=== PATIENT | male | born 1955 | race Caucasian/White ===

== ENCOUNTER → 2016-11-17 | Outpatient (CLI) | payer MEDICARE ==
[~2016-11-17] MED LIST: ASCO-262 PO; ASPI-999 PO; ATOR40TA70 PO; ATRV10T PO; B12/1TAB3 PO; BACL10TA PO; BACL20TA PO; CETI10TA23 PO; CYCL10TA9 PO; DIAZ10TA PO; FLUV50TA3 PO; GABA-486 PO; GARL1TAB PO; MECL-124 PO; MULT-974 PO; NAPR-1033 PO; NAPR-243 PO; NF-ESOM40C PO; POTA25TA7 PO; THIO5CAP2 PO; TIZA2TAB3 PO; TRAZ-144 PO; TRM50T PO; [UNRECOGNIZED DRUG - OTHER] PO
--- OUTSIDE RECORDS SUMMARY | 2016-11-17 09:48 | XMS REPORT | Continuity of Care Document ---
Author Author [facility] Organization [facility] Address Unknown Phone Unavailable Care Team Providers Care Advertising Director Name Role Phone JULIO JOHNSON MD PCP Insurance Providers Payer Name Policy Number Subscriber Name Relationship [employer]ps [employer] [id number] Kel Toth 18 Self / Same As Patient Advance Directives Directive Response Recorded Date/Time Advance Directives No 03/24/16 3:39pm Health Care Power of Fish Stringer Assembler No 03/24/16 3:39pm Organ Donor No 03/24/16 3:39pm Resuscitation Status Full Code 03/24/16 3:39pm Problems Active Problems Medical Problem Onset Date Status Dizziness Unknown Acute Dizziness Unknown Acute Fatigue Unknown Acute Fatigue Unknown Acute Heat exhaustion Unknown Acute Occasional tremors Unknown Acute Medications Current Home Medications Medication Dose Units Route Directions Days/Qty Instructions Start Date Diazepam 10 Mg 10 Mg Oral Twice A Day 10/30/11 Esomeprazole Magnesium 40 Mg 40 Mg Oral Daily 10/30/11 Gabapentin 100 Mg 100 Mg Oral Three Times A Day 04/13/15 Thiothixene 5 Mg 5 Mg Oral Daily 04/13/15 Baclofen 20 Mg 20 Mg Oral Twice A Day as needed for Muscle Spasms Fluvoxamine Maleate 50 Mg 50 Mg Oral Daily 03/25/16 Past Home Medications Medication Directions Ordered Status Atorvastatin Calcium 10 Mg Tablet, 40 Mg Oral Daily 10/30/11 Discontinued [Noven] , 1 Tab Oral Daily 10/30/11 Discontinued Cyclobenzaprine Hcl (Flexeril) 10 Mg Tablet, 1 Each Oral Q8hr Prn 10/30/11 Discontinued Naproxen 500 Mg Tablet, 1 Each Oral Three Times A Day And Prn 10/30/11 Discontinued Tramadol Hcl 50 Mg Tab, 50 Mg Oral Q4-6HOURS as needed 10/30/11 Discontinued Meclizine Hcl 25 Mg Tab, 1-2 Tab Oral Q 4-6 Hours as needed for Dizziness Discontinued Baclofen (Lioresal) 10 Mg Tablet, 10 Mg Oral Twice A Day as needed for Muscle Spasms 04/13/15 Discontinued Tizanidine Hcl 2 Mg Tablet, 1 Tab Oral Four Times Daily 04/13/15 Discontinued Trazodone Hcl 50 Mg Tablet, 1 Tab Oral Twice A Day 04/13/15 Discontinued Social History Social History Problem Response Recorded Date/Time Alcohol Use Rarely Uses 03/24/2016 3:39pm Recreational Drug Use N clean for 20 yrs 03/24/2016 3:39pm Recent Foreign Travel No 03/24/2016 3:39pm Recent Infectious Disease Exposure No 03/24/2016 3:39pm Hospitalization with Isolation Denies 03/24/2016 3:39pm Sexually Transmitted Disease No 03/24/2016 3:39pm Smoking Status Never a Smoker 03/24/2016 3:38pm Do you dip or chew tobacco? Yes 04/26/2015 4:05pm Query Response Start Date Stop Date Smoking Status Never a Smoker Hospital Discharge Instructions No hospital discharge instructions. Plan of Care Discharge Date 03/24/16 4:00pm Prescriptions See Medication Section Functional Status No functional status results. Allergies, Adverse Reactions, Alerts Allergen Type Severity Reaction Status Last Updated Codeine Allergy Mild NAUSEA Active 10/30/11 Immunizations Name Given Type Date of Influenza Vaccine 07/19/12 Historical Tetanus Booster (TDap) Less than 5yrs Historical Vital Signs Acute Vital Signs Vital Response Date/Time Pulse Rate (adult) 73 bpm (60 - 90) 03/24/2016 3:39pm O2 Sat by Pulse Oximetry 98 % (88 - 100) 03/24/2016 3:39pm Blood Pressure 131/92 mm Hg 03/24/2016 3:39pm Height (Feet) 5 feet 03/24/2016 3:39pm Height (Inches) 8.00 inches 03/24/2016 3:39pm Height (Calculated Centimeters) 172.317771 cm 03/24/2016 3:39pm Weight (Pounds) 163 pounds 03/24/2016 3:39pm Weight (Ounces) 4.0 oz 03/24/2016 3:39pm Weight (Calculated Grams) 58535.955 gm 03/24/2016 3:39pm Weight (Calculated Kilograms) 74.558958 kilograms 03/24/2016 3:39pm Calculated BMI 27.12 03/24/2016 3:39pm Results No known relevant diagnostic tests, laboratory data and/or discharge summary. Procedures No known history of procedures. Encounters Encounter Location Arrival/Admit Date Discharge/Depart Date Attending Provider Registered Clinic [facility] 03/24/16 3:23pm KEV KLINE DO
--- NOTE | 2016-11-17 10:27 | Diagnostic Imaging Report ---
INDICATION: Chronic back pain. Lumbar spine. FINDINGS: AP and lateral views of lumbar spine show mild degenerative disc changes at L1-L2 and L2-L3. There is a grade 1 spondylolisthesis at L5-S1. Alignment is otherwise normal. There are no compression fractures. IMPRESSION: 1. Grade 1 spondylolisthesis L5-S1. Early degenerative disc changes L1-L2 and L2-L3. There are no acute abnormalities. Dictated by: Dictated on workstation # [id number]
--- NOTE | 2016-11-17 10:40 | Diagnostic Imaging Report ---
INDICATION: Chronic back pain. Thoracic spine. AP and lateral views of the thoracic spine show normal vertebral body height and alignment. Disc spaces are well maintained. Pedicles are intact. IMPRESSION: Negative thoracic spine. Dictated by: Dictated on workstation # [id number]
== END ==
LOC: RAD 09:44
PROVIDERS: ATTEND Nurse Practitioner Family
DX: M54.5 Low back pain (principal); M54.6 Pain in thoracic spine
CPT/HCPCS: 72072; 72100

== ENCOUNTER 2018-02-24 05:37 | Outpatient (CLI) | payer MEDICARE ==
[~2018-02-24] VITALS: Ht 172.7 cm; Wt 77.2 kg
[~2018-02-24 05:37] MED LIST changes: -GARL1TAB PO; +GARL1TAB2 PO
[2018-02-24] MEDS ORDERED: ESOM20CA37 PO (10:17)
[2018-02-24] MEDS ORDERED: DIAZ10TA3 PO (10:17)
[2018-02-24] MEDS ORDERED: SIMV20TA3 PO (10:17)
[2018-02-24] MEDS ORDERED: THIO5CAP2 PO (10:17)
== END 2018-02-24 10:39 ==
LOC: PREOP 05:37
PROVIDERS: ATTEND Surgery
DX: Z01.818 Encounter for other preprocedural examination (principal); Z12.11 Encounter for screening for malignant neoplasm of colon; K21.9 Gastro-esophageal reflux disease without esophagitis

== ENCOUNTER 2018-03-01 09:13 | Day surgery (SDC) | payer MEDICARE ==
[~2018-03-01] VITALS: Ht 172.7 cm; Wt 77.2 kg
[~2018-03-01 09:13] MED LIST changes: +DIAZ10TA3 PO; +ESOM20CA37 PO; +SIMV20TA3 PO
--- OUTSIDE RECORDS SUMMARY | 2018-03-01 09:17 | XMS REPORT ---
Author Author DENISE FERNÁNDEZ Organization [facility] Address [address] [place] [address] Care Team Providers Care Customer Sales Service Manager Name Role Phone DENISE FERNÁNDEZ Unavailable PROBLEMS Type Condition ICD9-CM Code UAX71-MR Code Onset Dates Condition Status SNOMED Code Problem Anxiety state, unspecified F41.1 Active 027690697 Problem Dental examination Z01.20 Active 972900624 Problem Affective disorder 296.90 Active 19843538 ALLERGIES No Known Allergies SOCIAL HISTORY No smoking Hx information available PLAN OF CARE Activity Details Follow Up prn Reason: VITAL SIGNS MEDICATIONS No Known Medications RESULTS No Results PROCEDURES Procedure Date Ordered Related Diagnosis Body Site [facility] VISIT MENTAL HEALTH ESTAB PT Nov 20, 2016 Psychotherapy, patient &/family, 30 minutes, established patient Nov 20, 2016 IMMUNIZATIONS No Known Immunizations
--- OUTSIDE RECORDS SUMMARY | 2018-03-01 09:18 | XMS REPORT ---
Author Author DENISE FERNÁNDEZ Organization [facility] Address [address] [place] [address] Care Team Providers Care Cuff Setter Lockstitch Name Role Phone DENISE FERNÁNDEZ Unavailable PROBLEMS Type Condition ICD9-CM Code LTK46-PP Code Onset Dates Condition Status SNOMED Code Problem Anxiety state, unspecified F41.1 Active 902841549 Problem Dental examination Z01.20 Active 879395524 Problem Affective disorder 296.90 Active 22084376 ALLERGIES No Known Allergies SOCIAL HISTORY No smoking Hx information available PLAN OF CARE Activity Details Follow Up 2 Weeks Reason: VITAL SIGNS MEDICATIONS Medication Instructions Dosage Frequency Start Date End Date Duration Status Hydrocodone-Acetaminophen 10-325 MG Orally every 6 hrs 1 tablet as needed 6h Active Omeprazole 40 MG Orally Once a day 1 capsule 24h Active Thiothixene 5 MG Orally Twice a day 1 capsule 12h Active Valium 5 MG Active Fluvoxamine Maleate 25 MG Orally Once a day 1 tablet at bedtime 24h Active Diazepam 10 MG Orally Twice a day 1 tablet as needed 12h Active Proctozone-HC 2.5 % Rectal Twice a day 1 application to affected area 12h Active Quetiapine Fumarate 50 MG Orally Once a day 1 tablet at bedtime 24h Active RESULTS No Results PROCEDURES Procedure Date Ordered Related Diagnosis Body Site [facility] VISIT MENTAL HEALTH ESTAB PT Nov 10, 2016 Psychotherapy, patient &/family, 30 minutes, established patient Nov 10, 2016 IMMUNIZATIONS No Known Immunizations
--- OUTSIDE RECORDS SUMMARY | 2018-03-01 09:18 | XMS REPORT ---
Author Author RAVEN LANGE [facility] e[employer] Address Unknown Phone Unavailable Care Team Providers Care Oil Extractor Name Role Phone RAVEN LANGE CP Unavailable Allergies No Known Allergies Problems Problem Type Condition Code Onset Dates Condition Status Assessment Dental examination Z01.20 Active Problem Affective disorder 296.90 Active Medications No Known Medications Procedures Procedure Coding System Code Date Billing Notes on claim CPT-4 EC109 Aug 14, 2015 Results No Known Results Summary Purpose eClinicalWorks Submission
--- OUTSIDE RECORDS SUMMARY | 2018-03-01 09:18 | XMS REPORT ---
Author Author DENISE FERNÁNDEZ [facility] Address [address] [place] [address] Care Team Providers Care Line Erector Name Role Phone DENISE FERNÁNDEZ Unavailable PROBLEMS Type Condition ICD9-CM Code OYZ30-VE Code Onset Dates Condition Status SNOMED Code Problem Anxiety state, unspecified F41.1 Active 946372553 Problem Dental examination Z01.20 Active 442292961 Problem Affective disorder 296.90 Active 21049020 ALLERGIES No Known Allergies SOCIAL HISTORY No smoking Hx information available PLAN OF CARE VITAL SIGNS MEDICATIONS No Known Medications RESULTS No Results PROCEDURES No Known procedures IMMUNIZATIONS No Known Immunizations
--- OUTSIDE RECORDS SUMMARY | 2018-03-01 09:18 | XMS REPORT ---
Author Author CHEY GILBERTO Organization [facility] Address [address] [place] [address] Care Team Providers Care Fly Fishing Guide Name Role Phone GILBERTO GUERRIER Unavailable PROBLEMS Type Condition ICD9-CM Code FVH87-KZ Code Onset Dates Condition Status SNOMED Code Problem Anxiety state, unspecified F41.1 Active 584869730 Problem Affective disorder 296.90 Active 07664496 ALLERGIES No Known Allergies ENCOUNTERS Encounter Location Date Diagnosis [facility] [id number] [place] [address] [id number] Jun, Dental examination Z01.20 [facility] [id number] [place] [address] [id number] May, Dental examination Z01.20 and Periapical abscess K04.7 [facility] [id number] [place] [address] [id number] Dec, Dental examination Z01.20 [facility] [id number] [place] [address] [id number] Nov, Dental caries K02.9 [facility] [id number] [place] [address] [id number] Nov, Dental examination Z01.20 [facility] [id number] [place] [address] [phone] Nov, Anxiety state, unspecified F41.1 [facility] [address] [id number] [place] [address] Oct [facility] [id number] [place] [address] [phone] Oct, Anxiety state, unspecified F41.1 [facility] [id number] [place] [address] [id number] Sep, Dental examination Z01.20 [facility] [address] [facility] [id number] [phone] Mar, Dental examination Z01.20 [facility] [address] [facility] [id number] [phone] Oct, Encounter for dental examination Z01.20 [facility] [address] [facility] [id number] [phone] Sep, Encounter for dental examination Z01.20 [facility] [address] [phone] Aug, Encounter for dental examination Z01.20 [facility] [id number] [place] [address] [id number] Jul, Dental examination Z01.20 [facility] [address] [id number] [address] Jun, Affective disorder 296.90 and Roe II diagnosis deferred 799.9 IMMUNIZATIONS No Known Immunizations SOCIAL HISTORY Never Assessed REASON FOR VISIT GREGORY PLAN OF CARE Activity Details Follow Up prn Reason:Filling #4 VITAL SIGNS Blood pressure systolic 128 mmHg 2017-07-06 Blood pressure diastolic 92 mmHg 2017-07-06 MEDICATIONS Medication Instructions Dosage Frequency Start Date End Date Duration Status Pantoprazole Sodium Active Ciprofloxacin HCl Active Baclofen Active MethylPREDNISolone Active Omeprazole 40 MG Orally Once a day 1 capsule 24h Active Trazodone HCl Active Fluticasone Propionate (Inhal) Active Diazepam 10 MG Orally Twice a day 1 tablet as needed 12h Active Oxycodone-Acetaminophen Active Fluvoxamine Maleate 25 MG Orally Once a day 1 tablet at bedtime 24h Active Flucelvax Quadrivalent Active Thiothixene 5 MG Orally Twice a day 1 capsule 12h Active Permethrin Active RESULTS No Results PROCEDURES Procedure Date Ordered Result Body Site LTD ORAL EVALUATION - PROBLEM FOCUS Jul 06, 2017 INTRAORL-PERIAPICAL 1 FILM 04301 Jul 06, 2017 INSTRUCTIONS MEDICATIONS ADMINISTERED No Known Medications MEDICAL (GENERAL) HISTORY Type Description Date Medical History Prednisone Medical History Arthiritis Medical History Back Trouble Medical History Head/neck/jaw injury Medical History Surgery rods/pins/screw left knee Medical History acute bronchitis Medical History anxiety Medical History erectile dysfunction Medical History esophagitis/gerd Medical History hallucination Medical History hypercholesterolemia Medical History insomnia Medical History parasitic infection Surgical History Knee Surgery 2010 Surgical History Knee Surgery 2014 Surgical History Rt. shoulder surgery 2008 Surgical History Elbow repair 2017 Hospitalization History Hospitalization for surgery only Hospitalization History for chest pain 11/04
--- OUTSIDE RECORDS SUMMARY | 2018-03-01 09:18 | XMS REPORT ---
Author Author JOSE CAO Organization [facility] Address [address] [place] [address] Care Team Providers Care Pinmaker Name Role Phone CAOJOSE Unavailable PROBLEMS Type Condition ICD9-CM Code BRO29-NX Code Onset Dates Condition Status SNOMED Code Problem Anxiety state, unspecified F41.1 Active 233176403 Problem Affective disorder 296.90 Active 69547707 ALLERGIES No Known Allergies ENCOUNTERS Encounter Location Date Diagnosis [facility] [id number] [place] [address] [id number] Jun, Dental examination Z01.20 [facility] [id number] [place] [address] [id number] May, Dental examination Z01.20 and Periapical abscess K04.7 [facility] [id number] [place] [address] [phone] Dec, Dental examination Z01.20 [facility] [id number] [place] [address] [id number] Nov, Dental caries K02.9 [facility] [id number] [place] [address] [phone] Nov, Dental examination Z01.20 [facility] [place] [id number] [place] [address] [phone] Nov, Anxiety state, unspecified F41.1 [facility] [address] [id number] [place] [address] Oct [facility] [place] [address] [place] [address] [phone] Oct, Anxiety state, unspecified F41.1 [facility] [id number] [place] [address] [id number] Sep, Dental examination Z01.20 [facility] [address] [facility] [id number] [phone] Mar, Dental examination Z01.20 [facility] [address] [facility] [id number] [phone] Oct, Encounter for dental examination Z01.20 [facility] [address] [facility] [id number] [phone] Sep, Encounter for dental examination Z01.20 [facility] [address] [phone] Aug, Encounter for dental examination Z01.20 [facility] [address] [phone] Jul, Dental examination Z01.20 [facility] [place] [address] [facility] [id number], [place] [address] Jun, Affective disorder 296.90 and Perry II diagnosis deferred 799.9 IMMUNIZATIONS No Known Immunizations SOCIAL HISTORY Never Assessed REASON FOR VISIT GREGORY PLAN OF CARE VITAL SIGNS Blood pressure systolic 113 mmHg 2017-06-04 Blood pressure diastolic 80 mmHg 2017-06-04 MEDICATIONS Medication Instructions Dosage Frequency Start Date End Date Duration Status Omeprazole 40 MG Orally Once a day 1 capsule 24h Active Thiothixene 5 MG Orally Twice a day 1 capsule 12h Active Diazepam 10 MG Orally Twice a day 1 tablet as needed 12h Active Clindamycin HCl 150 MG Orally every 8 hrs 1 capsule 8h May,May 7 days Active Vitamin D Active Valium 5 MG Active Fluvoxamine Maleate 25 MG Orally Once a day 1 tablet at bedtime 24h Active Quetiapine Fumarate 50 MG Orally Once a day 1 tablet at bedtime 24h Active Hydrocodone-Acetaminophen 10-325 MG Orally every 6 hrs 1 tablet as needed 6h Active Proctozone-HC 2.5 % Rectal Twice a day 1 application to affected area 12h Active RESULTS No Results PROCEDURES Procedure Date Ordered Result Body Site LTD ORAL EVALUATION - PROBLEM FOCUS Jun 04, 2017 INTRAORL-PERIAPICAL 1 FILM 00168 Jun 04, 2017 SURG REMOVAL ERUPTED TOOTH Jun 04, 2017 INSTRUCTIONS MEDICATIONS ADMINISTERED No Known Medications [...]
--- OUTSIDE RECORDS SUMMARY | 2018-03-01 09:18 | XMS REPORT ---
Author Author KYLEE SEXTON [facility] Address Unknown Care Team Providers Care Blending Line Attendant Name Role Phone KYLEE SEXTON Unavailable PROBLEMS Type Condition ICD9-CM Code FLF63-FB Code Onset Dates Condition Status SNOMED Code Problem Anxiety state, unspecified F41.1 Active 188247327 Problem Dental examination Z01.20 Active 774483152 Problem Affective disorder 296.90 Active 47522939 ALLERGIES No Known Allergies SOCIAL HISTORY Never Assessed PLAN OF CARE Activity Details Follow Up 1 Week Reason:suture removal, possible flipper adjustment sjf VITAL SIGNS Blood pressure systolic 123 mmHg 2016-12-16 Blood pressure diastolic 68 mmHg 2016-12-16 MEDICATIONS Medication Instructions Dosage Frequency Start Date End Date Duration Status Quetiapine Fumarate 50 MG Orally Once a day 1 tablet at bedtime 24h Active Fluvoxamine Maleate 25 MG Orally Once a day 1 tablet at bedtime 24h Active Thiothixene 5 MG Orally Twice a day 1 capsule 12h Active Omeprazole 40 MG Orally Once a day 1 capsule 24h Active Diazepam 10 MG Orally Twice a day 1 tablet as needed 12h Active Vitamin D Active Hydrocodone-Acetaminophen 10-325 MG Orally every 6 hrs 1 tablet as needed 6h Active Valium 5 MG Active Proctozone-HC 2.5 % Rectal Twice a day 1 application to affected area 12h Active RESULTS No Results PROCEDURES Procedure Date Ordered Result Body Site EXTRAC ERUPTED TOOTH/EXPOSED ROOT Dec 16, 2016 SURG REMOVAL ERUPTED TOOTH Dec 16, 2016 IMMUNIZATIONS No Known Immunizations MEDICAL (GENERAL) HISTORY Type Description Date Medical [...]
--- OUTSIDE RECORDS SUMMARY | 2018-03-01 09:18 | XMS REPORT ---
Author Author KYLEE SEXTON [employer] Address Unknown Phone Unavailable Care Team Providers Care Curriculum Director Name Role Phone KYLEE SEXTON CP Unavailable Allergies, Adverse Reactions, Alerts Substance Reaction Event Type N.K.D.A. Info Not Available Non Drug Allergy Problems Problem Type Condition Code Onset Dates Condition Status Problem Affective disorder 296.90 Active Assessment Encounter for dental examination Z01.20 Active Problem Encounter for dental examination Z01.20 Active Medications Medication Code System Code Instructions Start Date End Date Status Dosage Thiothixene [facility] [address]-39 5 MG Orally Twice a day 1 capsule [place] [facility] [address]-14 10-325 MG Orally every 6 hrs 1 tablet as needed [place]ora [facility] [address]-69 Orally not defined Omeprazole [facility] [address]-50 40 MG Orally Once a day 1 capsule Cefadroxil [facility] [address]-68 500 MG/5ML Orally not defined Proctozone-HC [facility] [address]-55 2.5 % Rectal Twice a day 1 application to affected area Valium [facility] [address]-08 5 MG Orally not defined Quetiapine Fumarate [facility] [address]-91 50 MG Orally Once a day 1 tablet at bedtime Bactrim DS [facility] [address]-69 800-160 MG Orally Once a day 1 tablet Hydrocodone-Acetaminophen [facility] [address]-36 10-325 MG Orally every 6 hrs 1 tablet as needed Procedures Procedure Coding System Code Date INTRAORL-PERIAPICAL 1 FILM 93600 CPT-4 D0220 Oct 03, 2015 BITEWING - SINGLE FILM CPT-4 D0270 Oct 03, 2015 LTD ORAL EVALUATION - PROBLEM FOCUS CPT-4 D0140 Oct 03, 2015 Vital Signs Date/Time: Oct 03, 2015 Blood Pressure Diastolic 79 mmHg Blood Pressure Systolic 113 mmHg Results No Known Results Summary Purpose eClinicalWorks Submission
--- OUTSIDE RECORDS SUMMARY | 2018-03-01 09:18 | XMS REPORT ---
Author Author KYLEE SEXTON [facility] Address Unknown Care Team Providers Care Bench Lay Out Technician Name Role Phone DARSHAN KYLEE Unavailable PROBLEMS Type Condition ICD9-CM Code RAO46-YZ Code Onset Dates Condition Status SNOMED Code Problem Anxiety state, unspecified F41.1 Active 169018381 Problem Dental examination Z01.20 Active 197421473 Problem Affective disorder 296.90 Active 04806095 ALLERGIES Substance Reaction Event Type Date Status N.K.D.A. Unknown Non Drug Allergy Sep, Unknown SOCIAL HISTORY No smoking Hx information available PLAN OF CARE Activity Details Follow Up prn Reason:prophy VITAL SIGNS Blood pressure systolic 130 mmHg 2016-09-24 Blood pressure diastolic 99 mmHg 2016-09-24 MEDICATIONS Medication Instructions Dosage Frequency Start Date End Date Duration Status Omeprazole 40 MG Orally Once a day 1 capsule 24h Active Diazepam 10 MG Orally Twice a day 1 tablet as needed 12h Active Thiothixene 5 MG Orally Twice a day 1 capsule 12h Active Fluvoxamine Maleate 25 MG Orally Once a day 1 tablet at bedtime 24h Active RESULTS No Results PROCEDURES Procedure Date Ordered Related Diagnosis Body Site RESIN COMPOS - 3 SURFACES POSTERIOR Oct 28, 2016 IMMUNIZATIONS No Known Immunizations
--- OUTSIDE RECORDS SUMMARY | 2018-03-01 09:19 | XMS REPORT ---
Author Author RAVEN LANGE [employer] Address Unknown Phone Unavailable Care Team Providers Care Community Affairs Director Name Role Phone RAVEN LANGE CP Unavailable Allergies, Adverse Reactions, Alerts Substance Reaction Event Type N.K.D.A. Info Not Available Non Drug Allergy Problems Problem Type Condition Code Onset Dates Condition Status Problem Affective disorder 296.90 Active Assessment Encounter for dental examination Z01.20 Active Problem Encounter for dental examination Z01.20 Active Medications Medication Code System Code Instructions Start Date End Date Status Dosage Quetiapine Fumarate [facility] [address]-00 50 MG Orally Once a day 1 tablet at bedtime [place] [facility] [address]-95 10-325 MG Orally every 6 hrs 1 tablet as needed Restora [facility] [address]-63 Orally not defined Proctozone-HC [facility] [address]-30 2.5 % Rectal Twice a day 1 application to affected area Valium [facility] [address]-39 5 MG Orally not defined Hydrocodone-Acetaminophen [facility] [address]-63 10-325 MG Orally every 6 hrs 1 tablet as needed Cefadroxil [facility] [address]-86 500 MG/5ML Orally not defined Omeprazole [facility] [address]-06 40 MG Orally Once a day 1 capsule Thiothixene [facility] [address]-85 5 MG Orally Twice a day 1 capsule Procedures Procedure Coding System Code Date Periodontal scaling and root CPT-4 D4341 Sep 07, 2015 Periodontal scaling and root CPT-4 D4341 Sep 07, 2015 Vital Signs Date/Time: Nov 02, 2015 Blood Pressure Diastolic 59 mmHg Blood Pressure Systolic 125 mmHg Cardiac Monitoring Heart Rate 61 bpm Results No Known Results Summary Purpose eClinicalWorks Submission
--- OUTSIDE RECORDS SUMMARY | 2018-03-01 09:19 | XMS REPORT ---
Author Author RAVEN LANGE [employer] Address Unknown Phone Unavailable Care Team Providers Care Gut Sorter Name Role Phone RAVEN LANGE CP Unavailable Allergies, Adverse Reactions, Alerts Substance Reaction Event Type N.K.D.A. Info Not Available Non Drug Allergy Problems Problem Type Condition Code Onset Dates Condition Status Problem Affective disorder 296.90 Active Assessment Encounter for dental examination Z01.20 Active Problem Encounter for dental examination Z01.20 Active Medications Medication Code System Code Instructions Start Date End Date Status Dosage Restora [facility] [address]-22 Orally not defined Bactrim DS [facility] [address]-61 800-160 MG Orally Once a day 1 tablet Quetiapine Fumarate [facility] [address]-28 50 MG Orally Once a day 1 tablet at bedtime Thiothixene [facility] [address]-56 5 MG Orally Twice a day 1 capsule Cefadroxil [facility] [address]-56 500 MG/5ML Orally not defined Omeprazole [facility] [address]-02 40 MG Orally Once a day 1 capsule Aguirre [facility] [address]-46 10-325 MG Orally every 6 hrs 1 tablet as needed Proctozone-HC [facility] [address]-95 2.5 % Rectal Twice a day 1 application to affected area Valium [facility] [address]-33 5 MG Orally not defined Hydrocodone-Acetaminophen [facility] [address]-05 10-325 MG Orally every 6 hrs 1 tablet as needed Procedures Procedure Coding System Code Date INTRAORL-PERIAPICAL EA ADD FILM CPT-4 D0230 Sep 07, 2015 INTRAORL-PERIAPICAL EA ADD FILM CPT-4 D0230 Sep 07, 2015 INTRAORL-PERIAPICAL 1 FILM 06626 CPT-4 D0220 Sep 07, 2015 PANORAMIC FILM SEE ALSO CODE 98575 CPT-4 D0330 Sep 07, 2015 BITEWINGS - FOUR FILMS CPT-4 D0274 Sep 07, 2015 Vital Signs Date/Time: Sep 07, 2015 Blood Pressure Diastolic 76 mmHg Blood Pressure Systolic 123 mmHg Cardiac Monitoring Heart Rate 60 bpm Results No Known Results Summary Purpose [employer] Submission
--- OUTSIDE RECORDS SUMMARY | 2018-03-01 09:19 | XMS REPORT ---
Author Author DENISE FERNÁNDEZ Organization [employer] Address Unknown Phone Unavailable Care Team Providers Care Shop Firer/Fireman Name Role Phone DENISE FERNÁNDEZ CP Unavailable Allergies No Known Allergies Problems Problem Type Condition ICD-9 Code Onset Dates Condition Status Assessment Affective disorder 296.90 Active Assessment Port [place] II diagnosis deferred 799.9 Active Problem Affective disorder 296.90 Active Medications No Known Medications Procedures Procedure Coding System Code Date Psych diagnostic evaluation, new patient CPT-4 16839 Jun 29, 2015 [facility] VISIT MENTAL HEALTH NEW PT CPT-4 G0469 Jun 29, 2015 Results No Known Results Summary Purpose [employer] Submission
--- OUTSIDE RECORDS SUMMARY | 2018-03-01 09:19 | XMS REPORT ---
Author Author KYLEE SEXTON [facility] Address Unknown Care Team Providers Care Mud Grinder Name Role Phone KYLEE SEXTON Unavailable PROBLEMS Type Condition ICD9-CM Code FNN25-ZP Code Onset Dates Condition Status SNOMED Code Problem Anxiety state, unspecified F41.1 Active 329253264 Problem Dental examination Z01.20 Active 171514540 Problem Affective disorder 296.90 Active [id number] ALLERGIES No Known Allergies SOCIAL HISTORY Never Assessed PLAN OF CARE Activity Details Follow Up 1.5Week Reason:one hour. ext 8 and 10/seat flipper VITAL SIGNS MEDICATIONS Medication Instructions Dosage Frequency Start Date End Date Duration Status Thiothixene 5 MG Orally Twice a day 1 capsule 12h Active Omeprazole 40 MG Orally Once a day 1 capsule 24h Active Quetiapine Fumarate 50 MG Orally Once a day 1 tablet at bedtime 24h Active Fluvoxamine Maleate 25 MG Orally Once a day 1 tablet at bedtime 24h Active Diazepam 10 MG Orally Twice a day 1 tablet as needed 12h Active Valium 5 MG Active Proctozone-HC 2.5 % Rectal Twice a day 1 application to affected area 12h Active Hydrocodone-Acetaminophen 10-325 MG Orally every 6 hrs 1 tablet as needed 6h Active RESULTS No Results PROCEDURES Procedure Date Ordered Result Body Site INTERIM PARTIAL DENTURE Dec 02, 2016 Billing Notes on claim Dec 02, 2016 IMMUNIZATIONS No Known Immunizations MEDICAL (GENERAL) [...]
--- OUTSIDE RECORDS SUMMARY | 2018-03-01 09:20 | XMS REPORT | Continuity of Care Document ---
Author Author [facility] Organization [facility] Address Unknown Phone Unavailable Allergies Active Description Code Type Severity Reaction Onset Reported/Identified Relationship to Patient Clinical Status Yes NO KNOWN DRUG ALLERGIES NO KNOWN DRUG ALLERG UNKNOWN Yes codeine [id number] Drug Allergy Mild NAUSEA 02/24/2018 Medications Medication Packaging Start Date Stop Date Route Dosage Sig AMOX-CLAV 875/125 TAB 875 MG-125MG (AUGMENTIN) TAB 11/27/2016 11/27/2016 ONCE&0926 RabAvert (PF) (rabies vaccine, pcec (PF)) IM suspension for reconstitution ML 11/27/20162016 ONCE&1028 RabAvert (PF) (rabies vaccine, pcec (PF)) IM suspension for reconstitution ML 11/30/20162016 ONCE&0851 RabAvert (PF) (rabies vaccine, pcec (PF)) IM suspension for reconstitution ML 12/04/20162016 ONCE&0856 RabAvert (PF) (rabies vaccine, pcec (PF)) IM suspension for reconstitution ML 12/11/20162016 ONCE&0928 Problems Date Dx Coded Attending Type Code Diagnosis Diagnosed By 10/30/2011 Ot 272.4 HYPERLIPIDEMIA NEC/NOS 10/30/2011 Ot 305.1 TOBACCO USE DISORDER 10/30/2011 Ot 724.1 PAIN IN THORACIC SPINE 10/30/2011 Ot 729.1 MYALGIA AND MYOSITIS NOS 10/30/2011 Ot 786.05 SHORTNESS OF BREATH 10/30/2011 Ot V58.69 OTH MED,LT, CURRENT USE 11/06/2012 Ot 564.00 UNSPEC CONSTIPATION 11/06/2012 Ot 789.09 ABDOMINAL PAIN, OTHER SPECIFIED SITE 09/12/2014 Ot 717.0 09/12/2014 Ot 443.89 09/12/2014 Ot 756.3 09/12/2014 BONI PETTY APRN Ot 608.9 09/12/2014 CARLINE LEWIS DO Ot 719.40 JOINT PAIN-UNSPEC 09/12/2014 CARLINE LEWIS DO Chris Ot 729.1 MYALGIA AND MYOSITIS NOS 09/12/2014 CARLINE LEWIS DO Chris Ot 780.4 DIZZINESS AND GIDDINESS 09/12/2014 DEBBIE PHIPPS CARLINE Chris Ot 780.79 OTH MALAISE FATIGUE 09/13/2014 BONI PETTY Jose Ramon PRESSED OR BLOWN GLASS WORKER Ot 608.9 10/23/2014 BONI PETTY Jose Ramon INIGUEZ Ot 298.9 10/23/2014 BONI PETTY Jose Ramon PRESSED OR BLOWN GLASS WORKER Ot 789.00 12/11/2014 Ot 717.0 12/11/2014 Ot 443.89 12/11/2014 Ot 756.3 12/11/2014 BONI PETTY Jose Ramon PRESSED OR BLOWN GLASS WORKER Ot 608.9 12/11/2014 BONI PETTY Jose Ramon PRESSED OR BLOWN GLASS WORKER Ot 298.9 12/11/2014 BONI PETTY Jose Ramon PRESSED OR BLOWN GLASS WORKER Ot 789.00 01/15/2015 Ot 717.0 01/15/2015 Ot 443.89 01/15/2015 Ot 756.3 01/15/2015 BONI PETTY Jose Ramon PRESSED OR BLOWN GLASS WORKER Ot 608.9 01/15/2015 BONI PETTY Jose Ramon PRESSED OR BLOWN GLASS WORKER Ot 298.9 01/15/2015 BONI PETTY Jose Ramon PRESSED OR BLOWN GLASS WORKER Ot 789.00 01/15/2015 Ot 724.02 02/16/2015 ALEX GRANGER, JULIO Perez Ot 786.59 02/16/2015 Ot 717.0 02/16/2015 Ot 443.89 02/16/2015 Ot 756.3 02/16/2015 PETTY BONI Jose Ramon INIGUEZ Ot 608.9 02/16/2015 BONI PETTY Jose Ramon PRESSED OR BLOWN GLASS WORKER Ot 298.9 02/16/2015 BONI PETTY Jose aRmon PRESSED OR BLOWN GLASS WORKER Ot 789.00 02/16/2015 Ot 724.02 02/16/2015 LUDIN GRANGER, VIDHI Burdick Ot 721.3 02/16/2015 VIDHI NOLAND MD Ot 722.52 02/16/2015 VIDHI NOLAND MD Ot V58.69 02/16/2015 ALEX GRANGER, JULIO Perez Ot 733.42 02/16/2015 ALEX GRANGER, JULIO Perez Ot 789.00 02/16/2015 ALEX GRANGER, JULIO Perez Ot 786.59 02/16/2015 VIDHI NOLAND MD Ot 721.3 02/16/2015 VIDHI NOLAND MD Ot 722.52 02/16/2015 VIDHI NOLAND MD Ot V58.69 02/16/2015 JULIO JOHNSON MD Ot 733.42 02/16/2015 JULIO JOHNSON MD Ot 789.00 02/20/2015 VIDHI NOLAND MD Ot 721.3 02/20/2015 VIDHI NOLAND MD Ot 722.52 02/20/2015 VIDHI NOLAND MD Ot V58.69 02/20/2015 JULIO JOHNSON MD Ot 786.59 02/20/2015 JULIO JOHNSON MD Ot 733.42 02/20/2015 JULIO JOHNSON MD Ot 789.00 04/13/2015 JULI DAWN MD Ot 992.5 HEAT EXHAUSTION NOS 04/13/2015 JULI DAWN MD Ot E000.8 OTHER EXTERNAL CAUSE STATUS 04/13/2015 JULI DAWN MD Ot E900.0 EXCESSIVE HEAT: WEATHER 04/13/2015 JULI DAWN MD Ot T67.5XXA HEAT EXHAUSTION, UNSPECIFIED, INITIAL EN 04/13/2015 JULI DAWN MD Ot X30.XXXA EXPOSURE TO EXCESSIVE NATURAL HEAT, INIT 04/13/2015 JULI DAWN MD Ot Y99.8 OTHER EXTERNAL CAUSE STATUS 04/26/2015 NOEL DOYLE MD Ot 272.0 PURE HYPERCHOLESTEROLEM 04/26/2015 NOEL DOYLE MD Ot 781.0 ABN INVOLUN MOVEMENT NEC 04/26/2015 NOEL DOYLE MD Ot 786.50 CHEST PAIN NOS 04/26/2015 NOEL DOYLE MD Ot E78.0 PURE HYPERCHOLESTEROLEMIA 04/26/2015 NOEL DOYLE MD Ot V58.69 OT MED,LT,CURRENT USE 05/08/2015 JULIO JOHNSON MD Ot 733.42 05/08/2015 JULIO JOHNSON MD Ot 789.00 05/08/2015 JULIO JOHNSON MD Ot 786.59 05/08/2015 VIDHI NOLAND MD Ot 721.3 05/08/2015 VIDHI NOLAND MD Ot 722.52 05/08/2015 VIDHI NOLAND MD Ot V58.69 05/21/2015 LUDIN GRANGER, VIDHI Burdick Ot 721.3 05/21/2015 VIDHI NOLAND MD Ot 722.52 05/21/2015 VIDHI NOLAND MD Ot V58.69 05/21/2015 ALEX GRANGER, JULIO Perez Ot 733.42 05/21/2015 ALEX GRANGER, JULIO Perez Ot 789.00 05/21/2015 ALEX GRANGER, JULIO Perez Ot 786.59 05/24/2015 BONI PETTY PRESSED OR BLOWN GLASS WORKER Ot 780.4 06/12/2015 VIDHI NOLAND MD Ot 721.3 06/12/2015 VIDHI NOLAND MD Ot 722.52 06/12/2015 VIDHI NOLAND MD Ot V58.69 06/12/2015 ALEX GRANGER, JULIO Perez Ot 733.42 06/12/2015 ALEX GRANGER, JULIO Perez Ot 789.00 06/12/2015 ALEX GRANGER, JULIO Perez Ot 786.59 07/12/2015 Ot 717.0 07/12/2015 Ot 443.89 07/12/2015 Ot 756.3 07/12/2015 BONI PETTY PRESSED OR BLOWN GLASS WORKER Ot 608.9 07/12/2015 BONI PETTY PRESSED OR BLOWN GLASS WORKER Ot 298.9 07/12/2015 BONI PETTY APRN Ot 789.00 07/12/2015 Ot 724.02 07/12/2015 VDIHI NOLAND MD Ot 721.3 07/12/2015 VIDHI NOLAND MD Ot 722.52 07/12/2015 VIDHI NOLAND MD Ot V58.69 07/12/2015 ALEX GRANGER, JULIO Perez Ot 733.42 07/12/2015 ALEX GRANGER, JULIO Perez Ot 789.00 07/12/2015 ALEX GRANGER, JULIO Perez Ot 786.59 07/12/2015 BONI PETTY PRESSED OR BLOWN GLASS WORKER Ot 780.4 07/12/2015 VIDHI NOLAND MD Ot 721.3 07/12/2015 VIDHI NOLAND MD Ot 722.52 07/12/2015 VIDHI NOLAND MD Ot V58.69 07/13/2015 BONI PETTY PRESSED OR BLOWN GLASS WORKER Ot 780.4 07/13/2015 JULIO JOHNSON MD Ot 786.59 07/13/2015 ALEX GRANGER, JULIO Perez Ot 733.42 07/13/2015 ALEX GRANGER, JULIO Perez Ot 789.00 07/13/2015 Ot 724.02 08/03/2015 VIDHI NOLAND MD Ot M51.26 OTHER INTERVERTEBRAL DISC DISPLACEMENT, 08/07/2015 Ot 724.02 08/07/2015 Ot M48.06 08/07/2015 VIDHI NOLAND MD Ot 721.3 08/07/2015 VIDHI NOLAND MD Ot 722.52 08/07/2015 VIDHI NOLAND MD Ot M47.817 08/07/2015 VIDHI NOLAND MD Ot V58.69 08/07/2015 ALEX GRANGER, JULIO Perez Ot 733.42 08/07/2015 ALEX GRANGER, JULIO Perez Ot 789.00 08/07/2015 ALEX GRANGER, JULIO Perez Ot M87.059 08/07/2015 ALEX GRANGER, JULIO Perez Ot R10.9 08/07/2015 ALEX GRANGER, JULIO Perez Ot 786.59 08/07/2015 BONI PETTY PRESSED OR BLOWN GLASS WORKER Ot 780.4 08/07/2015 BONI PETTY PRESSED OR BLOWN GLASS WORKER Ot R42 08/31/2015 SIMEON FORD MEDICAL RECEPTIONIST Ot M23.261 10/29/2015 SIMEON FORD MEDICAL RECEPTIONIST Ot M23.261 11/13/2015 SIMEON FORD MEDICAL RECEPTIONIST Ot M23.261 01/08/2016 FARHAD HERZOG MD Ot M75.111 01/08/2016 FARHAD HERZOG MD Ot M75.112 01/28/2016 FARHAD HERZOG MD Ot M75.111 01/28/2016 FARHAD HERZOG MD Ot M75.112 02/13/2016 FARHAD HERZOG MD Ot M75.111 INCOMPLETE ROTATR-CUFF TEAR/RUPTR OF R S 02/13/2016 FARHAD HERZOG MD Ot M75.112 INCOMPLETE ROTATR-CUFF TEAR/RUPTR OF L S 03/20/2016 Ot 717.0 OLD BUCKET TEAR MED MEN 03/20/2016 Ot 443.89 PERIPH VASCULAR DIS NEC 03/20/2016 Ot 756.3 RIB STERNUM ANOMAL NEC 03/20/2016 MARCIA PETTYCRISTY Albright PRESSED OR BLOWN GLASS WORKER Ot 608.9 MALE GENITAL DIS NOS 03/20/2016 JOVANNY MARCIACRISTY Albright PRESSED OR BLOWN GLASS WORKER Ot 298.9 PSYCHOSIS NOS 03/20/2016 PETTY MARCIACRISTY Albright PRESSED OR BLOWN GLASS WORKER Ot 789.00 ABDOMINAL PAIN, UNSPECIFIED SITE 03/20/2016 Ot 724.02 SPINAL STENOSIS, LUMBAR REG, W/OUT NEURO 03/20/2016 Ot M48.06 SPINAL STENOSIS, LUMBAR REGION 03/20/2016 VIDHI NOLAND MD Ot 721.3 LUMBOSACRAL SPONDYLOSIS 03/20/2016 VIDHI NOLAND MD Ot 722.52 LUMB/LUMBOSAC DISC DEGEN 03/20/2016 VIDHI NOLAND MD Ot M47.817 SPONDYLS W/O MYELOPATHY OR RADICULOPATHY 03/20/2016 VIDHI NOLAND MD Ot V58.69 OT MED,LT,CURRENT USE 03/20/2016 ALEX GRANGER, JULIO Perez Ot 733.42 ASEPTIC NECROSIS FEMUR 03/20/2016 ALEX GRANGER, JULIO Perez Ot 789.00 ABDOMINAL PAIN, UNSPECIFIED SITE 03/20/2016 JULIO JOHNSON MD Ot 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 03/20/2016 ALEX GRANGER, JULIO Perez Ot R10.9 UNSPECIFIED ABDOMINAL PAIN 03/20/2016 ALEX GRANGER, JULIO Perez Ot 786.59 CHEST PAIN NEC 03/20/2016 BONI PETTY PRESSED OR BLOWN GLASS WORKER Ot 780.4 DIZZINESS AND GIDDINESS 03/20/2016 BONI PETTY APRN Ot R42 DIZZINESS AND GIDDINESS 03/20/2016 SIMEON FORD [facility] Ot M23.261 DERANGEMENT OF LAT MENSC DUE TO OLD TEAR 03/20/2016 MINO GRANGER, FARHAD Swanson Ot M75.111 INCOMPLETE ROTATR-CUFF TEAR/RUPTR OF R S 03/20/2016 FARHAD HERZOG MD Ot M75.112 INCOMPLETE ROTATR-CUFF TEAR/RUPTR OF L S 03/24/2016 Ot 717.0 OLD BUCKET TEAR MED MEN 03/24/2016 Ot 443.89 PERIPH VASCULAR DIS NEC 03/24/2016 Ot 756.3 RIB STERNUM ANOMAL NEC 03/24/2016 BONI PETTY PRESSED OR BLOWN GLASS WORKER Ot 608.9 MALE GENITAL DIS NOS 03/24/2016 BONI PETTY PRESSED OR BLOWN GLASS WORKER Ot 298.9 PSYCHOSIS NOS 03/24/2016 MARCIA PETTYCRISTY Albright PRESSED OR BLOWN GLASS WORKER Ot 789.00 ABDOMINAL PAIN, UNSPECIFIED SITE 03/24/2016 Ot 724.02 SPINAL STENOSIS, LUMBAR REG, W/OUT NEURO 03/24/2016 Ot M48.06 SPINAL STENOSIS, LUMBAR REGION 03/24/2016 VIDHI NOLAND MD Ot 721.3 LUMBOSACRAL SPONDYLOSIS 03/24/2016 VIDHI NOLAND MD Ot 722.52 LUMB/LUMBOSAC DISC DEGEN 03/24/2016 VIDHI NOLAND MD Ot M47.817 SPONDYLS W/O MYELOPATHY OR RADICULOPATHY 03/24/2016 VIDHI NOLAND MD Ot V58.69 OT MED,LT,CURRENT USE 03/24/2016 JULIO JOHNSON MD Ot 733.42 ASEPTIC NECROSIS FEMUR 03/24/2016 JULIO JOHNSON MD Ot 789.00 ABDOMINAL PAIN, UNSPECIFIED SITE 03/24/2016 JULIO JOHNSON MD Ot 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 03/24/2016 JULIO JOHNSON MD Ot R10.9 UNSPECIFIED ABDOMINAL PAIN 03/24/2016 JULIO JOHNSON MD Ot 786.59 CHEST PAIN NEC 03/24/2016 BONI PETTY PRESSED OR BLOWN GLASS WORKER Ot 780.4 DIZZINESS AND GIDDINESS 03/24/2016 BONI PETTY PRESSED OR BLOWN GLASS WORKER Ot R42 DIZZINESS AND GIDDINESS 03/24/2016 SIMEON FORD Ot M23.261 DERANGEMENT OF LAT MENSC DUE TO OLD TEAR 03/24/2016 FARHAD HERZOG MD Ot M75.111 INCOMPLETE ROTATR-CUFF TEAR/RUPTR OF R S 03/24/2016 FARHAD HERZOG MD Ot M75.112 INCOMPLETE ROTATR-CUFF TEAR/RUPTR OF L S 03/24/2016 KEV KLINE DO Ot L90.5 SCAR CONDITIONS AND FIBROSIS OF SKIN 03/24/2016 KEV KLINE DO Ot Z01.818 ENCOUNTER FOR OTHER PREPROCEDURAL EXAMIN 03/24/2016 KEV KLINE DO Ot Z11.2 ENCOUNTER FOR SCREENING FOR OTHER BACTER 03/26/2016 KEV KLINE DO Ot L90.5 SCAR CONDITIONS AND FIBROSIS OF SKIN 03/26/2016 RENALDO KLINE DOAIDAN Perez Ot Z01.818 ENCOUNTER FOR OTHER PREPROCEDURAL EXAMIN 03/26/2016 RAISA PHIPPS KEV D Ot Z11.2 ENCOUNTER FOR SCREENING FOR OTHER BACTER 03/27/2016 KEV KLINE DO Ot L90.5 SCAR CONDITIONS AND FIBROSIS OF SKIN 04/01/2016 KEV KLINE DO Ot L90.5 SCAR CONDITIONS AND FIBROSIS OF SKIN 04/02/2016 KEV KLINE DO Ot L90.5 SCAR CONDITIONS AND FIBROSIS OF SKIN 11/17/2016 Ot 717.0 OLD BUCKET TEAR MED MEN 11/17/2016 Ot 443.89 PERIPH VASCULAR DIS NEC 11/17/2016 Ot 756.3 RIB STERNUM ANOMAL NEC 11/17/2016 BONI PETTY PRESSED OR BLOWN GLASS WORKER Ot 608.9 MALE GENITAL DIS NOS 11/17/2016 BONI PETTY PRESSED OR BLOWN GLASS WORKER Ot 298.9 PSYCHOSIS NOS 11/17/2016 BONI PETTY PRESSED OR BLOWN GLASS WORKER Ot 789.00 ABDOMINAL PAIN, UNSPECIFIED SITE 11/17/2016 Ot 724.02 SPINAL STENOSIS, LUMBAR REG, W/OUT NEURO 11/17/2016 Ot M48.06 SPINAL STENOSIS, LUMBAR REGION 11/17/2016 LUDIN GRANGER, VIDHI Burdick Ot 721.3 LUMBOSACRAL SPONDYLOSIS 11/17/2016 VIDHI NOLAND MD Ot 722.52 LUMB/LUMBOSAC DISC DEGEN 11/17/2016 VIDHI NOLAND MD Ot M47.817 SPONDYLS W/O MYELOPATHY OR RADICULOPATHY 11/17/2016 VIDIH NOLAND MD Ot V58.69 OT MED,LT,CURRENT USE 11/17/2016 JULIO JOHNSON MD Ot 733.42 ASEPTIC NECROSIS FEMUR 11/17/2016 JULIO JOHNSON MD Ot 789.00 ABDOMINAL PAIN, UNSPECIFIED SITE 11/17/2016 JULIO JOHNSON MD Ot 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 11/17/2016 JULIO JOHNSON MD Ot R10.9 UNSPECIFIED ABDOMINAL PAIN 11/17/2016 JULIO JOHNSON MD Ot 786.59 CHEST PAIN NEC 11/17/2016 BONI PETTY N PRESSED OR BLOWN GLASS WORKER Ot 780.4 DIZZINESS AND GIDDINESS 11/17/2016 BONI PETTY APRN Ot R42 DIZZINESS AND GIDDINESS 11/17/2016 FORD SIMEON Chris BORJAS Ot M23.261 DERANGEMENT OF LAT MENSC DUE TO OLD TEAR 11/17/2016 MINO GRANGER, FARHAD Swanson Ot M75.111 INCOMPLETE ROTATR-CUFF TEAR/RUPTR OF R S 11/17/2016 FARHAD HERZOG MD Ot M75.112 INCOMPLETE ROTATR-CUFF TEAR/RUPTR OF L S 11/18/2016 BONI PETTY APRN Ot M54.5 LOW BACK PAIN 11/18/2016 BONI PETTY APRN Ot M54.6 PAIN IN THORACIC SPINE 11/27/2016 Timothy Borges 883.0 OPEN WOUND OF FINGERS, WITHOUT MENTION OF COMPLICATION 11/27/2016 Timothy Borges S61.052A OPEN BITE OF LEFT THUMB WITHOUT DAMAGE TO NAIL, INIT ENCNTR 11/28/2016 Iban Amador 883.0 OPEN WOUND OF FINGERS, WITHOUT MENTION OF COMPLICATION 11/28/2016 Iban Amador A S61.052A OPEN BITE OF LEFT THUMB WITHOUT DAMAGE TO NAIL, INIT ENCNTR 11/28/2016 Iban Amador V05.9 NEED FOR PROPHYLACTIC VACCINATION AND INOCULATION AGAINST UNSPECIFIED SINGLE DISEASE 11/28/2016 Iban Amador Z23 ENCOUNTER FOR IMMUNIZATION 11/30/2016 Iban Amador 883.0 OPEN WOUND OF FINGERS, WITHOUT MENTION OF COMPLICATION 11/30/2016 Iban Amador A S61.052A OPEN BITE OF LEFT THUMB WITHOUT DAMAGE TO NAIL, INIT ENCNTR 11/30/2016 Iban Amador V05.9 NEED FOR PROPHYLACTIC VACCINATION AND INOCULATION AGAINST UNSPECIFIED SINGLE DISEASE 11/30/2016 Iban Amador Z23 ENCOUNTER FOR IMMUNIZATION 12/04/2016 Iban Amador A 883.0 OPEN WOUND OF FINGERS, WITHOUT MENTION OF COMPLICATION 12/04/2016 Iban Amador A S61.052A OPEN BITE OF LEFT THUMB WITHOUT DAMAGE TO NAIL, INIT ENCNTR 12/04/2016 Iban Amador V05.9 NEED FOR PROPHYLACTIC VACCINATION AND INOCULATION AGAINST UNSPECIFIED SINGLE DISEASE 12/04/2016 Iban Amador Z23 ENCOUNTER FOR IMMUNIZATION 12/10/2016 BONI PETTY APRN Ot M54.5 LOW BACK PAIN 12/10/2016 BONI PETTY PRESSED OR BLOWN GLASS WORKER Ot M54.6 PAIN IN THORACIC SPINE 12/11/2016 Iban Amador 883.0 OPEN WOUND OF FINGERS, WITHOUT MENTION OF COMPLICATION 12/11/2016 Iban Amador S61.052A OPEN BITE OF LEFT THUMB WITHOUT DAMAGE TO NAIL, INIT ENCNTR 12/11/2016 Iban Amador V01.5 CONTACT WITH OR EXPOSURE TO RABIES 12/11/2016 Iban Amador V05.9 NEED FOR PROPHYLACTIC VACCINATION AND INOCULATION AGAINST UNSPECIFIED SINGLE DISEASE 12/11/2016 Iban Amador Z20.3 CONTACT WITH AND (SUSPECTED) EXPOSURE TO RABIES 12/11/2016 Iban Amador Z23 ENCOUNTER FOR IMMUNIZATION 02/24/2018 Ot 717.0 OLD BUCKET TEAR MED MEN 02/24/2018 Ot 443.89 PERIPH VASCULAR DIS NEC 02/24/2018 Ot 756.3 RIB STERNUM ANOMAL NEC 02/24/2018 BONI PETTY PRESSED OR BLOWN GLASS WORKER Ot 608.9 MALE GENITAL DIS NOS 02/24/2018 BONI PETTY PRESSED OR BLOWN GLASS WORKER Ot 298.9 PSYCHOSIS NOS 02/24/2018 BONI PETTY PRESSED OR BLOWN GLASS WORKER Ot 789.00 ABDOMINAL PAIN, UNSPECIFIED SITE 02/24/2018 Ot 724.02 SPINAL STENOSIS, LUMBAR REG, W/OUT NEURO 02/24/2018 Ot M48.06 SPINAL STENOSIS, LUMBAR REGION 02/24/2018 VIDHI NOALND MD Ot 721.3 LUMBOSACRAL SPONDYLOSIS 02/24/2018 VIDHI NOLAND MD Ot 722.52 LUMB/LUMBOSAC DISC DEGEN 02/24/2018 VIDHI NOLAND MD Ot M47.817 SPONDYLS W/O MYELOPATHY OR RADICULOPATHY 02/24/2018 VIDHI NOLAND MD Ot V58.69 OTH MED,LT,CURRENT USE 02/24/2018 ALEX GRANGER, JULIO Perez Ot 733.42 ASEPTIC NECROSIS FEMUR 02/24/2018 JULIO JOHNSON MD Ot 789.00 ABDOMINAL PAIN, UNSPECIFIED SITE 02/24/2018 JULIO JOHNSON MD Ot 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 02/24/2018 JULIO JOHNSON MD Ot R10.9 UNSPECIFIED ABDOMINAL PAIN 02/24/2018 JULIO JOHNSON MD Ot 786.59 CHEST PAIN NEC 02/24/2018 BONI PETTY Jose Ramon PRESSED OR BLOWN GLASS WORKER Ot 780.4 DIZZINESS AND GIDDINESS 02/24/2018 MARCIA PETTYCRISTY Albright PRESSED OR BLOWN GLASS WORKER Ot R42 DIZZINESS AND GIDDINESS 02/24/2018 SIMEON FORD Ot M23.261 DERANGEMENT OF LAT MENSC DUE TO OLD TEAR 02/24/2018 MINO GRANGER, FARHAD Swanson Ot M75.111 INCOMPLETE ROTATR-CUFF TEAR/RUPTR OF R S 02/24/2018 FARHAD HERZOG MD Ot M75.112 INCOMPLETE ROTATR-CUFF TEAR/RUPTR OF L S 02/24/2018 PETTYBONI Jose Ramon PRESSED OR BLOWN GLASS WORKER Ot M54.5 LOW BACK PAIN 02/24/2018 PETTYMARCIACRISTY Albright PRESSED OR BLOWN GLASS WORKER Ot M54.6 PAIN IN THORACIC SPINE 02/24/2018 Ot 717.0 OLD BUCKET TEAR MED MEN 02/24/2018 Ot 443.89 PERIPH VASCULAR DIS NEC 02/24/2018 Ot 756.3 RIB STERNUM ANOMAL NEC 02/24/2018 JOVANNYMARCIACRISTY Albright PRESSED OR BLOWN GLASS WORKER Ot 608.9 MALE GENITAL DIS NOS 02/24/2018 BONI PETTY Jose Ramon PRESSED OR BLOWN GLASS WORKER Ot 298.9 PSYCHOSIS NOS 02/24/2018 MARCIA PETTYCRISTY Albright PRESSED OR BLOWN GLASS WORKER Ot 789.00 ABDOMINAL PAIN, UNSPECIFIED SITE 02/24/2018 Ot 724.02 SPINAL STENOSIS, LUMBAR REG, W/OUT NEURO 02/24/2018 Ot M48.06 SPINAL STENOSIS, LUMBAR REGION 02/24/2018 VIDHI NOLAND MD Ot 721.3 LUMBOSACRAL SPONDYLOSIS 02/24/2018 VIDHI NOLAND MD Ot 722.52 LUMB/LUMBOSAC DISC DEGEN 02/24/2018 VIDHI NOLAND MD Ot M47.817 SPONDYLS W/O MYELOPATHY OR RADICULOPATHY 02/24/2018 VIDHI NOLAND MD Ot V58.69 OTH MED,LT,CURRENT USE 02/24/2018 JULIO JOHNSON MD Ot 733.42 ASEPTIC NECROSIS FEMUR 02/24/2018 JULIO JOHNSON MD Ot 789.00 ABDOMINAL PAIN, UNSPECIFIED SITE 02/24/2018 JULIO JOHNSON MD Ot 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 02/24/2018 JULIO JOHNSON MD Ot R10.9 UNSPECIFIED ABDOMINAL PAIN 02/24/2018 ALEX RGANGER, JULIO Perez Ot 786.59 CHEST PAIN NEC 02/24/2018 BONI PETTY APRN Ot 780.4 DIZZINESS AND GIDDINESS 02/24/2018 BONI PETTY APRN Ot R42 DIZZINESS AND GIDDINESS 02/24/2018 SIMEON FORD Ot M23.261 DERANGEMENT OF LAT MENSC DUE TO OLD TEAR 02/24/2018 MINO GRANGER, FARHAD Swanson Ot M75.111 INCOMPLETE ROTATR-CUFF TEAR/RUPTR OF R S 02/24/2018 FARHAD HERZOG MD Ot M75.112 INCOMPLETE ROTATR-CUFF TEAR/RUPTR OF L S 02/24/2018 BONI PETTY APRN Ot M54.5 LOW BACK PAIN 02/24/2018 BONI PETTY APRN Ot M54.6 PAIN IN THORACIC SPINE 02/25/2018 JACINTO GRANGER, JITENDRA Stallings Ot K21.9 GASTRO-ESOPHAGEAL REFLUX DISEASE WITHOUT 02/25/2018 JITENDRA CASEY MD Ot Z01.818 ENCOUNTER FOR OTHER PREPROCEDURAL EXAMIN 02/25/2018 JITENDRA CASEY MD, Ot Z12.11 ENCOUNTER FOR SCREENING FOR MALIGNANT NE Procedures There is no data. Results There is no data. Encounters ACCT No. Visit Date/Time Discharge Status Pt. Type Provider Facility Loc./Unit Complaint [id number] 02/24/2018 05:37:00 02/24/2018 10:39:00 DIS Outpatient JITENDRA CASEY MD [facility] PREOP COLONOSCOPY/EGD [id number] 11/17/2016 09:44:00 11/17/2016 23:59:59 CLS Outpatient BONI PETTY APRN [facility] RAD LOW BACK PAIN, THORACIC BACK PAIN [id number] 03/27/2016 07:15:00 03/27/2016 12:55:00 DIS Outpatient [facility] PAINFUL SCAR LEFT UPPER EXTREMITY [id number] 03/24/2016 15:23:00 03/24/2016 16:00:00 DIS Outpatient KEV KLINE DO [facility] PREOP PAINFUL SCAR LEFT UPPER EXTREMITY [id number] 12/18/2015 10:01:00 12/18/2015 23:59:59 CLS Outpatient MINO GRANGER, FARHAD Swanson [facility] RAD RT AND LEFT SHOULDER RTC TEAR [id number] 08/07/2015 15:25:00 08/07/2015 23:59:59 CLS Outpatient SIMEON FORD [facility] RAD RT KNEE LATERAL MENISCUS TEAR [id number] 08/03/2015 08:42:00 08/03/2015 09:53:00 DIS Outpatient VIDHI NOLAND MD [facility] CARD INTREVETREBRAL DISC DISPLACEMENT LUMBAR REGION [id number] 05/03/2015 09:28:00 05/03/2015 23:59:59 CLS Outpatient BONI PETTY APRN [facility] RAD DIZZINESS [id number] 04/26/2015 15:54:00 04/26/2015 17:12:00 DIS Emergency NOEL DOYLE MD [facility] ER CP,DIZZINESS [id number] 04/13/2015 20:23:00 04/13/2015 21:50:00 DIS Emergency JULI DAWN MD [facility] ER POSSIBLE STROKE [id number] 01/23/2015 12:54:00 01/23/2015 23:59:59 CLS Outpatient JULIO JOHNSON MD [facility] RAD CHEST PAIN [id number] 01/18/2015 11:19:00 01/18/2015 23:59:59 CLS Outpatient JULIO JOHNSON MD [facility] RAD ABDOMINAL PAIN [id number] 01/15/2015 12:32:00 01/15/2015 23:59:59 CLS Outpatient VIDHI NOLNAD MD [facility] CARD DDD [id number] 09/21/2014 11:48:00 09/21/2014 23:59:59 CLS Outpatient BONI PETTY APRN [facility] RAD CONFUSION,DIZZINESS, ABD PAIN [id number] 09/12/2014 12:38:00 09/12/2014 15:10:00 DIS Emergency CARLINE LEWIS DO [facility] ER BODYACHES [id number] 08/16/2014 11:59:00 08/16/2014 23:59:59 CLS Outpatient BONI PETTY Jose Ramon PRESSED OR [employer] WORKER [facility] RAD PAIN IN TESTICLES [id number] 03/01/2018 10:30:00 PEN Preadmit JACINTO GRANGER, JITENDRA Stallings [facility] ENDO SCREENING/GERD [id number] 12/11/2014 08:16:00 Document Registration [id number] 09/12/2014 12:38:00 Document Registration [id number] 12/20/2012 15:43:00 Document Registration [id number] 11/06/2012 17:02:00 Document Registration [id number] 09/16/2012 13:17:00 Document Registration [id number] 10/30/2011 20:25:00 Document Registration [id number] 07/06/2017 14:00:00 07/06/2017 23:59:59 CLS Outpatient RIKY NICOLE [facility] [id number] 12/11/2016 09:17:00 12/11/2016 09:35:00 DIS Outpatient Iban Amador [id number] 12/04/2016 08:48:00 12/04/2016 09:00:00 DIS Outpatient Iban Amador [id number] 11/30/2016 08:34:00 11/30/2016 08:48:00 DIS Outpatient Iban Amador [id number] 11/28/2016 09:16:00 11/28/2016 10:20:00 DIS Outpatient Iban Amador [id number] 11/27/2016 09:16:00 11/27/2016 10:50:00 DIS Outpatient Katerina [facility] [id number] 11/27/2016 09:35:22 Document Registration [id number] 05/03/2015 09:29:17 ACT Document Registration
[2018-03-01] MEDS ORDERED: NS IV 500 ML 500 ML ONE (09:22)
[2018-03-01] MEDS ORDERED: NS IV 500 ML 500 ML IV PRN (09:22)
[2018-03-01] MEDS ORDERED: HURRICAINE EXT TUBE (BENZOCAINE) XX PRN (09:30)
[2018-03-01 09:41] VITALS: BP 126/93
[2018-03-01] MEDS ORDERED: fentaNYL INJECTION 100 MCG/2 ML AMP ONE ×2 (12:12→12:13)
[2018-03-01] MEDS ORDERED: HURRICAINE EXT TUBE (BENZOCAINE) ONE (12:13)
[2018-03-01] MEDS ORDERED: MIDAZOLAM 2 MG/2 ML (VERSED) VIAL ONE ×5 (12:13→12:50)
[2018-03-01] MEDS: fentaNYL INJECTION 100 MCG/2 ML AMP IVP PRN ×4 (12:39→12:55)
[2018-03-01] MEDS: MIDAZOLAM 2 MG/2 ML (VERSED) VIAL IVP PRN ×5 (12:42→12:53)
--- NOTE | 2018-03-01 13:10 | Discharge Inst-Simple/Standard ---
Discharge Inst-Standard Discharge Medications New, Converted or Re-Newed RX: Other Patient Instructions/Follow Up Plan of Care/Instructions/FU: Please have him increase Nexium to twice a day. Repeat colonoscopy in 5 years Activity as Tolerated: Yes Discharge Diet: No Restrictions JITENDRA CASEY MD March 01, 2018 1:10 pm
--- NOTE | 2018-03-01 13:12 | History & Physicial ---
History of Present Illness History of Present Illness Reason for visit/HPI To undergo an upper endoscopy regarding symptoms of reflux disease and for screening colonoscopy. Reports a positive family history of colon cancer in his father. Date of Admission 03/01/18 Date Seen by Provider: March 01, 2018 Time Seen by Provider: 11:00 I consulted on this patient on 03/01/18 13:10 Attending Physician Jitendra Yadav MD Admitting Physician Martin Fermin MD Consult Allergies and Home Medications Allergies Coded Allergies: codeine (Verified Allergy, Mild, NAUSEA, 02/24/18) Home Medications Ascorbate Calcium 500 Mg Tablet, 500 MG PO DAILY, (Reported) Baclofen 20 Mg Tablet, 20 MG PO BID PRN for MUSCLE SPASMS, (Reported) Cetirizine HCl 10 Mg Tab.chew, 10 MG PO DAILY, (Reported) Diazepam 10 Mg Tablet, 10 MG PO BID, (Reported) Esomeprazole Magnesium 20 Mg Capsule.dr, 20 MG PO DAILY, (Reported) Fluvoxamine Maleate 50 Mg Tablet, 50 MG PO DAILY, (Reported) Garlic 1 Each Tablet, 1 EACH PO DAILY, (Reported) Multivitamin 1 Each Tablet, 1 EACH PO DAILY, (Reported) Simvastatin 20 Mg Tablet, 20 MG PO HS, (Reported) Thiothixene 5 Mg Capsule, 5 MG PO DAILY, (Reported) Patient Home Medication List Home Medication List Reviewed: Yes Past Owlbsma-Mpbshe-Hettiv Hx Patient Social History Marrital Status: Employed/Student: unemployed Alcohol Use: Occasionally Uses Recreational Drug Use: No Smoking Status: Former Smoker Former Smoker, Quit: Aug 06, 1998 Recent Foreign Travel: No Contact w/other who traveled: No Recent Hopitalizations: No Recent Infectious Disease Expo: No Immunizations Up To Date Tetanus Booster (TDap): Less than 5yrs Date of Influenza Vaccine: Aug 03, 2017 Seasonal Allergies Seasonal Allergies: Yes Surgeries Yes Orthopedic Cardiovascular Yes High Cholesterol Reproductive System Hx Reproductive Disorders: No Sexually Transmitted Disease: No HIV/AIDS: No Gastrointestinal Yes Gastroesophageal Reflux, Chronic Diarrhea Musculoskeletal Yes Arthritis, Chronic Back Pain HEENT History of HEENT Disorders: Yes Loss of Vision: Bilateral Hearing Impairment: Hard of Hearing, Bilateral Hearing Aide Psychosocial Behavioral Health Disorders: Anxiety, Depression Blood Transfusions Adverse Reaction to a Blood Tr: No (N/A) Family Medical History Significant Family History: No Pertinent Family Hx Constitutional: no symptoms reported EENTM: no symptoms reported Respiratory: no symptoms reported Cardiovascular: no symptoms reported Gastrointestinal: see HPI Genitourinary: no symptoms reported Musculoskeletal: back pain, joint pain Skin: no symptoms reported Psychiatric/Neurological: Anxiety Physical Exam Vital Signs Vital Signs - First Documented 03/01/18 09:41 Temp 98.4 Pulse 58 Resp 16 B/P (MAP) 126/93 (104) Pulse Ox 98 O2 Delivery Room Air Capillary Refill : General Appearance: No Apparent Distress Neck: Normal Inspection Respiratory: Lungs Clear Cardiovascular: Regular Rate, Rhythm Gastrointestinal: Non Tender, Soft Rectal: Deferred Back: Normal Inspection Neurologic/Psychiatric: Alert, Oriented x3 Skin: Warm/Dry Assessment/Plan Assessment and Plan Gentleman with symptoms of reflux disease and in need of screening colonoscopy. Discussed in detail. Admission Diagnosis Admission Status: Other (Outpt Proc) JITENDRA YADAV MD March 01, 2018 1:12 pm
--- NOTE | 2018-03-01 13:12 | Conscious Sedation/ASA ---
Conscious Sedation Pre-Proced Time Reviewed: 11:00 ASA Class: 2 Airway Mallampati Classification: ([place] appropriate class) I. II. III, IV Lungs Heart ASA score ASA 1: a normal healthy patient ASA 2: a patient with a mild systemic disease (mid diabetes, controlled hypertension, obesity ASA 3: a patient with a severe systemic disease that limits activity (angina , COPD, prior Myocardial infarction) ASA 4: a patient with an incapacitating disease that is a constant threat to life (CHF, renal failure) ASA 5: a moribund patient not expected to survive 24 hrs. (ruptured aneurysm) ASA 6: a declared brain patient whose organs are being harvested. For emergent operations, add the letter E after the classification Grade 1 Sedation Plan: Discussed options with patient/fam Note The patient is an appropriate candidate to undergo the planned procedure, sedation, and anesthesia. The patient immediately re-assessed prior to indication. JITENDRA CASEY MD March 01, 2018 1:12 pm
[2018-03-01 13:35] VITALS: BP 110/92
[2018-03-01 14:05] VITALS: BP 113/87
[2018-03-01 14:15] VITALS: BP 113/87
--- NOTE | 2018-03-01 17:44 | OPERATIVE REPORT ---
DATE OF SERVICE: 03/01/2018 PROCEDURES: 1. Upper GI endoscopy with antral biopsy. 2. Screening colonoscopy. SURGEON: Jitendra Casey MD INDICATION FOR PROCEDURE: This gentleman came in for an endoscopic assessment of symptoms of gastroesophageal reflux, along with screening colonoscopy. Informed consent was obtained after reviewing the procedures in detail. DESCRIPTION OF THE PROCEDURES: UPPER ENDOSCOPY/ANTRAL BIOPSY: He was placed in left lateral decubitus position and his vital signs were monitored. Conscious sedation was achieved using Versed and fentanyl. The flexible gastroscope was introduced down the esophagus, passed the stomach, into the proximal duodenum. FINDINGS: ESOPHAGUS: A long hiatal hernia with grade II esophagitis. STOMACH: Multiple distal gastric ulcers and shallow erosions. Biopsy for H. pylori was obtained. DUODENUM: Changes of duodenitis were found. He tolerated the procedure well and was turned around in preparation for colonoscopy. IMPRESSION: Symptoms of reflux disease. Grade II esophagitis. Distal gastric ulcers. Helicobacter status pending. COLONOSCOPY: Digital rectal examination was unremarkable. The colonoscope was then introduced into the rectum and advanced all the way up to the cecum. The quality of bowel preparation was excellent. The scope was then withdrawn slowly and the mucosa examined in a systematic fashion. FINDINGS: Very few sigmoid diverticula. No polyps were found. He tolerated the procedures well and was taken back to the nursing area in a stable condition. IMPRESSION: Screening colonoscopy. No polyps. Recommend repeating in 5 years (family history). Job ID: [id number] DocumentID: [id number] Dictated Date: 03/01/2018 13:09:05 Auto Body Mechanic Date: 03/01/2018 17:42:59 Dictated By: JITENDRA CASEY MD MTDD
== END 2018-03-01 14:20 | disposition home or self-care (01) ==
LOC: ENDO 09:13
PROVIDERS: ATTEND Surgery
DX: Z12.11 Encounter for screening for malignant neoplasm of colon (principal); K20.9 Esophagitis, unspecified; K44.9 Diaphragmatic hernia without obstruction or gangrene; K25.9 Gastric ulcer, unspecified as acute or chronic, without hemorrhage or perforation; K31.9 Disease of stomach and duodenum, unspecified; K57.30 Diverticulosis of large intestine without perforation or abscess without bleeding; Z80.0 Family history of malignant neoplasm of digestive organs
CPT/HCPCS: 43239; G0105; 88305

== ENCOUNTER 2018-07-23 08:56 | Emergency (ER) | payer MEDICARE ==
[~2018-07-23] VITALS: Ht 172.7 cm; Wt 77.1 kg
--- NOTE | 2018-07-23 09:25 | ED Back Pain ---
General Chief Complaint: Back Problems Stated Complaint: BACK PAIN Nursing Triage Note: PT CO OF HX OF CHRONIC BACK PAIN AND HAVING FLARE UP CO OF LOWER BACK PAIN. PAIN RADIATES DOWN R LEG, HX SCIATICA Nursing Sepsis Screen: No Definite Risk Source of Information: Patient Exam Limitations: No Limitations History of Present Illness Date Seen by Provider: Jul 23, 2018 Time Seen by Provider: 09:25 Initial Comments The patient reports that he has had back pain for many years. He has had many contacts here mostly for pain. Examination of his imaging shows MRIs of upper and lower extremities and lumbar spine. The most recent lumbar MRI shows some arthritis but not excessive. No mention of spinal stenosis was made. He reports that he then went to the chiropractor but got no improvement. In fact he may have gotten worse as his symptoms had been that of low back pain and some radiation down the right leg. There is now apparently radiation down both legs consistent with sciatica. He reports that previously he had been treated djuq-npd-ljetfco naproxen 1 tablet twice a day but presently he is not even taking that. He also takes some sort of muscle relaxant. Timing/Duration: 2-3 Days (increased symptoms past several days) Radiation: Lower Legs (right and left) Allergies and Home Medications Allergies Coded Allergies: codeine (Verified Allergy, Mild, NAUSEA, 02/24/18) Home Medications Diazepam 10 Mg Tablet, 10 MG PO BID, (Reported) Esomeprazole Magnesium 20 Mg Capsule.dr, 20 MG PO DAILY, (Reported) Garlic 1 Each Tablet, 1 EACH PO DAILY, (Reported) Simvastatin 20 Mg Tablet, 20 MG PO HS, (Reported) Thiothixene 5 Mg Capsule, 5 MG PO DAILY, (Reported) Patient Home Medication List Home Medication List Reviewed: Yes Review of Systems Constitutional: see HPI EENTM: no symptoms reported Respiratory: no symptoms reported Cardiovascular: no symptoms reported Gastrointestinal: no symptoms reported Genitourinary: no symptoms reported Musculoskeletal: back pain, muscle stiffness, muscle cramps Skin: no symptoms reported Psychiatric/Neurological: No Symptoms Reported Past Gkswnpv-Gtakhp-Xngqbd Hx Patient Social History Alcohol Use: Denies Use Recreational Drug Use: No Smoking Status: Former Smoker Former Smoker, Quit: Aug 06, 1998 Recent Foreign Travel: No Contact w/Someone Who Travel: No Recent Infectious Disease Expo: No Recent Hopitalizations: No Physical Abuse: No Sexual Abuse: No Immunizations Up To Date Tetanus Booster (TDap): Less than 5yrs Date of Influenza Vaccine: Aug 03, 2017 Seasonal Allergies Seasonal Allergies: Yes Past Medical History Surgeries: Yes Orthopedic Respiratory: No Cardiac: Yes High Cholesterol Neurological: No Reproductive Disorders: No Sexually Transmitted Disease: No HIV/AIDS: No Gastrointestinal: Yes Gastroesophageal Reflux, Chronic Diarrhea Musculoskeletal: Yes Arthritis, Chronic Back Pain Endocrine: No HEENT: Yes Loss of Vision: Bilateral Hearing Impairment: Hard of Hearing, Bilateral Hearing Aide Cancer: No Psychosocial: Yes ("ANGER ISSUES") Anxiety, Depression Integumentary: No Blood Disorders: No Adverse Reaction/Blood Tranf: No (N/A) Family Medical History No Pertinent Family Hx Physical Exam Vital Signs Vital Signs - First Documented 07/23/18 09:00 Temp 97.1 Pulse 69 Resp 18 B/P (MAP) 142/102 (115) Capillary Refill : Less Than 3 Seconds Height, Weight, BMI Height: 5'8.00" Weight: 170lbs. 4.0oz. 77.742397up; 25.9 BMI Method:Stated General Appearance: Mild Distress HEENT: Normal ENT Inspection Neck: Full Range of Motion Cardiovascular: Regular Rate, Rhythm, No Edema, No Gallop, No JVD, No Murmur, Normal Peripheral Pulses Respiratory: Chest Non Tender, Lungs Clear, Normal Breath Sounds, No Accessory Muscle Use, No Respiratory Distress, Accessory Muscle Use Gastrointestinal: Normal Bowel Sounds, No Organomegaly, No Pulsatile Mass, Non Tender, Soft Moves very stiffly. He required assistance to sit upright from 45 reclining position. He evinced pain from the cervical spine to the coccyx. He reported that his problems had been greater in the right leg over time. He was able to straight leg lift the right about 10 inches off the gurney. He was able to raise the left leg to 60. Deep tendon reflexes were 0. Progress/Results/Core Measures Results/Orders My Orders Orders - SHAVON PRUETT MD Ketorolac Injection (Toradol Injection) (07/23/18 10:00) Methylprednisolone Sod Succ (Solu-Medrol (07/23/18 10:00) Medications Given in ED Current Medications Medications Dose Ordered Sig/Marian Route Start Time Stop Time Status Last Admin Dose Admin Ketorolac Tromethamine 60 mg ONCE ONCE IM 07/23/18 10:00 07/23/18 10:01 DC 07/23/18 10:00 60 MG Methylprednisolone Sodium Succinate 125 mg ONCE ONCE IM 07/23/18 10:00 07/23/18 10:01 DC 07/23/18 10:00 125 MG Vital Signs/I&O 07/23/18 09:00 Temp 97.1 Pulse 69 Resp 18 B/P (MAP) 142/102 (115) Blood Pressure Mean: 115 Departure Impression Primary Impression: low back pain/sciatica Disposition: HOME, SELF-CARE Condition: Stable/Unchanged Departure-Patient Inst. Decision time for Depature: 10:39 Referrals: JULIO JOHNSON MD (PCP/Family) Primary Care Physician Patient Instructions: MANAGING YOUR CHRONIC PAIN Add. Discharge Instructions: All discharge instructions reviewed with patient and/or family. Voiced understanding. Make an appointment to see your provider early next week. Medications as provided. Scripts Tramadol HCl (Tramadol HCl) 50 Mg Tablet 50 MG PO 4 times a day, #20 TAB Prov: SHAVON PRUETT MD 07/23/18 Prednisone (Prednisone) 20 Mg Tab 20 MG PO DAILY, #12 TAB 3 tabs each a.m. Prov: SHAVON PRUETT MD 07/23/18 SHAVON PRUETT MD Jul 23, 2018 09:25
[2018-07-23] MEDS ORDERED: KETOROLAC 60 MG/2 ML VIAL IM ONE (10:00)
[2018-07-23] MEDS ORDERED: methylPREDNISolone 125 MG (Solu-MEDROL) VIAL IM ONE (10:00)
[2018-07-23] MEDS ORDERED: PRD20T PO (10:42)
[2018-07-23] MEDS ORDERED: TRAM50TA2 PO (10:43)
[2018-07-23 11:35] VITALS: BP 136/88
== END 2018-07-23 11:05 | disposition home or self-care (01) ==
LOC: EDUNIT# 08:56 → ER 08:57
DX: M54.41 Lumbago with sciatica, right side (principal); E78.00 Pure hypercholesterolemia, unspecified; K21.9 Gastro-esophageal reflux disease without esophagitis; F41.9 Anxiety disorder, unspecified; F32.9 Major depressive disorder, single episode, unspecified; Z87.19 Personal history of other diseases of the digestive system; Z88.5 Allergy status to narcotic agent; Z87.891 Personal history of nicotine dependence
CPT/HCPCS: 99284

== ENCOUNTER → 2018-08-09 | Outpatient (CLI) | payer MEDICARE ==
[~2018-08-09] MED LIST changes: +PRD20T PO; +TRAM50TA2 PO
--- NOTE | 2018-08-09 13:22 | Diagnostic Imaging Report ---
EXAM: CERVICAL SPINE 3 VIEWS OR LESS INDICATION: LOW BACK PAIN, CERVICAL PAIN, THORACIC PAIN, LEFT LEG WEAKNESS NUMBNESS COMPARISON: None. FINDINGS: Normal alignment. Vertebral body heights are preserved. Mild degenerative endplate changes. No fractures. Normal prevertebral soft tissues. IMPRESSION: Mild spondylotic changes. No acute radiographic findings in the cervical spine. Dictated by: Dictated on workstation # [id number]
--- NOTE | 2018-08-09 13:36 | Diagnostic Imaging Report ---
EXAM: LUMBAR SPINE - 2-3 VIEWS INDICATION: LOW BACK PAIN, ERVICAL PAIN, THORACIC PAIN, LEFT LEG WEAKNESS NUMBNE COMPARISON: Lumbar spine radiographs from 11/17/2016. FINDINGS: There are five lumbar-type vertebral bodies. There is stable grade 1 anterolisthesis of L5 on S1 and probable bilateral pars defects of L5. Moderate diffuse degenerative endplate changes are similar to the prior exam. No acute fractures. Vertebral body heights are preserved. Mild degenerative changes in the sacroiliac joints. Nonspecific bowel gas pattern. IMPRESSION: 1. Stable spondylotic changes in the lumbar spine. 2. Stable grade 1 anterolisthesis of L5 on S1 and bilateral probable pars defects of L5. 3. No acute radiographic findings. Dictated by: Dictated on workstation # [id number]
--- NOTE | 2018-08-09 13:38 | Diagnostic Imaging Report ---
EXAM: T-SPINE 3V-AP, LAT, SWIMMER'S. INDICATION: LOW BACK PAIN, CERVICAL PAIN, THORACIC PAIN, LEFT LEG WEAKNESS AND NUMBNESS. COMPARISON: Thoracic spine radiographs 11/17/2016. FINDINGS: Mild degenerative endplate changes in the thoracic spine. Vertebral body heights are preserved. No fractures. Normal alignment. No suspicious osteoblastic or lytic lesions. Calcified granuloma in the right hilum. IMPRESSION: Mild spondylotic changes in the thoracic spine. No acute radiographic findings. Dictated by: Dictated on workstation # [id number]
== END ==
LOC: RAD 10:08
PROVIDERS: ATTEND Nurse Practitioner Family
DX: M47.812 Spondylosis without myelopathy or radiculopathy, cervical region (principal); M47.816 Spondylosis without myelopathy or radiculopathy, lumbar region; M43.17 Spondylolisthesis, lumbosacral region; M47.814 Spondylosis without myelopathy or radiculopathy, thoracic region
CPT/HCPCS: 72040; 72072; 72100

== ENCOUNTER → 2018-08-18 | Outpatient (CLI) | payer MEDICARE ==
--- NOTE | 2018-08-18 11:16 | Diagnostic Imaging Report ---
PROCEDURE: MRI lumbar spine. TECHNIQUE: Multiplanar, multisequence MRI of the lumbar spine was performed without contrast. INDICATION: Chronic low back pain and left leg numbness and tingling for one week. COMPARISON: No prior studies are available for comparison. FINDINGS: Curvature of lumbar spine is normal. There is grade 1 spondylolisthesis of L5 on S1 with bilateral pars defects at this level. Vertebral body heights are maintained. No acute compression fracture is seen. Benign hemangiolipomas within T12 and L2 vertebral bodies are noted. There is degenerative disc disease at L5-S1 level with disc space narrowing and desiccation as well as marginal osteophyte formation. Conus is unremarkable at the T12-L1 level. T12-L1: Central canal and neural foramina are widely patent. L1-2: Central canal is widely patent. The neural foramina are widely patent. There is some degenerative spurring anteriorly. L2-3: There is some mild ligamentous thickening and facet changes. The central canal remains widely patent. There is mild to moderate left neural foraminal narrowing at this level due to left posterolateral broad-based disc/osteophyte complex. L3-4: Ligamentous thickening and facet changes are present. Central canal is widely patent. Mild to moderate left neural foraminal narrowing is seen due to left posterolateral broad-based disc/osteophyte complex. L4-5: Central canal is widely patent. The neural foramina are patent. L5-S1: Central canal is patent. There is mild bilateral neural foraminal narrowing due to the grade 1 spondylolisthesis. Paraspinous tissues are unremarkable. IMPRESSION: 1. Grade 1 L5-S1 spondylolisthesis with bilateral pars defects. There is mild bilateral neural foraminal narrowing at this level as well. There is also additional multilevel neural foraminal narrowing described level by level above. No central canal stenosis is identified. Dictated by: Dictated on workstation # [id number]
== END ==
LOC: RAD 10:00
PROVIDERS: ATTEND Nurse Practitioner Family
DX: M51.37 Other intervertebral disc degeneration, lumbosacral region (principal); M43.17 Spondylolisthesis, lumbosacral region; M99.73 Connective tissue and disc stenosis of intervertebral foramina of lumbar region; D17.79 Benign lipomatous neoplasm of other sites
CPT/HCPCS: 72148

== ENCOUNTER 2018-12-18 19:53 | Emergency (ER) | payer MEDICARE ==
[~2018-12-18] VITALS: Ht 172.7 cm; Wt 74.8 kg
[2018-12-18] MEDS ORDERED: predniSONE 20 MG TAB PO ONE (20:00)
[2018-12-18] MEDS ORDERED: RX-HYDROCODONE/APAP 5/325 MG #4 TAB PK PO PRN (20:00)
--- NOTE | 2018-12-18 20:04 | ED Back Pain ---
General Chief Complaint: Back Problems Stated Complaint: SEVERE LEG PAIN Source of Information: Patient Exam Limitations: No Limitations History of Present Illness Date Seen by Provider: Dec 18, 2018 Time Seen by Provider: 20:00 Initial Comments To ER per EMS with reports of severe midline low back pain that radiates down both legs. This is been an ongoing problem for 18 years since falling out of a tree stand from about 20 feet landing on both feet. The pain radiates down both legs. He states that he has not had any numbness of his genitals, no loss of bowel or bladder control. No fevers or chills. No history of cancer and no history of IV drug use. EMS states that upon arrival he was writhing in pain rating it at 10 out of 10. They started an IV and administered 100 g of fentanyl. He now is alert and his pain at 1. He had an MRI of the lumbar spine done here in July 2018. Location: Lumbar Spine Timing/Duration: Constant Severity: Moderate Pain/Injury Location: Back Associated Symptoms: No muscle spasms, No fever, No numbness in legs/feet, No tingling in legs/feet; lower back pain; No loss of bladder control, No loss of bowel control Allergies and Home Medications Allergies Coded Allergies: codeine (Verified Allergy, Mild, NAUSEA, 02/24/18) Home Medications Diazepam 10 Mg Tablet, 10 MG PO BID, (Reported) Esomeprazole Magnesium 20 Mg Capsule.dr, 20 MG PO DAILY, (Reported) Garlic 1 Each Tablet, 1 EACH PO DAILY, (Reported) Prednisone 20 Mg Tab, 20 MG PO DAILY 3 tabs each a.m. Prescribed by: SHAVON PRUETT on 07/23/18 1042 Simvastatin 20 Mg Tablet, 20 MG PO HS, (Reported) Thiothixene 5 Mg Capsule, 5 MG PO DAILY, (Reported) Tramadol HCl 50 Mg Tablet, 50 MG PO 4 times a day Prescribed by: SHAVON PRUETT on 07/23/18 1043 Patient Home Medication List Home Medication List Reviewed: Yes Review of Systems Constitutional: see HPI; No chills EENTM: see HPI Respiratory: no symptoms reported Cardiovascular: no symptoms reported Musculoskeletal: see HPI, back pain Skin: no symptoms reported Past Ptjhhdm-Hztehe-Jejwni Hx Patient Social History Former Smoker, Quit: Aug 06, 1998 Recent Hopitalizations: No Immunizations Up To Date Tetanus Booster (TDap): Less than 5yrs Date of Influenza Vaccine: Aug 03, 2017 Seasonal Allergies Seasonal Allergies: Yes Past Medical History Surgeries: Yes Orthopedic Respiratory: No Cardiac: Yes High Cholesterol Neurological: No Reproductive Disorders: No Sexually Transmitted Disease: No HIV/AIDS: No Gastrointestinal: Yes Gastroesophageal Reflux, Chronic Diarrhea Musculoskeletal: Yes Arthritis, Chronic Back Pain Endocrine: No HEENT: Yes Loss of Vision: Bilateral Hearing Impairment: Hard of Hearing, Bilateral Hearing Aide Cancer: No Psychosocial: Yes ("ANGER ISSUES") Anxiety, Depression Integumentary: No Blood Disorders: No Adverse Reaction/Blood Tranf: No (N/A) Family Medical History No Pertinent Family Hx Physical Exam Vital Signs Vital Signs - First Documented 12/18/18 19:54 Temp 98.4 Pulse 68 Resp 18 B/P (MAP) 141/91 (108) Pulse Ox 99 O2 Delivery Room Air Capillary Refill : Height, Weight, BMI Height: 5'8.00" Weight: 170lbs. 4.0oz. 77.745900ii; 25.9 BMI Method:Stated General Appearance: No Apparent Distress, WD/WN HEENT: PERRL/EOMI, Other (pinpoint pupils, alert, very talkative) Neck: Full Range of Motion, Normal Inspection Respiratory: No Accessory Muscle Use, No Respiratory Distress Gastrointestinal: Normal Bowel Sounds, Non Tender, Soft Back: Normal Inspection Extremity: Normal Capillary Refill, Normal Inspection, Other (plantar flexion and dorsiflexion of feet strength is 3 out of 5 bilateral. Posterior tibial pulses are +2 bilateral.) Neurologic/Psychiatric: Alert, Oriented x3 Skin: Normal Color, Warm/Dry Progress/Results/Core Measures Results/Orders Lab Results Laboratory Tests Test 12/18/18 20:30 Range/Units White Blood Count 10.5 4.3-11.0 10^3/uL Red Blood Count 4.51 4.35-5.85 10^6/uL Hemoglobin 15.5 13.3-17.7 G/DL Hematocrit 42 40-54 % Mean Corpuscular Volume 94 80-99 FL Mean Corpuscular Hemoglobin 34 25-34 PG Mean Corpuscular Hemoglobin Concent 37 H 32-36 G/DL Red Cell Distribution Width 12.0 10.0-14.5 % Platelet Count 227 130-400 10^3/uL Mean Platelet Volume 10.6 H 7.4-10.4 FL Neutrophils (%) (Auto) 45 42-75 % Lymphocytes (%) (Auto) 32 12-44 % Monocytes (%) (Auto) 18 H 0-12 % Eosinophils (%) (Auto) 5 0-10 % Basophils (%) (Auto) 1 0-10 % Neutrophils # (Auto) 4.8 1.8-7.8 X 10^3 Lymphocytes # (Auto) 3.3 1.0-4.0 X 10^3 Monocytes # (Auto) 1.9 H 0.0-1.0 X 10^3 Eosinophils # (Auto) 0.5 H 0.0-0.3 10^3/uL Basophils # (Auto) 0.1 0.0-0.1 10^3/uL Urine Color YELLOW Urine Clarity CLEAR Urine pH 8 5-9 Urine Specific [place] 1.010 L 1.016-1.022 Urine Protein NEGATIVE NEGATIVE Urine Glucose (UA) NEGATIVE NEGATIVE Urine Ketones NEGATIVE NEGATIVE Urine Nitrite NEGATIVE NEGATIVE Urine Bilirubin NEGATIVE NEGATIVE Urine Urobilinogen NORMAL NORMAL MG/DL Urine Leukocyte Esterase NEGATIVE NEGATIVE Urine RBC (Auto) NEGATIVE NEGATIVE Urine RBC NONE /HPF Urine WBC NONE /HPF Urine Crystals NONE /LPF Urine Bacteria NEGATIVE /HPF Urine Casts NONE /LPF Urine Mucus NEGATIVE /LPF Urine Culture Indicated NO Sodium Level 138 135-145 MMOL/L Potassium Level 3.9 3.6-5.0 MMOL/L Chloride Level 103 98-107 MMOL/L Carbon Dioxide Level 23 21-32 MMOL/L Anion Gap 12 5-14 MMOL/L Blood Urea Nitrogen 17 7-18 MG/DL Creatinine 0.93 0.60-1.30 MG/DL Estimat Glomerular Filtration Rate > 60 BUN/Creatinine Ratio 18 Glucose Level 103 70-105 MG/DL Calcium Level 10.0 8.5-10.1 MG/DL Urine Opiates Screen NEGATIVE NEGATIVE Urine Oxycodone Screen NEGATIVE NEGATIVE Urine Methadone Screen NEGATIVE NEGATIVE Urine Propoxyphene Screen NEGATIVE NEGATIVE Urine Barbiturates Screen NEGATIVE NEGATIVE Ur Tricyclic Antidepressants Screen NEGATIVE NEGATIVE Urine Phencyclidine Screen NEGATIVE NEGATIVE Urine Amphetamines Screen NEGATIVE NEGATIVE Urine Methamphetamines Screen NEGATIVE NEGATIVE Urine Benzodiazepines Screen POSITIVE H NEGATIVE Urine Cocaine Screen NEGATIVE NEGATIVE Urine Cannabinoids Screen NEGATIVE NEGATIVE Serum Alcohol < 10 <10 MG/DL My Orders Orders - CALEB LITTLEJOHN APRN Prednisone Tablet (Deltasone Tablet) (12/18/18 20:00) Rx-Hydrocodone/Apap 5-325 Mg (Rx-Vicodin (12/18/18 20:00) Ketamine Injection (Ketalar Injection) (12/18/18 20:15) Cbc With Automated Diff (12/18/18 20:16) Alcohol (12/18/18 20:16) Basic Metabolic Panel (12/18/18 20:16) Ua Culture If Indicated (12/18/18 20:21) Drug Screen Stat (Urine) (12/18/18 20:21) Ns (Ivpb) (Sodium Chloride 0.9% Ivpb Bag (12/18/18 20:44) Midazolam Injection (Versed Injection) (12/18/18 21:30) Medications Given in ED Current Medications Medications Dose Ordered Sig/Marian Route Start Time Stop Time Status Last Admin Dose Admin Acetaminophen/ Hydrocodone Bitart 1 ea Q4H PRN PO 12/18/18 20:00 12/18/18 21:54 1 EA Ketamine HCl 22 mg ONCE ONCE IV 12/18/18 20:15 12/18/18 20:16 DC 12/18/18 21:02 22 MG Midazolam HCl 2 mg ONCE ONCE IV 12/18/18 21:30 12/18/18 21:31 DC 12/18/18 21:28 2 MG Prednisone 40 mg ONCE ONCE PO 12/18/18 20:00 12/18/18 20:01 DC 12/18/18 20:09 40 MG Sodium Chloride 100 ml @ ud STK-MED ONCE .ROUTE 12/18/18 20:44 12/18/18 20:46 DC 12/18/18 21:02 100 MLS/HR Vital Signs/I&O 12/18/18 12/18/18 19:54 21:51 Temp 98.4 Pulse 68 58 Resp 18 14 B/P (MAP) 141/91 (108) 141/91 (108) Pulse Ox 99 100 O2 Delivery Room Air Room Air Departure Communication (Admissions) 2022-shortly after arriving he reports that the fentanyl seems to have worn off and his pain is not excruciating again. Ketamine ordered at 0.3 mg/kg IV in 100 mL bag of normal saline to be given over 20 minutes. 2137- patient became a bit agitated a bit ago after stopping the ketamine injection. Versed 2 mg was given. Improvement in symptoms. We'll watch him for a few more minutes and if he perks up will discharge to home. 2200-At the time of discharge he is able to recall where he lives, he recalls my name, he recalls his own name, he is able to place his medication list back into his wallet without assistance and transfer from the bed to the wheelchair without assistance. He was then assisted into his friend's car and will be driving him home in [place]. Impression Primary Impression: Lumbar radiculopathy Disposition: HOME, SELF-CARE Condition: Stable Departure-Patient Inst. Decision time for Depature: 20:04 Referrals: JULIO JOHNSON MD (PCP/Family) Primary Care Physician Patient Instructions: Radiculopathy (DC) Add. Discharge Instructions: 1. Call Dr. Johnson on Thursday to make an appointment to be seen for follow-up 2. Return to ER for any concerns 3. All discharge instructions reviewed with patient and/or family. Voiced understanding. CALEB LITTLEJOHN APRN Dec 18, 2018 20:04
--- NOTE | 2018-12-18 20:13 | NUR ---
Pt hollering out in pain and thrashing in bed. PBates notified and to room to speak w/ patient.
[2018-12-18] MEDS ORDERED: KETAMINE HCL 100 MG/ML 5 ML VIAL IV ONE (20:15)
--- NOTE | 2018-12-18 20:20 | NUR ---
Pt standing at side of bed using urinal x1 assist
[2018-12-18 20:37] LABS: BILIRUBIN,URINE NEGATIVE (NEGATIVE); CLARITY,URINE CLEAR; COLOR,URINE YELLOW; GLUCOSE, URINE (UA) NEGATIVE (NEGATIVE); KETONES,URINE NEGATIVE (NEGATIVE); LEUKOCYTE ESTERASE ,URINE NEGATIVE (NEGATIVE); NITRITE,URINE NEGATIVE (NEGATIVE); PH,URINE 8 (5-9); PROTEIN,URINE NEGATIVE (NEGATIVE); UROBILINOGEN,URINE NORMAL (NORMAL)
[2018-12-18 20:43] LABS: BASOPHILS # (AUTO) 0.1 10^3/uL (0.0-0.1); BASOPHILS % (AUTO) 1 % (0-10); EOSINOPHILS # (AUTO) 0.5 10^3/uL (0.0-0.3); EOSINOPHILS % (AUTO) 5 % (0-10); HEMATOCRIT 42 % (40-54); HEMOGLOBIN 15.5 G/DL (13.3-17.7); LYMPHOCYTES # (AUTO) 3.3 X 10^3 (1.0-4.0); LYMPHOCYTES % (AUTO) 32 % (12-44); MEAN CORPUSCULAR HEMOGLOBIN 34 PG (25-34); MEAN CORPUSCULAR HGB CONC 37 G/DL (32-36); MEAN CORPUSCULAR VOLUME 94 FL (80-99); MEAN PLATELET VOLUME 10.6 FL (7.4-10.4); MONOCYTES # (AUTO) 1.9 X 10^3 (0.0-1.0); MONOCYTES % (AUTO) 18 % (0-12); NEUTROPHILS # (AUTO) 4.8 X 10^3 (1.8-7.8); NEUTROPHILS % (AUTO) 45 % (42-75); PLATELET COUNT 227 10^3/uL (130-400); WHITE BLOOD COUNT 10.5 10^3/uL (4.3-11.0)
[2018-12-18] MEDS ORDERED: NS (IVPB) 100 ML ONE (20:44)
[2018-12-18 20:55] LABS: BUN/CREATININE RATIO 18; CARBON DIOXIDE 23 MMOL/L (21-32); CHLORIDE 103 MMOL/L (98-107); CREATININE SERUM 0.93 MG/DL (0.60-1.30); GFR ESTIMATED > 60; GLUCOSE 103 MG/DL (70-105); POTASSIUM 3.9 MMOL/L (3.6-5.0); SODIUM 138 MMOL/L (135-145)
[2018-12-18 20:57] LABS: BACTERIA,URINE NEGATIVE /HPF
[2018-12-18 21:00] LABS: AMPHETAMINE SCREEN, URINE NEGATIVE (NEGATIVE); BARBITURATE SCREEN URINE NEGATIVE (NEGATIVE); BENZODIAZEPINES SCREEN URINE POSITIVE (NEGATIVE); CANNABINOID SCREEN, URINE NEGATIVE (NEGATIVE); COCAINE SCREEN URINE NEGATIVE (NEGATIVE); METHADONE STAT NEGATIVE (NEGATIVE); METHAMPHETAMINE SCREEN URINE S NEGATIVE (NEGATIVE); OPIATE SCREEN URINE NEGATIVE (NEGATIVE); OXYCODONE STAT NEGATIVE (NEGATIVE); PROPOXYPHENE STAT NEGATIVE (NEGATIVE); TRICYCLIC ANTIDEPRESSANTS SCRE NEGATIVE (NEGATIVE)
[2018-12-18] MEDS ORDERED: MIDAZOLAM 2 MG/2 ML (VERSED) VIAL ONE (21:26)
[2018-12-18] MEDS ORDERED: MIDAZOLAM 2 MG/2 ML (VERSED) VIAL IV ONE (21:30)
[2018-12-18 21:51] VITALS: BP 141/91
== END 2018-12-18 21:54 | disposition home or self-care (01) ==
LOC: EDUNIT# 19:53 → ER 19:54
DX: M54.16 Radiculopathy, lumbar region (principal); E78.00 Pure hypercholesterolemia, unspecified; K21.9 Gastro-esophageal reflux disease without esophagitis; F41.9 Anxiety disorder, unspecified; F32.9 Major depressive disorder, single episode, unspecified; Z87.19 Personal history of other diseases of the digestive system; Z88.5 Allergy status to narcotic agent; Z79.52 Long term (current) use of systemic steroids; Z87.891 Personal history of nicotine dependence
CPT/HCPCS: 36415; 80048; 80306; 80320; 81000; 85025

== ENCOUNTER → 2018-12-24 | Outpatient (CLI) | payer MEDICARE ==
[~2018-12-24] MED LIST changes: +CEPH-507 PO; +POLY119P5 PO
--- NOTE | 2018-12-24 11:03 | Diagnostic Imaging Report ---
INDICATION: Chronic back pain with pain in bilateral lower extremities. History of previous 40-45 foot fall 20 years ago. TECHNIQUE: Lateral flexion and extension views lumbar spine, 9:45 AM CORRELATION STUDY: 08/09/2018 FINDINGS: There is grade 1-2 spondylolisthesis of L5 on S1 appearing to be attributed to bilateral pars articularis defect. There does appear to be some motion suggested with flexion and extension. With the extension, approximately 8 mm of offset. With extension, approximately 12 mm offset. The remainder of the lumbar spinal alignment appears relatively anatomic. Lumbar vertebral body heights are maintained. Mild multiple disc space narrowing most pronounced at the L5-S1 level. 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 The does appear to be some motion of the L5 vertebral body relation at S1 with flexion and extension. Associated degenerative disc disease. Dictated by: Dictated on workstation # [id number]
== END ==
LOC: RAD 09:29
PROVIDERS: ATTEND Nurse Practitioner Family
DX: M51.36 Other intervertebral disc degeneration, lumbar region (principal); M43.17 Spondylolisthesis, lumbosacral region
CPT/HCPCS: 72100

== ENCOUNTER 2018-12-26 09:59 | Emergency (ER) | payer MEDICARE ==
[~2018-12-26] VITALS: Ht 172.7 cm; Wt 74.8 kg
[~2018-12-26 09:59] MED LIST changes: -CEPH-507 PO; -POLY119P5 PO
--- OUTSIDE RECORDS SUMMARY | 2018-12-26 10:10 | XMS REPORT ---
Author Author DARSHAN KYLEE Fonseca [facility] Address Unknown Care Team Providers Care Stacker Driver Name Role Phone KYLEE SEXTON Unavailable PROBLEMS Type Condition ICD9-CM Code [id number] Code Onset Dates Condition Status SNOMED Code Problem Anxiety state, unspecified F41.1 Active 182963878 Problem Affective disorder 296.90 Active 31837980 ALLERGIES No Known Allergies ENCOUNTERS Encounter Location Date Diagnosis [facility] [address] [place] [address] [phone] Jul, Dental examination Z01.20 and Caries K02.9 [facility] [address] [place] [address] [id number] Jun, Dental examination Z01.20 [facility] [address] [place] [address] [id number] 14 Jun, 2018 Dental examination Z01.20 [facility] [address] [place] [address] [id number] 13 Jun, 2018 Caries of dentin K02.62 [facility] [id number] [place] [address] [phone] Mar, Dental examination Z01.20 [facility] [address] [id number] [place] [address] [id number] Jun, Dental examination Z01.20 [facility] [id number] [place] [address] [id number] May, Dental examination Z01.20 and Periapical abscess K04.7 [facility] [id number] [place] [address] [phone] Dec, Dental examination Z01.20 [facility] [address] [id number] [place] [address] [phone] Nov, Dental caries K02.9 [facility] [address] [facility] [id number] [phone] Nov, Dental examination Z01.20 [facility] [address] [address] Nov, Anxiety state, unspecified F41.1 [facility] [address] [id number] [place] [address] Oct [facility] [address] [place] [phone] Oct, Anxiety state, unspecified F41.1 [facility] [address] [place] [address] [id number] Sep, Dental examination Z01.20 [facility] [id number] [place] [address] [phone] Mar, Dental examination Z01.20 [facility] [id number] [place] [address] [id number] Oct, Encounter for dental examination Z01.20 [facility] [id number] [place] [address] [phone] Sep, Encounter for dental examination Z01.20 [facility] [address] [place] [address] [phone] Aug, Encounter for dental examination Z01.20 [facility] [address] [place] [address] [id number] Jul, Dental examination Z01.20 [facility] [id number] [address] Jun, Affective disorder 296.90 and [place] II diagnosis deferred 799.9 IMMUNIZATIONS No Known Immunizations SOCIAL HISTORY Never Assessed REASON FOR VISIT FILLING #20-selbrader PLAN OF CARE Activity Details Follow Up prn Reason:dwight/hygiene VITAL SIGNS Blood pressure systolic 132 mmHg 2018-08-11 Blood pressure diastolic 90 mmHg 2018-08-11 MEDICATIONS Medication Instructions Dosage Frequency Start Date End Date Duration Status Quetiapine Fumarate 50 MG Orally Once a day 1 tablet at bedtime 24h Not-Taking Hydrocodone-Acetaminophen 10-325 MG Orally every 6 hrs 1 tablet as needed 6h Not-Taking Bactrim DS 800-160 MG Orally Once a day 1 tablet 24h Not-Taking Restora Not-Taking Thiothixene 5 MG Orally Twice a day 1 capsule 12h Active [place] 10-325 MG Orally every 6 hrs 1 tablet as needed 6h Not- Taking Fluticasone Propionate (Inhal) Active Proctozone-HC 2.5 % Rectal Twice a day 1 application to affected area 12h Not-Taking Oxycodone-Acetaminophen Active Omeprazole 40 MG Orally Once a day 1 capsule 24h Active Pantoprazole Sodium Active Flucelvax Quadrivalent Active Baclofen Active Ciprofloxacin HCl Active Diazepam 10 MG Orally Twice a day 1 tablet as needed 12h Active Trazodone HCl Active Cefadroxil 500 MG/5ML Not-Taking Vitamin D Not-Taking MethylPREDNISolone Active Valium 5 MG Not-Taking Fluvoxamine Maleate 25 MG Orally Once a day 1 tablet at bedtime 24h Not-Taking Permethrin Active RESULTS No Results PROCEDURES Procedure Date Ordered Result Body Site RESIN COMPOS - 4/MORE SURFACES POST Aug 11, 2018 INSTRUCTIONS MEDICATIONS ADMINISTERED No Known Medications MEDICAL [...] shoulder surgery 2008 Surgical History Elbow repair 2016 Surgical History colonoscopy 2018 Hospitalization History Hospitalization for surgery only Hospitalization History for chest pain 11/04
--- OUTSIDE RECORDS SUMMARY | 2018-12-26 10:10 | XMS REPORT ---
Author Author ARTHUROANH KYLEE Fonseca [facility] Address Unknown Care Team Providers Care Dx Board Operator Name Role Phone KYLEE SEXTON Unavailable PROBLEMS Type Condition ICD9-CM Code [id number] Code Onset Dates Condition Status SNOMED Code Problem Anxiety state, unspecified F41.1 Active 130518205 Problem Affective disorder 296.90 Active 40382304 ALLERGIES No Known Allergies ENCOUNTERS Encounter Location Date Diagnosis [facility] [id number] [place] [address] [id number] Jul, [facility] [id number] [place] [address] [id number] Mar, Dental examination Z01.20 [facility] [id number] [place] [address] [phone] Jun, Dental examination Z01.20 [facility] [id number] [place] [address] [id number] May, Dental examination Z01.20 and Periapical abscess K04.7 [facility] [id number] [place] [address] [id number] Dec, Dental examination Z01.20 [facility] [address] [place] [address] [phone] Nov, Dental caries K02.9 [facility] [id number] [place] [address] [phone] Nov, Dental examination Z01.20 [facility] [id number] [phone] Nov, 2016 Anxiety state, unspecified F41.[address] [facility] [address] [id number] [place] [address] Oct [facility] [id number] [address] Oct, Anxiety state, unspecified F41.1 [facility] [address] [phone] Sep, Dental examination Z01.20 [facility] [address] [phone] Mar, Dental examination Z01.20 [facility] [id number] [place] [address] [id number] Oct, Encounter for dental examination Z01.20 [facility] [id number] [place] [address] [id number] Sep, Encounter for dental examination Z01.20 [facility] [id number] [place] [address] [id number] Aug, Encounter for dental examination Z01.20 [facility] [id number] [place] [address] [id number] Jul, Dental examination Z01.20 [facility] [id number] [place] [phone] Jun, Affective disorder 296.90 and [place] II diagnosis deferred 799.9 IMMUNIZATIONS No Known Immunizations SOCIAL HISTORY Never Assessed REASON FOR VISIT PLAN OF CARE Activity Details Follow Up prn Reason:Restore # 4 45 min needed VITAL SIGNS Blood pressure systolic 138 mmHg 2018-03-30 Blood pressure diastolic 70 mmHg 2018-03-30 MEDICATIONS Medication Instructions Dosage Frequency Start Date End Date Duration Status Quetiapine Fumarate 50 MG Orally Once a day 1 tablet at bedtime 24h Not-Taking Fluvoxamine Maleate 25 MG Orally Once a day 1 tablet at bedtime 24h Active [place] 10-325 MG Orally every 6 hrs 1 tablet as needed 6h Not- Taking Hydrocodone-Acetaminophen 10-325 MG Orally every 6 hrs 1 tablet as needed 6h Not-Taking Permethrin Active Vitamin D Not-Taking Bactrim DS 800-160 MG Orally Once a day 1 tablet 24h Not-Taking Omeprazole 40 MG Orally Once a day 1 capsule 24h Active Oxycodone-Acetaminophen Active Pantoprazole Sodium Active Flucelvax Quadrivalent Active Restora Not-Taking Cefadroxil 500 MG/5ML Not-Taking Ciprofloxacin HCl Active Thiothixene 5 MG Orally Twice a day 1 capsule 12h Active Baclofen Active Proctozone-HC 2.5 % Rectal Twice a day 1 application to affected area 12h Not-Taking Valium 5 MG Not-Taking MethylPREDNISolone Active Diazepam 10 MG Orally Twice a day 1 tablet as needed 12h Active Trazodone HCl Active Fluticasone Propionate (Inhal) Active RESULTS No Results PROCEDURES Procedure Date Ordered Result Body Site LTD ORAL EVALUATION - PROBLEM FOCUS March 30, 2018 INTRAORL-PERIAPICAL 1 FILM [id number] March 30, 2018 BITEWING - SINGLE FILM March 30, 2018 INSTRUCTIONS MEDICATIONS ADMINISTERED No Known Medications [...] surgery 2008 Surgical History Elbow repair 2017 Surgical History colonoscopy 2018 Hospitalization History Hospitalization for surgery only Hospitalization History for chest pain 11/04
--- OUTSIDE RECORDS SUMMARY | 2018-12-26 10:12 | XMS REPORT | Continuity of Care Document ---
Author Author [facility] Organization [facility] Address Unknown Phone Unavailable Allergies Active Description Code Type Severity Reaction Onset Reported/Identified Relationship to Patient Clinical Status Yes NO KNOWN DRUG ALLERGIES NO KNOWN DRUG ALLERG UNKNOWN Yes codeine [id number] Drug Allergy Mild NAUSEA 03/01/2018 Medications Medication Packaging Start Date Stop Date [...] MALAISE FATIGUE 09/13/2014 BONI PETTY Jose Ramon TWISTER OPERATOR Ot 608.9 10/23/2014 BONI PETTY Jose Ramon INIGUEZ Ot 298.9 10/23/2014 BONI PETTY Jose Ramon TWISTER OPERATOR Ot 789.00 12/11/2014 Ot 717.0 12/11/2014 Ot 443.89 12/11/2014 Ot 756.3 12/11/2014 BONI PETTY Jose Ramon TWISTER OPERATOR Ot 608.9 12/11/2014 BONI PETTY Jose Ramon TWISTER OPERATOR Ot 298.9 12/11/2014 BONI PETTY Jose Ramon TWISTER OPERATOR Ot 789.00 01/15/2015 Ot 717.0 01/15/2015 Ot 443.89 01/15/2015 Ot 756.3 01/15/2015 BONI PETTY Jose Ramon TWISTER OPERATOR Ot 608.9 01/15/2015 BONI PETTY Jose Ramon TWISTER OPERATOR Ot 298.9 01/15/2015 BONI PETTY Jose Ramon TWISTER OPERATOR Ot 789.00 01/15/2015 Ot 724.02 02/16/2015 ALEX GRANGER, JULIO Perez Ot 786.59 02/16/2015 Ot 717.0 02/16/2015 Ot 443.89 02/16/2015 Ot 756.3 02/16/2015 PETTY BONI Jose Ramon INIGUEZ Ot 608.9 02/16/2015 BONI PETTY Jose Ramon TWISTER OPERATOR Ot 298.9 02/16/2015 BONI PETTY Jose Ramon TWISTER OPERATOR Ot 789.00 02/16/2015 Ot 724.02 02/16/2015 LUDIN [...] JULIO Perez Ot 786.59 05/24/2015 BONI PETTY TWISTER OPERATOR Ot 780.4 06/12/2015 VIDHI NOLAND MD Ot 721.3 06/12/2015 VIDHI NOLAND MD Ot 722.52 06/12/2015 VIDHI NOLAND MD Ot V58.69 06/12/2015 ALEX GRANGER, JULIO Perez Ot 733.42 06/12/2015 ALEX GRANGER, JULIO Perez Ot 789.00 06/12/2015 ALEX GRANGER, JULIO Perez Ot 786.59 07/12/2015 Ot 717.0 07/12/2015 Ot 443.89 07/12/2015 Ot 756.3 07/12/2015 BONI PETTY TWISTER OPERATOR Ot 608.9 07/12/2015 BONI PETTY TWISTER OPERATOR Ot 298.9 07/12/2015 BONI PETTY APRN Ot 789.00 07/12/2015 Ot 724.02 07/12/2015 VIDHI NOLAND MD Ot 721.3 07/12/2015 VIDHI NOLAND MD Ot 722.52 07/12/2015 VIDHI NOLAND MD Ot V58.69 07/12/2015 ALEX GRANGER, JULIO Perez Ot 733.42 07/12/2015 ALEX GRANGER, JULIO Perez Ot 789.00 07/12/2015 ALEX GRANGER, JULIO Perez Ot 786.59 07/12/2015 BONI PETTY TWISTER OPERATOR Ot 780.4 07/12/2015 VIDHI NOLAND MD Ot 721.3 07/12/2015 VIDHI NOLAND MD Ot 722.52 07/12/2015 VIDHI NOLAND MD Ot V58.69 07/13/2015 BONI PETTY TWISTER OPERATOR Ot 780.4 07/13/2015 JULIO JOHNSON MD Ot [...] JULIO Perez Ot 786.59 08/07/2015 BONI PETTY TWISTER OPERATOR Ot 780.4 08/07/2015 BONI PETTY TWISTER OPERATOR Ot R42 08/31/2015 SIMEON FORD GEOSPATIAL INTELLIGENCE ANALYST Ot M23.261 10/29/2015 SIMEON FORD GEOSPATIAL INTELLIGENCE ANALYST Ot M23.261 11/13/2015 SIMEON FORD GEOSPATIAL INTELLIGENCE ANALYST Ot M23.261 01/08/2016 FARHAD HERZOG MD Ot [...] STERNUM ANOMAL NEC 03/20/2016 MARCIA PETTYCRISTY Albright TWISTER OPERATOR Ot 608.9 MALE GENITAL DIS NOS 03/20/2016 JOVANNY MARCIACRISTY Albright TWISTER OPERATOR Ot 298.9 PSYCHOSIS NOS 03/20/2016 PETTY MARCIACRISTY Albright TWISTER OPERATOR Ot 789.00 ABDOMINAL PAIN, UNSPECIFIED SITE 03/20/2016 [...] 786.59 CHEST PAIN NEC 03/20/2016 BONI PETTY TWISTER OPERATOR Ot 780.4 DIZZINESS AND GIDDINESS 03/20/2016 BONI PETTY APRN Ot R42 DIZZINESS AND GIDDINESS 03/20/2016 SIMEON FORD [facility] Ot M23.261 DERANGEMENT OF LAT MENSC DUE TO OLD TEAR 03/20/2016 MINO GRANGER, FARHAD Swanson Ot M75.111 INCOMPLETE ROTATR-CUFF TEAR/RUPTR OF R S 03/20/2016 FARHAD HERZOG MD Ot M75.112 INCOMPLETE ROTATR-CUFF TEAR/RUPTR OF L S 03/24/2016 Ot 717.0 OLD BUCKET TEAR MED MEN 03/24/2016 Ot 443.89 PERIPH VASCULAR DIS NEC 03/24/2016 Ot 756.3 RIB STERNUM ANOMAL NEC 03/24/2016 BONI PETTY TWISTER OPERATOR Ot 608.9 MALE GENITAL DIS NOS 03/24/2016 BONI PETTY TWISTER OPERATOR Ot 298.9 PSYCHOSIS NOS 03/24/2016 MARCIA PETTYCRISTY Albright TWISTER OPERATOR Ot 789.00 ABDOMINAL PAIN, UNSPECIFIED SITE 03/24/2016 [...] 786.59 CHEST PAIN NEC 03/24/2016 BONI PETTY TWISTER OPERATOR Ot 780.4 DIZZINESS AND GIDDINESS 03/24/2016 BONI PETTY TWISTER OPERATOR Ot R42 DIZZINESS AND GIDDINESS 03/24/2016 SIMEON [...] RIB STERNUM ANOMAL NEC 11/17/2016 BONI PETTY TWISTER OPERATOR Ot 608.9 MALE GENITAL DIS NOS 11/17/2016 BONI PETTY TWISTER OPERATOR Ot 298.9 PSYCHOSIS NOS 11/17/2016 BONI PETTY TWISTER OPERATOR Ot 789.00 ABDOMINAL PAIN, UNSPECIFIED SITE 11/17/2016 Ot 724.02 SPINAL STENOSIS, LUMBAR REG, W/OUT NEURO 11/17/2016 Ot M48.06 SPINAL STENOSIS, LUMBAR REGION 11/17/2016 LUDIN GRANGER, VIDHI Burdick Ot 721.3 LUMBOSACRAL SPONDYLOSIS 11/17/2016 VIDHI NOLAND MD Ot 722.52 LUMB/LUMBOSAC DISC DEGEN 11/17/2016 VIDHI NOLAND MD Ot M47.817 SPONDYLS W/O MYELOPATHY OR RADICULOPATHY 11/17/2016 VIDHI NOLAND MD Ot V58.69 OT MED,LT,CURRENT USE 11/17/2016 JULIO JOHNSON MD Ot 733.42 ASEPTIC NECROSIS FEMUR 11/17/2016 JULIO JOHNSON MD Ot 789.00 ABDOMINAL PAIN, UNSPECIFIED SITE 11/17/2016 JULIO JOHNSON MD Ot 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 11/17/2016 JULIO JOHNSON MD Ot R10.9 UNSPECIFIED ABDOMINAL PAIN 11/17/2016 JULIO JOHNSON MD Ot 786.59 CHEST PAIN NEC 11/17/2016 BONI PETTY N TWISTER OPERATOR Ot 780.4 DIZZINESS AND GIDDINESS 11/17/2016 BONI [...] Ot M54.6 PAIN IN THORACIC SPINE 11/27/2016 Caleb Littlejohn 883.0 OPEN WOUND OF FINGERS, WITHOUT MENTION OF COMPLICATION 11/27/2016 Caleb Littlejohn S61.052A OPEN BITE OF LEFT THUMB WITHOUT [...] M54.5 LOW BACK PAIN 12/10/2016 BONI PETTY TWISTER OPERATOR Ot M54.6 PAIN IN THORACIC SPINE 12/11/2016 [...] RIB STERNUM ANOMAL NEC 02/24/2018 BONI PETTY TWISTER OPERATOR Ot 608.9 MALE GENITAL DIS NOS 02/24/2018 BONI PETTY TWISTER OPERATOR Ot 298.9 PSYCHOSIS NOS 02/24/2018 BONI PETTY TWISTER OPERATOR Ot 789.00 ABDOMINAL PAIN, UNSPECIFIED SITE 02/24/2018 [...] 786.59 CHEST PAIN NEC 02/24/2018 BONI PETTY TWISTER OPERATOR Ot 780.4 DIZZINESS AND GIDDINESS 02/24/2018 BONI PETTY APRN Ot R42 DIZZINESS AND GIDDINESS 02/24/2018 SIMEON FORD Ot M23.261 DERANGEMENT OF LAT MENSC DUE TO OLD TEAR 02/24/2018 MINO GRANGER, FARHAD Swanson Ot M75.111 INCOMPLETE ROTATR-CUFF TEAR/RUPTR OF R S 02/24/2018 FARHAD HERZOG MD Ot M75.112 INCOMPLETE ROTATR-CUFF TEAR/RUPTR OF L S 02/24/2018 BONI PETYT TWISTER OPERATOR Ot M54.5 LOW BACK PAIN 02/24/2018 BONI PETTY APRN Ot M54.6 PAIN IN THORACIC SPINE 02/24/2018 JACINTO GRANGER, JITENDRA Stallings Ot K21.9 GASTRO-ESOPHAGEAL REFLUX DISEASE WITHOUT 02/24/2018 JACINTO GRANGER, JITENDRA Stallings Ot Z01.818 ENCOUNTER FOR OTHER PREPROCEDURAL EXAMIN 02/24/2018 JACINTO GRANGER, JITENDRA Stallings Ot Z12.11 ENCOUNTER FOR SCREENING FOR MALIGNANT NE 02/24/2018 Ot 717.0 OLD BUCKET TEAR MED MEN 02/24/2018 Ot 443.89 PERIPH VASCULAR DIS NEC 02/24/2018 Ot 756.3 RIB STERNUM ANOMAL NEC 02/24/2018 BONI PETTY TWISTER OPERATOR Ot 608.9 MALE GENITAL DIS NOS 02/24/2018 BONI PETTY TWISTER OPERATOR Ot 298.9 PSYCHOSIS NOS 02/24/2018 BONI PETTY TWISTER OPERATOR Ot 789.00 ABDOMINAL PAIN, UNSPECIFIED SITE 02/24/2018 [...] MD Ot 733.42 ASEPTIC NECROSIS FEMUR 02/24/2018 ALEX GRANGER, JULIO Perez Ot 789.00 ABDOMINAL PAIN, UNSPECIFIED SITE 02/24/2018 ALEX GRANGER, JULIO Perze Ot 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 02/24/2018 ALEX GRANGER, JULIO Perez Ot R10.9 UNSPECIFIED ABDOMINAL PAIN 02/24/2018 ALEX GRANGER, JULIO Perez Ot 786.59 CHEST PAIN NEC 02/24/2018 BONI PETTY TWISTER OPERATOR Ot 780.4 DIZZINESS AND GIDDINESS 02/24/2018 BONI PETTY TWISTER OPERATOR Ot R42 DIZZINESS AND GIDDINESS 02/24/2018 SIMEON FORD Ot M23.261 DERANGEMENT OF LAT MENSC DUE TO OLD TEAR 02/24/2018 MINO GRANGER, FARHAD Swanson Ot M75.111 INCOMPLETE ROTATR-CUFF TEAR/RUPTR OF R S 02/24/2018 FARHAD HERZOG MD Ot M75.112 INCOMPLETE ROTATR-CUFF TEAR/RUPTR OF L S 02/24/2018 BONI PETTY TWISTER OPERATOR Ot M54.5 LOW BACK PAIN 02/24/2018 BONI PETTY TWISTER OPERATOR Ot M54.6 PAIN IN THORACIC SPINE 02/25/2018 JACINTO GRANGER, JITENDRA Stallings Ot K21.9 GASTRO-ESOPHAGEAL REFLUX DISEASE WITHOUT 02/25/2018 JACINTO GRANGER, JITENDRA Stallings Ot Z01.818 ENCOUNTER FOR OTHER PREPROCEDURAL EXAMIN 02/25/2018 JACINTO GRANGER, JITENDRA Stallings Ot Z12.11 ENCOUNTER FOR SCREENING FOR MALIGNANT NE 03/01/2018 Ot 717.0 OLD BUCKET TEAR MED MEN 03/01/2018 Ot 443.89 PERIPH VASCULAR DIS NEC 03/01/2018 Ot 756.3 RIB STERNUM ANOMAL NEC 03/01/2018 BONI PETTY TWISTER OPERATOR Ot 608.9 MALE GENITAL DIS NOS 03/01/2018 BONI PETTY TWISTER OPERATOR Ot 298.9 PSYCHOSIS NOS 03/01/2018 BONI PETTY APRN Ot 789.00 ABDOMINAL PAIN, UNSPECIFIED SITE 03/01/2018 Ot 724.02 SPINAL STENOSIS, LUMBAR REG, W/OUT NEURO 03/01/2018 Ot M48.06 SPINAL STENOSIS, LUMBAR REGION 03/01/2018 LUDIN GRANGER, VIDHI Burdick Ot 721.3 LUMBOSACRAL SPONDYLOSIS 03/01/2018 VIDHI NOLAND MD Ot 722.52 LUMB/LUMBOSAC DISC DEGEN 03/01/2018 VIDHI NOLAND MD Ot M47.817 SPONDYLS W/O MYELOPATHY OR RADICULOPATHY 03/01/2018 VIDHI NOLAND MD Ot V58.69 OTH MED,LT,CURRENT USE 03/01/2018 JULIO JOHNSON MD Ot 733.42 ASEPTIC NECROSIS FEMUR 03/01/2018 JULIO JOHNSON MD Ot 789.00 ABDOMINAL PAIN, UNSPECIFIED SITE 03/01/2018 JULIO JOHNSON MD Ot 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 03/01/2018 JULIO JOHNSON MD Ot R10.9 UNSPECIFIED ABDOMINAL PAIN 03/01/2018 JULIO JOHNSON MD Ot 786.59 CHEST PAIN NEC 03/01/2018 BONI PETYT APRN Ot 780.4 DIZZINESS AND GIDDINESS 03/01/2018 BONI PETTY APRN Ot R42 DIZZINESS AND GIDDINESS 03/01/2018 SIMEON FORD GEOSPATIAL INTELLIGENCE ANALYST Ot M23.261 DERANGEMENT OF LAT MENSC DUE TO OLD TEAR 03/01/2018 FARHAD HERZOG MD Ot M75.111 INCOMPLETE ROTATR-CUFF TEAR/RUPTR OF R S 03/01/2018 FARHAD HERZOG MD Ot M75.112 INCOMPLETE ROTATR-CUFF TEAR/RUPTR OF L S 03/01/2018 BONI PETTY APRN Ot M54.5 LOW BACK PAIN 03/01/2018 BONI PETTY APRN Ot M54.6 PAIN IN THORACIC SPINE 03/01/2018 JACINTO GRANGER, JITENDRA Stallings Ot K20.9 ESOPHAGITIS, UNSPECIFIED 03/01/2018 JITENDRA CASEY MD, Ot K25.9 GASTRIC ULCER, UNSP ACUTE OR CHRONIC, 03/01/2018 JITENDRA CASEY MD Ot K31.9 DISEASE OF STOMACH AND DUODENUM, UNSPECI 03/01/2018 JITENDRA CASEY MD, Ot K44.9 DIAPHRAGMATIC HERNIA WITHOUT OBSTRUCTION 03/01/2018 JITENDRA CASEY MD Ot K57.30 DVRTCLOS OF LG INT W/O PERFORATION OR AB 03/01/2018 JITENDRA CASEY MD Ot Z12.11 ENCOUNTER FOR SCREENING FOR MALIGNANT NE 03/01/2018 JITENDRA CASEY MD Ot Z80.0 FAMILY HISTORY OF MALIGNANT NEOPLASM OF 03/03/2018 JITENDRA CASEY MD Ot K20.9 ESOPHAGITIS, UNSPECIFIED 03/03/2018 JITENDRA CASEY MD Ot K25.9 GASTRIC ULCER, UNSP ACUTE OR CHRONIC, 03/03/2018 JITENDRA CASEY MD Ot K31.9 DISEASE OF STOMACH AND DUODENUM, UNSPECI 03/03/2018 JITENDRA CASEY MD Ot K44.9 DIAPHRAGMATIC HERNIA WITHOUT OBSTRUCTION 03/03/2018 JITENDRA CASEY MD, Ot K57.30 DVRTCLOS OF LG INT W/O PERFORATION OR AB 03/03/2018 JITENDRA CASEY MD, Ot Z12.11 ENCOUNTER FOR SCREENING FOR MALIGNANT NE 03/03/2018 JITENDRA CASEY MD Ot Z80.0 FAMILY HISTORY OF MALIGNANT NEOPLASM OF 07/23/2018 SHAVON PRUETT MD, Ot E78.00 PURE HYPERCHOLESTEROLEMIA, UNSPECIFIED 07/23/2018 SHAVON PRUETT MD Ot F32.9 MAJOR DEPRESSIVE DISORDER, SINGLE EPISOD 07/23/2018 SHAVON PRUETT MD, Ot F41.9 ANXIETY DISORDER, UNSPECIFIED 07/23/2018 SHAVON PRUETT MD, Ot K21.9 GASTRO-ESOPHAGEAL REFLUX DISEASE WITHOUT 07/23/2018 SHAVON PRUETT MD Ot M54.41 LUMBAGO WITH SCIATICA, RIGHT SIDE 07/23/2018 SHAVON PRUETT MD, Ot M54.5 LOW BACK PAIN 07/23/2018 SHAVON PRUETT MD Ot Z87.19 PERSONAL HISTORY OF OTHER DISEASES OF TH 07/23/2018 SHAVON PRUETT MD, Ot Z87.891 PERSONAL HISTORY OF NICOTINE DEPENDENCE 07/23/2018 SHAVON PRUETT MD, Ot Z88.5 ALLERGY STATUS TO NARCOTIC AGENT STATUS 07/26/2018 SHAVON PRUETT MD, Ot E78.00 PURE HYPERCHOLESTEROLEMIA, UNSPECIFIED 07/26/2018 SHAVON PRUETT MD Ot F32.9 MAJOR DEPRESSIVE DISORDER, SINGLE EPISOD 07/26/2018 SHAVON PRUETT MD Ot F41.9 ANXIETY DISORDER, UNSPECIFIED 07/26/2018 SHAVON PRUETT MD, Ot K21.9 GASTRO-ESOPHAGEAL REFLUX DISEASE WITHOUT 07/26/2018 SHAVON PRUETT MD Ot M54.41 LUMBAGO WITH SCIATICA, RIGHT SIDE 07/26/2018 SHAVON PRUETT MD Ot M54.5 LOW BACK PAIN 07/26/2018 SHAVON PRUETT MD Ot Z87.19 PERSONAL HISTORY OF OTHER DISEASES OF TH 07/26/2018 SHAVON PRUETT MD Ot Z87.891 PERSONAL HISTORY OF NICOTINE DEPENDENCE 07/26/2018 SHAVON PRUETT MD Ot Z88.5 ALLERGY STATUS TO NARCOTIC AGENT STATUS 08/19/2018 SREE ZALDIVAR TWISTER OPERATOR Ot D17.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 SITE 08/19/2018 SREE ZALDIVAR TWISTER OPERATOR Ot M43.17 SPONDYLOLISTHESIS, LUMBOSACRAL REGION 08/19/2018 SREE ZALDIVAR TWISTER OPERATOR Ot M51.37 OTHER INTERVERTEBRAL DISC DEGENERATION, 08/19/2018 SREE ZALDIVAR TWISTER OPERATOR Ot M99.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 08/26/2018 SREE ZALDIVAR TWISTER OPERATOR Ot M43.17 SPONDYLOLISTHESIS, LUMBOSACRAL REGION 08/26/2018 SREE ZALDIVAR TWISTER OPERATOR Ot M47.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 08/26/2018 SREE ZALDIVAR TWISTER OPERATOR Ot M47.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 08/26/2018 SREE ZALDIVAR TWISTER OPERATOR Ot M47.816 SPONDYLOSIS W/O MYELOPATHY OR RADICULOPA 09/06/2018 SREE ZALDIVAR TWISTER OPERATOR Ot D17.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 SITE 09/06/2018 SREE ZALDIVAR TWISTER OPERATOR Ot M43.17 SPONDYLOLISTHESIS, LUMBOSACRAL REGION 09/06/2018 SREE ZALDIVAR TWISTER OPERATOR Ot M51.37 OTHER INTERVERTEBRAL DISC DEGENERATION, 09/06/2018 SREE ZALDIVAR TWISTER OPERATOR Ot M99.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 12/21/2018 CALEB LITTLEJOHN TWISTER OPERATOR Ot E78.00 PURE HYPERCHOLESTEROLEMIA, UNSPECIFIED 12/21/2018 CALEB LITTLEJOHN TWISTER OPERATOR Ot F32.9 MAJOR DEPRESSIVE DISORDER, SINGLE EPISOD 12/21/2018 CALEB LITLTEJOHN TWISTER OPERATOR Ot F41.9 ANXIETY DISORDER, UNSPECIFIED 12/21/2018 CALEB LITTLEJOHN TWISTER OPERATOR Ot K21.9 GASTRO-ESOPHAGEAL REFLUX DISEASE WITHOUT 12/21/2018 CALEB LITTLEJOHN APRN Ot M54.16 RADICULOPATHY, LUMBAR REGION 12/21/2018 CALEB LITTLEJOHN APRN Ot M54.5 LOW BACK PAIN 12/21/2018 CALEB LITTLEJOHN APRN Ot Z79.52 ORE DIGGER (CURRENT) USE OF SYSTEMIC STER 12/21/2018 CALEB LITTLEJOHN APRN Ot Z87.19 PERSONAL HISTORY OF OTHER DISEASES OF TH 12/21/2018 CALEB LITTLEJOHN APRN Ot Z87.891 PERSONAL HISTORY OF NICOTINE DEPENDENCE 12/21/2018 CALEB LITTLEJOHN APRN Ot Z88.5 ALLERGY STATUS TO NARCOTIC AGENT STATUS Procedures There is no data. Results Test Result Range Complete blood count (CBC) with automated white blood cell (WBC) differential - 12/18/18 20:30 Blood leukocytes automated count (number/volume) 10.5 10*3/uL 4.3-11.0 Blood erythrocytes automated count (number/volume) 4.51 10*6/uL 4.35-5.85 Venous blood hemoglobin measurement (mass/volume) 15.5 g/dL 13.3-17.7 Blood hematocrit (volume fraction) 42 % 40-54 Automated erythrocyte mean corpuscular volume 94 [foz_us] 80-99 Automated erythrocyte mean corpuscular hemoglobin (mass per erythrocyte) 34 pg 25-34 Automated erythrocyte mean corpuscular hemoglobin concentration measurement ( mass/volume) 37 g/dL 32-36 Automated erythrocyte distribution width ratio 12.0 % 10.0-14.5 Automated blood platelet count (count/volume) 227 10*3/uL 130-400 Automated blood platelet mean volume measurement 10.6 [foz_us] 7.4-10.4 Automated blood neutrophils/100 leukocytes 45 % 42-75 Automated blood lymphocytes/100 leukocytes 32 % 12-44 Blood monocytes/100 leukocytes 18 % 0-12 Automated blood eosinophils/100 leukocytes 5 % 0-10 Automated blood basophils/100 leukocytes 1 % 0-10 Blood neutrophils automated count (number/volume) 4.8 10*3 1.8-7.8 Blood lymphocytes automated count (number/volume) 3.3 10*3 1.0-4.0 Blood monocytes automated count (number/volume) 1.9 10*3 0.0-1.0 Automated eosinophil count 0.5 10*3/uL 0.0-0.3 Automated blood basophil count (count/volume) 0.1 10*3/uL 0.0-0.1 Whole blood basic metabolic panel - 12/18/18 20:30 Serum or plasma sodium measurement (moles/volume) 138 mmol/L 135-145 Serum or plasma potassium measurement (moles/volume) 3.9 mmol/L 3.6-5.0 Serum or plasma chloride measurement (moles/volume) 103 mmol/L 98-107 Carbon dioxide 23 mmol/L 21-32 Serum or plasma anion gap determination (moles/volume) 12 mmol/L 5-14 Serum or plasma urea nitrogen measurement (mass/volume) 17 mg/dL 7-18 Serum or plasma creatinine measurement (mass/volume) 0.93 mg/dL 0.60-1.30 Serum or plasma urea nitrogen/creatinine mass ratio 18 NRG Serum or plasma creatinine measurement with calculation of estimated glomerular filtration rate > NRG Serum or plasma glucose measurement (mass/volume) 103 mg/dL 70-105 Serum or plasma calcium measurement (mass/volume) 10.0 mg/dL 8.5-10.1 Complete urinalysis with reflex to culture - 12/18/18 20:30 Urine color determination YELLOW NRG Urine clarity determination CLEAR NRG Urine pH measurement by test strip 8 5-9 Specific gravity of urine by test strip 1.010 1.016- 1.022 Urine protein assay by test strip, semi-quantitative NEGATIVE NEGATIVE Urine glucose detection by automated test strip NEGATIVE NEGATIVE Erythrocytes detection in urine sediment by light microscopy NEGATIVE NEGATIVE Urine ketones detection by automated test strip NEGATIVE NEGATIVE Urine nitrite detection by test strip NEGATIVE NEGATIVE Urine total bilirubin detection by test strip NEGATIVE NEGATIVE Urine urobilinogen measurement by automated test strip (mass/volume) NORMAL NORMAL Urine leukocyte esterase detection by dipstick NEGATIVE NEGATIVE Automated urine sediment erythrocyte count by microscopy (number/high power field) NONE NRG Automated urine sediment leukocyte count by microscopy (number/high power field ) NONE NRG Bacteria detection in urine sediment by light microscopy NEGATIVE NRG Crystals detection in urine sediment by light microscopy NONE NRG Casts detection in urine sediment by light microscopy NONE NRG Mucus detection in urine sediment by light microscopy NEGATIVE NRG Complete urinalysis with reflex to culture NO NRG Urine drug screening test - 12/18/18 20:30 Urine phencyclidine detection by screening method NEGATIVE NEGATIVE Urine benzodiazepines detection by screening method POSITIVE NEGATIVE Urine cocaine detection NEGATIVE NEGATIVE Urine amphetamines detection by screening method NEGATIVE NEGATIVE Urine methamphetamine detection by screening method NEGATIVE NEGATIVE Urine cannabinoids detection by screening method NEGATIVE NEGATIVE Urine opiates detection by screening method NEGATIVE NEGATIVE Urine barbiturates detection NEGATIVE NEGATIVE Screening urine tricyclic antidepressants detection NEGATIVE NEGATIVE Urine methadone detection by screening method NEGATIVE NEGATIVE Urine oxycodone detection NEGATIVE NEGATIVE Urine propoxyphene detection NEGATIVE NEGATIVE Serum or plasma ethanol measurement (mass/volume) - 12/18/18 20:30 Serum or plasma ethanol measurement (mass/volume) < mg/dL <10 Encounters ACCT No. Visit Date/Time Discharge Status Pt. Type Provider Facility Loc./Unit Complaint [id number] 12/18/2018 19:54:00 12/18/2018 21:54:00 DIS Outpatient CALEB LITTLEJOHN TWISTER OPERATOR [facility] ER SEVERE LEG PAIN [id number] 08/18/2018 10:00:00 08/18/2018 23:59:59 CLS Outpatient SREE ZALDIVAR TWISTER OPERATOR [facility] RAD LOW BACK PAIN [id number] 08/09/2018 10:08:00 08/09/2018 23:59:59 CLS Outpatient SREE ZALDIVAR TWISTER OPERATOR [facility] RAD LOW BACK PAIN [id number] 07/23/2018 08:57:00 07/23/2018 11:05:00 DIS Emergency SHAVON PRUETT MD [facility] ER BACK PAIN [id number] 03/01/2018 09:13:00 03/01/2018 14:20:00 DIS Outpatient JITENDRA CASEY MD [facility] ENDO SCREENING/GERD [id number] 02/24/2018 05:37:00 02/24/2018 10:39:00 DIS Outpatient JITENDRA CASEY MD [facility] PREOP COLONOSCOPY/EGD [id number] 11/17/2016 09:44:00 11/17/2016 23:59:59 CLS Outpatient BONI PETTY TWISTER OPERATOR [facility] RAD LOW BACK PAIN, THORACIC BACK PAIN [id number] 03/27/2016 07:15:00 03/27/2016 12:55:00 DIS Outpatient KEV KLINE DO [facility] SDC PAINFUL SCAR LEFT UPPER EXTREMITY [id number] 03/24/2016 15:23:00 03/24/2016 16:00:00 DIS Outpatient KEV KLINE DO [facility] PREOP PAINFUL SCAR LEFT UPPER EXTREMITY [id number] 12/18/2015 10:01:00 12/18/2015 23:59:59 CLS Outpatient MINO GRANGER, FARHAD Swanson [facility] RAD RT AND LEFT SHOULDER RTC TEAR [id number] 08/07/2015 15:25:00 08/07/2015 23:59:59 CLS Outpatient SIMEON FORD [facility] RAD RT KNEE LATERAL MENISCUS TEAR [id number] 08/03/2015 08:42:00 08/03/2015 09:53:00 DIS Outpatient VIDHI NOLAND MD [facility] CARD INTREVETREBRAL DISC DISPLACEMENT LUMBAR REGION [id number] 05/03/2015 09:28:00 05/03/2015 23:59:59 CLS Outpatient BONI PETTY APRN [facility] RAD DIZZINESS [id number] 04/26/2015 15:54:00 04/26/2015 17:12:00 DIS Emergency NOEL DOYLE MD [facility] ER CP,DIZZINESS [id number] 04/13/2015 20:23:00 04/13/2015 21:50:00 DIS Emergency JULI DAWN MD [facility] ER POSSIBLE STROKE [id number] 01/23/2015 12:54:00 01/23/2015 23:59:59 CLS Outpatient JULIO JOHNSON MD [facility] RAD CHEST PAIN [id number] 01/18/2015 11:19:00 01/18/2015 23:59:59 CLS Outpatient JULIO JOHNSON MD [facility] RAD ABDOMINAL PAIN [id number] 01/15/2015 12:32:00 01/15/2015 23:59:59 CLS Outpatient VIDHI NOLAND MD [facility] CARD DDD [id number] 09/21/2014 11:48:00 09/21/2014 23:59:59 CLS Outpatient BONI PETTY TWISTER OPERATOR [facility] RAD CONFUSION,DIZZINESS, ABD PAIN [id number] 09/12/2014 12:38:00 09/12/2014 15:10:00 DIS Emergency CARLINE LEWIS DO [facility] ER BODYACHES [id number] 08/16/2014 11:59:00 08/16/2014 23:59:59 CLS Outpatient BONI PETTY TWISTER OPERATOR 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 RAD M51.36 [id number] 12/11/2014 08:16:00 Document Registration [id number] 09/12/2014 12:38:00 Document Registration [id number] 12/20/2012 15:43:00 Document Registration [id number] 11/06/2012 17:02:00 Document Registration [id number] 09/16/2012 13:17:00 Document Registration [id number] 10/30/2011 20:25:00 Document Registration [id number] 03/30/2018 08:30:00 03/30/2018 23:59:59 CLS [id number] 12/11/2016 09:17:00 12/11/2016 09:35:00 DIS Outpatient Iban Amador [id number] 12/04/2016 08:48:00 12/04/2016 09:00:00 DIS Outpatient Iban Amador [id number] 11/30/2016 08:34:00 11/30/2016 08:48:00 DIS Outpatient Iban Amador [id number] 11/28/2016 09:16:00 11/28/2016 10:20:00 DIS Outpatient Iban Amador [id number] 11/27/2016 09:16:00 11/27/2016 10:50:00 [id number]/27/2016 09:35:22 Document Registration [id number] 05/03/2015 09:29:17 ACT Document Registration
[2018-12-26 11:18] LABS: BASOPHILS # (AUTO) 0.1 10^3/uL (0.0-0.1); BASOPHILS % (AUTO) 1 % (0-10); EOSINOPHILS # (AUTO) 0.2 10^3/uL (0.0-0.3); EOSINOPHILS % (AUTO) 2 % (0-10); HEMATOCRIT 43 % (40-54); HEMOGLOBIN 15.4 G/DL (13.3-17.7); LYMPHOCYTES # (AUTO) 1.8 X 10^3 (1.0-4.0); LYMPHOCYTES % (AUTO) 17 % (12-44); MEAN CORPUSCULAR HEMOGLOBIN 34 PG (25-34); MEAN CORPUSCULAR HGB CONC 36 G/DL (32-36); MEAN CORPUSCULAR VOLUME 95 FL (80-99); MEAN PLATELET VOLUME 10.3 FL (7.4-10.4); MONOCYTES # (AUTO) 1.3 X 10^3 (0.0-1.0); MONOCYTES % (AUTO) 13 % (0-12); NEUTROPHILS # (AUTO) 6.7 X 10^3 (1.8-7.8); NEUTROPHILS % (AUTO) 67 % (42-75); PLATELET COUNT 219 10^3/uL (130-400); RED CELL DISTRIBUTION WIDTH 12.1 % (10.0-14.5); WHITE BLOOD COUNT 10.1 10^3/uL (4.3-11.0)
--- NOTE | 2018-12-26 11:22 | ED General ---
General Chief Complaint: General Problems/Pain Stated Complaint: ABD PAIN,ULCER SYMPTOMS Nursing Triage Note: TO ROOM 05 VIA WC. STATES HE WAS HERE LAST WEEK AND IS NOT BETTER. BILAT LEGS ARE MORE WEAK, HAVING ABD PAIN, AND "JUST IS NOT RIGHT IN THE HEAD." Nursing Sepsis Screen: No Definite Risk Source of Information: Patient Exam Limitations: No Limitations History of Present Illness Date Seen by Provider: Dec 26, 2018 Time Seen by Provider: 10:45 Initial Comments This 63-year-old man presents to the emergency room with complaints of diffuse pain including headache, pain throughout the spine, and pain in the lower extremities. He has difficulty elaborating on the focus of his pain. Has also had some blurry vision. Symptoms have been progressive since he was in the ER on December 18 with severe lower back pain with lower extremity radicular symptoms. He has bilateral leg weakness and now has difficulty controlling his urine. In fact he has spilled some urine on the floor while urinating into a urinal. Patient has a long-standing history of lumbar disease since having an injury falling out of a tree landing on his feet as a youth. He had an MRI of the lumbar spine July 2018 showing L5-S1 spondylolisthesis. There was some neuroforaminal narrowing but no central canal stenosis. He also had an MRI of the brain in 2014 which was negative. Patient's son is with him and reports that patient has been on the floor several times over the past few days when he has come to patient's house for a visit. On assessment, there are no focal neurologic deficits but gait is markedly abnormal with shortened steps and wide shuffling gait. He reports some constipation recently as well. He is alert and oriented. He declines pain medication at this time. Pain is rated as 7/ 10. He initially denied drug or alcohol use. Allergies and Home Medications Allergies Coded Allergies: codeine (Verified Allergy, Mild, NAUSEA, 02/24/18) ketamine (Verified Adverse Reaction, Unknown, DOES NOT LIKE THE WAY IT MAKES HIM FEEL., 12/26/18) Home Medications Cephalexin 500 Mg Capsule, 500 MG PO TID Prescribed by: RINA DE LEÓN on 12/26/18 1440 Diazepam 10 Mg Tablet, 10 MG PO BID, (Reported) Esomeprazole Magnesium 20 Mg Capsule.dr, 20 MG PO DAILY, (Reported) Garlic 1 Each Tablet, 1 EACH PO DAILY, (Reported) Polyethylene Glycol 3350 119 Gm Powder, 17 GM PO BID PRN for CONSTIPATION-1ST LINE Prescribed by: RINA DE LEÓN on 12/26/18 1440 Prednisone 20 Mg Tab, 20 MG PO DAILY 3 tabs each a.m. Prescribed by: SHAVON PRUETT on 07/23/18 1042 Simvastatin 20 Mg Tablet, 20 MG PO HS, (Reported) Thiothixene 5 Mg Capsule, 5 MG PO DAILY, (Reported) Tramadol HCl 50 Mg Tablet, 50 MG PO 4 times a day Prescribed by: SHAVON PRUETT on 07/23/18 1043 Patient Home Medication List Home Medication List Reviewed: Yes Review of Systems Review of Systems Constitutional: no symptoms reported EENTM: no symptoms reported Respiratory: no symptoms reported Cardiovascular: no symptoms reported Gastrointestinal: no symptoms reported Genitourinary: no symptoms reported Musculoskeletal: see HPI Skin: no symptoms reported Psychiatric/Neurological: See HPI Hematologic/Lymphatic: No Symptoms Reported Immunological/Allergic: no symptoms reported Past Tjgbwzc-Infhww-Ajpfeq Hx Past Med/Social Hx: Reviewed and Corrections made Patient Social History Alcohol Use: Past History Recreational Drug Use: No Smoking Status: Never a Smoker Former Smoker, Quit: Aug 06, 1998 Recent Foreign Travel: No Contact w/Someone Who Travel: No Recent Infectious Disease Expo: No Recent Hopitalizations: No Immunizations Up To Date Tetanus Booster (TDap): Less than 5yrs Date of Influenza Vaccine: Aug 03, 2017 Seasonal Allergies Seasonal Allergies: Yes Past Medical History Surgeries: Yes Orthopedic Respiratory: No Cardiac: Yes High Cholesterol Neurological: Yes (alcohol-induced neuropathic disorder) Reproductive Disorders: No Sexually Transmitted Disease: No HIV/AIDS: No Genitourinary: No Gastrointestinal: Yes Gastroesophageal Reflux, Chronic Diarrhea Musculoskeletal: Yes (spine trauma. Lumbar neural foraminal stenosis. Spondylolisthesis at L5-S1) Arthritis, Chronic Back Pain Endocrine: No HEENT: Yes Loss of Vision: Bilateral Hearing Impairment: Hard of Hearing, Bilateral Hearing Aide Cancer: No Psychosocial: Yes ("ANGER ISSUES") Anxiety, Depression Integumentary: No Blood Disorders: No Adverse Reaction/Blood Tranf: No (N/A) Family Medical History No Pertinent Family Hx Physical Exam Vital Signs Vital Signs - First Documented 12/26/18 12/26/18 10:09 13:16 Temp 97.5 Pulse 71 Resp 18 B/P (MAP) 124/95 (105) Pulse Ox 100 O2 Delivery Room Air Capillary Refill : Less Than 3 Seconds Height, Weight, BMI Height: 5'8.00" Weight: 165lbs. 4.0oz. 74.729720gr; 25.9 BMI Method:Stated General Appearance: WD/WN, Moderate Distress HEENT: PERRL/EOMI, Normal ENT Inspection Neck: Normal Inspection Respiratory: Lungs Clear, Normal Breath Sounds, No Accessory Muscle Use, No Respiratory Distress Cardiovascular: Regular Rate, Rhythm, No Edema, No Murmur Gastrointestinal: Normal Bowel Sounds, Soft, Tenderness (Upper abdominal tenderness) Extremity: Normal Inspection, No Pedal Edema Neurologic/Psychiatric: Alert, Oriented x3, Normal Mood/Affect, Other (normal finger to nose and heel to santana. Strength normal. Gait wide and shuffled, sometimes centering gravity on his heels.) Skin: Normal Color, Warm/Dry Progress/Results/Core Measures Suspected Sepsis Recent Fever Within 48 Hours: No Infection Criteria Present: None New/Unexplained Altered Menta: No Sepsis Screen: No Definite Risk SIRS Temperature:97.5 Pulse: 71 Respiratory Rate: Laboratory Tests 12/26/18 11:10: White Blood Count 10.1 Blood Pressure 124 /95 Mean: 105 Laboratory Tests 12/26/18 11:10: Creatinine 0.90, Platelet Count 219, Total Bilirubin 0.5 Results/Orders Lab Results Laboratory Tests Test 12/26/18 11:10 12/26/18 11:16 Range/Units White Blood Count 10.1 4.3-11.0 10^3/uL Red Blood Count 4.48 4.35-5.85 10^6/uL Hemoglobin 15.4 13.3-17.7 G/DL Hematocrit 43 40-54 % Mean Corpuscular Volume 95 80-99 FL Mean Corpuscular Hemoglobin 34 25-34 PG Mean Corpuscular Hemoglobin Concent 36 32-36 G/DL Red Cell Distribution Width 12.1 10.0-14.5 % Platelet Count 219 130-400 10^3/uL Mean Platelet Volume 10.3 7.4-10.4 FL Neutrophils (%) (Auto) 67 42-75 % Lymphocytes (%) (Auto) 17 12-44 % Monocytes (%) (Auto) 13 H 0-12 % Eosinophils (%) (Auto) 2 0-10 % Basophils (%) (Auto) 1 0-10 % Neutrophils # (Auto) 6.7 1.8-7.8 X 10^3 Lymphocytes # (Auto) 1.8 1.0-4.0 X 10^3 Monocytes # (Auto) 1.3 H 0.0-1.0 X 10^3 Eosinophils # (Auto) 0.2 0.0-0.3 10^3/uL Basophils # (Auto) 0.1 0.0-0.1 10^3/uL Sodium Level 139 135-145 MMOL/L Potassium Level 3.8 3.6-5.0 MMOL/L Chloride Level 105 98-107 MMOL/L Carbon Dioxide Level 24 21-32 MMOL/L Anion Gap 10 5-14 MMOL/L Blood Urea Nitrogen 19 H 7-18 MG/DL Creatinine 0.90 0.60-1.30 MG/DL Estimat Glomerular Filtration Rate > 60 BUN/Creatinine Ratio 21 Glucose Level 88 70-105 MG/DL Calcium Level 9.3 8.5-10.1 MG/DL Corrected Calcium 9.0 8.5-10.1 MG/DL Total Bilirubin 0.5 0.1-1.0 MG/DL Aspartate Amino Transf (AST/SGOT) 22 5-34 U/L Alanine Aminotransferase (ALT/SGPT) 22 0-55 U/L Alkaline Phosphatase 51 40-136 U/L Total Creatine Kinase 96 30-200 U/L Myoglobin 48.7 10.0-92.0 NG/ML C-Reactive Protein High Sensitivity 0.04 0.00-0.50 MG/DL Total Protein 7.1 6.4-8.2 GM/DL Albumin 4.4 3.2-4.5 GM/DL TSH [place] Testing 0.36 0.35-4.94 UIU/ML Serum Alcohol < 10 <10 MG/DL Urine Color YELLOW Urine Clarity CLEAR Urine pH 7 5-9 Urine Specific [place] 1.015 L 1.016-1.022 Urine Protein NEGATIVE NEGATIVE Urine Glucose (UA) NEGATIVE NEGATIVE Urine Ketones NEGATIVE NEGATIVE Urine Nitrite NEGATIVE NEGATIVE Urine Bilirubin NEGATIVE NEGATIVE Urine Urobilinogen NORMAL NORMAL MG/DL Urine Leukocyte Esterase NEGATIVE NEGATIVE Urine RBC (Auto) NEGATIVE NEGATIVE Urine RBC NONE /HPF Urine WBC NONE /HPF Urine Crystals NONE /LPF Urine Bacteria MODERATE H /HPF Urine Casts NONE /LPF Urine Mucus MODERATE H /LPF Urine Culture Indicated NO Urine Opiates Screen NEGATIVE NEGATIVE Urine Oxycodone Screen NEGATIVE NEGATIVE Urine Methadone Screen NEGATIVE NEGATIVE Urine Propoxyphene Screen NEGATIVE NEGATIVE Urine Barbiturates Screen NEGATIVE NEGATIVE Ur Tricyclic Antidepressants Screen NEGATIVE NEGATIVE Urine Phencyclidine Screen NEGATIVE NEGATIVE Urine Amphetamines Screen NEGATIVE NEGATIVE Urine Methamphetamines Screen NEGATIVE NEGATIVE Urine Benzodiazepines Screen POSITIVE H NEGATIVE Urine Cocaine Screen NEGATIVE NEGATIVE Urine Cannabinoids Screen NEGATIVE NEGATIVE My Orders Orders - RINA TUCKER MD Alcohol (12/26/18 11:00) Cbc With Automated Diff (12/26/18 11:00) Comprehensive Metabolic Panel (12/26/18 11:00) Hs C Reactive Protein (12/26/18 11:00) Drug Screen Stat (Urine) (12/26/18 11:00) Thyroid Analyzer (12/26/18 11:00) Ua Culture If Indicated (12/26/18 11:00) Saline Lock/Iv-Start (12/26/18 11:00) Bladder Scan (12/26/18 11:00) Ct Head/Cervical Spine Wo (12/26/18 11:07) Ct Thoracic/Lumbar Spine Wo (12/26/18 11:07) Creatine Kinase (12/26/18 13:13) Myoglobin Serum (12/26/18 13:13) Saline Lock/Iv-Start (12/26/18 13:13) Ns Iv 1000 Ml (Sodium Chloride 0.9%) (12/26/18 13:13) Urine Culture (12/26/18 13:56) Medications Given in ED Vital Signs/I&O Capillary Refill : Less Than 3 Seconds Blood Pressure Mean: 105 Progress Note #1: Time: 13:14 Progress Note Workup so far has been unremarkable except for lumbar spine disease which was previously known by prior imaging. No central stenosis was identified on CT of the spine. Patient now provides further history. He reports a pending appointment with neurosurgery (Dr. Vargas) in January to address his lumbar spine disease. He reports that the symptoms he is experiencing are actually gradual and progressive over time. He also now admits that he has an alcohol- induced neuropathic disorder the name of which he cannot remember. He reports drinking alcohol until 3 months ago. He has been abstinent since then. Patient states he has diffuse muscle pain. A CK and myoglobin have been added to his labs. We will give him a liter of IV hydration in the meantime. Progress Note #2: Progress Note Patient's symptoms gradually improved over the course of his ER stay. CK and myoglobin were normal. Patient was dismissed home to continue with his outpatient workup. Diagnostic Imaging Diagonstic Imaging: CT Plain Films/CT/US/NM/MRI: c-spine, head Comments CT head and C-spine viewed by me and report reviewed. See report below: NAME: FARHAD HEMPHILL [facility] REC#: [id number] PT STATUS: DEP ER : 1955 PHYSICIAN: RINA TUCKER MD ADMIT DATE: 12/26/18/ER Signed Date of Exam: 12/26/18 CT HEAD/CERVICAL SPINE WO PROCEDURE: CT head and CT cervical spine without contrast. TECHNIQUE: Multiple contiguous axial images were obtained through the brain and cervical spine without the use of intravenous contrast. Sagittal and coronal reformations through the cervical spine were then performed. Indication: Altered mental status, weakness, leg pain. Comparison: Head CT 09/21/2014. Discussion: Head: No adverse interval change. No intracranial hemorrhage, mass, midline shift, or hydrocephalus. The ventricles and sulci are normal size and configuration for age. The visualized orbits, mastoid air cells, and calvarium are unremarkable. Mild mucosal thickening within the sinuses. No air-fluid level. Cervical spine: Moderate degenerative disc disease noted at the C4-C5 and C5-C6 level. No fracture or subluxation. Overall alignment is anatomic. Paraspinal soft tissues are unremarkable. Impression: 1. Stable negative head CT. 2. Negative cervical spine. Dictated by: Dictated on workstation # [id number] Dict: 12/26/18 1211 Trans: 12/26/18 1557 Interpreted by: GINA MONTEIRO MD Electronically signed by: GINA MONTEIRO MD 12/26/18 7717 Diagonstic Imaging: CT Plain Films/CT/US/NM/MRI: other (Thoracic and lumbar spine) Comments CT thoracic and lumbar spine viewed by me and report reviewed. See report below : NAME: FARHAD HEMPHILL [facility] REC#: [id number] PT STATUS: DEP ER : 1955 PHYSICIAN: RINA TUCKER MD ADMIT DATE: 12/26/18/ER Signed Date of Exam: 12/26/18 CT THORACIC/LUMBAR SPINE WO Indication: Generalized weakness and leg pain, altered mental status. Comparison: None. Technique: Contiguous axial images were obtained through the thoracic and lumbar spine without contrast. Discussion: No fracture identified. Chronic bilateral L5 pars defect is noted with grade 1 anterolisthesis. Mild degenerative disc disease is noted throughout the thoracic spine. Moderate degenerative disc disease is noted within the L5-S1 level. Mild facet arthropathy is noted. Mild degenerative disease within the sacroiliac joints. Paraspinal soft tissues are unremarkable. There is no obvious severe central canal stenosis on this noncontrast exam. There is no severe neural foraminal narrowing identified. Impression: 1. Chronic bilateral L5 pars defect with grade 1 anterolisthesis. 2. Mild degenerative disease within the thoracic and lumbar spine. No acute fracture otherwise. Dictated by: Dictated on workstation # [id number] Dict: 12/26/18 1213 Trans: 12/26/18 1557 Interpreted by: GINA MONTEIRO MD Electronically signed by: GINA MONTEIRO MD 12/26/18 1557 Departure Impression Primary Impression: Gait disturbance Additional Impressions: Constipation Qualified Codes: K59.00 - Constipation, unspecified Urinary tract infection Qualified Codes: N39.0 - Urinary tract infection, site not specified Disposition: 01 HOME, SELF-CARE Condition: Stable Departure-Patient Inst. Referrals: JULIO JOHNSON MD (PCP/Family) Primary Care Physician Patient Instructions: Constipation in Adults, Urinary Tract Infection, Adult ( DC) Add. Discharge Instructions: Drink plenty of clear liquids. Complete your antibiotics as prescribed. Follow-up with Dr. Johnson on Thursday or Thursday to review urine culture results. You may use MiraLAX (polyethylene glycol) once or twice daily for treatment of constipation. Follow-up with Dr. Johnson and your neurosurgeon as soon as possible. Return to care if symptoms are worsening. Use your walker at all times when ambulating to prevent falls. All discharge instructions reviewed with patient and/or family. Voiced understanding. Scripts Polyethylene Glycol 3350 (Miralax) 119 Gm Powder 17 GM PO BID PRN for CONSTIPATION-1ST LINE, #1 EA Prov: RINA TUCKER MD 12/26/18 Cephalexin (Keflex) 500 Mg Capsule 500 MG PO TID, #20 CAP Prov: RINA TUCKER MD 12/26/18 Copy Copies To 1: JULIO JOHNSON MD, JOSHUA T MD Dec 26, 2018 11:22
[2018-12-26 11:23] LABS: BILIRUBIN,URINE NEGATIVE (NEGATIVE); CLARITY,URINE CLEAR; COLOR,URINE YELLOW; GLUCOSE, URINE (UA) NEGATIVE (NEGATIVE); KETONES,URINE NEGATIVE (NEGATIVE); LEUKOCYTE ESTERASE ,URINE NEGATIVE (NEGATIVE); NITRITE,URINE NEGATIVE (NEGATIVE); PH,URINE 7 (5-9); PROTEIN,URINE NEGATIVE (NEGATIVE); UROBILINOGEN,URINE NORMAL (NORMAL)
[2018-12-26 11:37] LABS: ALANINE AMINOTRANSFERASE 22 U/L (0-55); ALBUMIN 4.4 GM/DL (3.2-4.5); ALKALINE PHOSPHATASE 51 U/L (40-136); BILIRUBIN,TOTAL 0.5 MG/DL (0.1-1.0); BUN/CREATININE RATIO 21; CALCIUM 9.3 MG/DL (8.5-10.1); CARBON DIOXIDE 24 MMOL/L (21-32); CHLORIDE 105 MMOL/L (98-107); GFR ESTIMATED > 60; GLUCOSE 88 MG/DL (70-105); POTASSIUM 3.8 MMOL/L (3.6-5.0); SODIUM 139 MMOL/L (135-145); TOTAL PROTEIN 7.1 GM/DL (6.4-8.2)
[2018-12-26 12:00] LABS: AMPHETAMINE SCREEN, URINE NEGATIVE (NEGATIVE); BARBITURATE SCREEN URINE NEGATIVE (NEGATIVE); BENZODIAZEPINES SCREEN URINE POSITIVE (NEGATIVE); CANNABINOID SCREEN, URINE NEGATIVE (NEGATIVE); COCAINE SCREEN URINE NEGATIVE (NEGATIVE); METHADONE STAT NEGATIVE (NEGATIVE); METHAMPHETAMINE SCREEN URINE S NEGATIVE (NEGATIVE); OPIATE SCREEN URINE NEGATIVE (NEGATIVE); OXYCODONE STAT NEGATIVE (NEGATIVE); PROPOXYPHENE STAT NEGATIVE (NEGATIVE); TRICYCLIC ANTIDEPRESSANTS SCRE NEGATIVE (NEGATIVE)
[2018-12-26 12:02] LABS: BACTERIA,URINE MODERATE /HPF
[2018-12-26 12:11] LABS: TSH (THYROID ANALYZER) 0.36 UIU/ML (0.35-4.94)
--- NOTE | 2018-12-26 12:15 | Diagnostic Imaging Report ---
PROCEDURE: CT head and CT cervical spine without contrast. TECHNIQUE: Multiple contiguous axial images were obtained through the brain and cervical spine without the use of intravenous contrast. Sagittal and coronal reformations through the cervical spine were then performed. Indication: Altered mental status, weakness, leg pain. Comparison: Head CT 09/21/2014. Discussion: Head: No adverse interval change. No intracranial hemorrhage, mass, midline shift, or hydrocephalus. The ventricles and sulci are normal size and configuration for age. The visualized orbits, mastoid air cells, and calvarium are unremarkable. Mild mucosal thickening within the sinuses. No air-fluid level. Cervical spine: Moderate degenerative disc disease noted at the C4-C5 and C5-C6 level. No fracture or subluxation. Overall alignment is anatomic. Paraspinal soft tissues are unremarkable. Impression: 1. Stable negative head CT. 2. Negative cervical spine. Dictated by: Dictated on workstation # [id number]
--- NOTE | 2018-12-26 12:20 | Diagnostic Imaging Report ---
Indication: Generalized weakness and leg pain, altered mental status. Comparison: None. Technique: Contiguous axial images were obtained through the thoracic and lumbar spine without contrast. Discussion: No fracture identified. Chronic bilateral L5 pars defect is noted with grade 1 anterolisthesis. Mild degenerative disc disease is noted throughout the thoracic spine. Moderate degenerative disc disease is noted within the L5-S1 level. Mild facet arthropathy is noted. Mild degenerative disease within the sacroiliac joints. Paraspinal soft tissues are unremarkable. There is no obvious severe central canal stenosis on this noncontrast exam. There is no severe neural foraminal narrowing identified. Impression: 1. Chronic bilateral L5 pars defect with grade 1 anterolisthesis. 2. Mild degenerative disease within the thoracic and lumbar spine. No acute fracture otherwise. Dictated by: Dictated on workstation # [id number]
--- NOTE | 2018-12-26 12:58 | NUR ---
RESTING IN BED. DENIES NEEDS. NOTIFID HIM THAT EVERYTHING WAS BACK ET WE WERE WAITING ON
--- NOTE | 2018-12-26 13:10 | NUR ---
IN TALKING TO PT AT THIS TIME.
[2018-12-26] MEDS ORDERED: NS IV 1000 ML 1,000 ML IV ONE (13:13)
[2018-12-26 13:16] VITALS: BP 159/62
[2018-12-26 13:55] LABS: MYOGLOBIN SERUM 48.7 NG/ML (10.0-92.0)
--- NOTE | 2018-12-26 14:10 | NUR ---
UP TO BATHROOM. AMBULATING WITHOUT DIFFICULTY.
--- NOTE | 2018-12-26 14:20 | NUR ---
DR NOTIFIED PT STATES HIS ONLY PROBLEM IS CONSTIPATION AND WOULD LIKE A LAXITIVE.
[2018-12-26] MEDS ORDERED: CEPH-507 PO (14:40)
[2018-12-26] MEDS ORDERED: POLY119P5 PO (14:40)
[2018-12-26 14:54] VITALS: BP 141/108
== END 2018-12-26 14:54 | disposition home or self-care (01) ==
LOC: EDUNIT# 09:59 → ER 10:00
DX: K59.00 Constipation, unspecified (principal); N39.0 Urinary tract infection, site not specified; R26.9 Unspecified abnormalities of gait and mobility; E78.00 Pure hypercholesterolemia, unspecified; K21.9 Gastro-esophageal reflux disease without esophagitis; F41.9 Anxiety disorder, unspecified; F32.9 Major depressive disorder, single episode, unspecified; Z87.19 Personal history of other diseases of the digestive system; Z88.5 Allergy status to narcotic agent; Z88.4 Allergy status to anesthetic agent; Z79.52 Long term (current) use of systemic steroids; Z87.891 Personal history of nicotine dependence
CPT/HCPCS: 36415; 70450; 72125; 72128; 72131; 80053; 80306; 80320; 81000; 82550; 83874; 84443; 85025; 86141; 87088

== ENCOUNTER → 2019-01-07 | Outpatient (CLI) | payer MEDICARE ==
[~2019-01-07] MED LIST changes: +CEPH-507 PO; +POLY119P5 PO
--- NOTE | 2019-01-07 10:00 | Diagnostic Imaging Report ---
PROCEDURE: US Bilateral lower extremity arterial. TECHNIQUE: Multiple real-time grayscale images are obtained through both lower extremity arterial systems with color Doppler imaging and color Doppler spectral analysis. INDICATION: Peripheral arterial disease. FINDINGS: There is mild plaquing identified in the right common femoral artery. There are primarily triphasic waveforms throughout both lower extremity arterial systems. Velocities are symmetric bilaterally. No velocity elevation or stenosis is seen. No occlusion is identified. IMPRESSION: Essentially unremarkable bilateral lower extremity arterial Doppler. Dictated by: Dictated on workstation # [id number]
== END ==
LOC: RAD 08:07
DX: I73.9 Peripheral vascular disease, unspecified (principal)
CPT/HCPCS: 93925

== ENCOUNTER → 2019-01-27 | Outpatient (CLI) | payer MEDICARE ==
--- NOTE | 2019-01-27 16:05 | Diagnostic Imaging Report ---
PROCEDURE: CT abdomen and pelvis without contrast. TECHNIQUE: Multiple contiguous axial images were obtained through the abdomen and pelvis without the use of intravenous contrast. Auto Exposure Controls were utilized during the CT exam to meet ALARA standards for radiation dose reduction. INDICATION: Left lower quadrant abdominal pain. Unenhanced images of the liver and spleen reveal calcified granulomas without other focal abnormality. Incidental note is made of calcified pulmonary nodule in the right middle lobe. The gallbladder is partially contracted which limits evaluation. There is no evidence of biliary ductal dilatation. Radiopaque linear object is seen within the distal stomach. This may represent ingested material. No pancreatic or adrenal gland abnormality is identified. There is no evidence of renal calculus or hydronephrosis. No ureteric stone or dilatation is identified. There is no evidence of inflammation. No organized fluid collection is seen to indicate an abscess. Bilateral L5 spondylolyses is noted with grade 1 spondylolisthesis and associated degenerative disc disease. IMPRESSION: No acute abnormality is identified. Granulomatous residual is noted in the right lung and upper abdominal viscera. Small radiopaque object in the distal stomach or proximal duodenum may be related to recently ingested object and clinical correlation would be of use. Dictated by: Dictated on workstation # [id number]
== END ==
LOC: RAD 15:11
PROVIDERS: ATTEND Nurse Practitioner Family
DX: K66.8 Other specified disorders of peritoneum (principal); J84.10 Pulmonary fibrosis, unspecified; R10.32 Left lower quadrant pain
CPT/HCPCS: 74176

== ENCOUNTER 2019-02-02 11:59 | Day surgery (SDC) | payer MEDICARE ==
[~2019-02-02] VITALS: Ht 172.7 cm; Wt 75.0 kg
--- OUTSIDE RECORDS SUMMARY | 2019-02-02 12:06 | XMS REPORT | Continuity of Care Document ---
Author Organization Unknown Address Unknown Allergies Active Description Code Type Severity Reaction Onset Reported/Identified Relationship to Patient Clinical Status Yes NO KNOWN DRUG ALLERGIES NO KNOWN DRUG ALLERG UNKNOWN Yes codeine [id number] Drug Allergy Mild NAUSEA 03/01/2018 Yes ketamine [id number] Drug Allergy Unknown DOES NOT LIKE T 12/26/2018 Medications Medication Packaging Start Date Stop Date [...] 719.40 JOINT PAIN-UNSPEC 09/12/2014 CARLINE LEWIS DO Ot 729.1 MYALGIA AND MYOSITIS NOS 09/12/2014 CARLINE LEWIS DO Ot 780.4 DIZZINESS AND GIDDINESS 09/12/2014 CARLINE LEWIS DO Ot 780.79 OTH MALAISE FATIGUE 09/13/2014 BONI PETTY Jose Ramon INIGUEZ Ot 608.9 10/23/2014 BONI PETTY Jose Ramon INIGUEZ Ot 298.9 10/23/2014 BONI PETTY APRN Ot 789.00 12/11/2014 Ot 717.0 12/11/2014 Ot 443.89 12/11/2014 Ot 756.3 12/11/2014 BONI PETTY Jose Ramon MACHINE ENGRAVER Ot 608.9 12/11/2014 BONI PETTY Jose Ramon MACHINE ENGRAVER Ot 298.9 12/11/2014 BONI PETTY Jose Ramon MACHINE ENGRAVER Ot 789.00 01/15/2015 Ot 717.0 01/15/2015 Ot 443.89 01/15/2015 Ot 756.3 01/15/2015 BONI PETTY Jose Ramon MACHINE ENGRAVER Ot 608.9 01/15/2015 BONI PETTY APRN Ot 298.9 01/15/2015 BONI PETTY APRN Ot 789.00 01/15/2015 Ot 724.02 02/16/2015 ALEX GRANGER, JULIO Perez Ot 786.59 02/16/2015 Ot 717.0 02/16/2015 Ot 443.89 02/16/2015 Ot 756.3 02/16/2015 BONI PETTY Jose Ramon INIGUEZ Ot 608.9 02/16/2015 BONI PETTY Jose Ramon MACHINE ENGRAVER Ot 298.9 02/16/2015 BONI PETTY APRN Ot 789.00 02/16/2015 Ot 724.02 02/16/2015 LUDIN GRANGER, VIDHI Burdick Ot 721.3 02/16/2015 VIDHI NOLAND MD Ot 722.52 02/16/2015 VIDHI NOLAND MD Ot V58.69 02/16/2015 ALEX GRANGER, JULIO Perez Ot 733.42 02/16/2015 JULIO JOHNSON MD Ot 789.00 02/16/2015 JULIO JOHNSON MD Ot 786.59 02/16/2015 VIDHI NOLAND MD Ot [...] 05/08/2015 VIDHI NOLAND MD Ot V58.69 05/21/2015 VIDHI NOLAND MD Ot 721.3 05/21/2015 VIDHI NOLAND MD Ot 722.52 05/21/2015 VIDHI NOLAND MD Ot V58.69 05/21/2015 ALEX GRANGER, JULIO Perez Ot 733.42 05/21/2015 ALEX GRANGER, JULIO Perez Ot 789.00 05/21/2015 ALEX GRANGER, JULIO Perez Ot 786.59 05/24/2015 BONI PETTY MACHINE ENGRAVER Ot 780.4 06/12/2015 VIDHI NOLAND MD Ot 721.3 06/12/2015 VIDHI NOLAND MD Ot 722.52 06/12/2015 VIDHI NOLAND MD Ot V58.69 06/12/2015 ALEX GRANGER, JULIO Perez Ot 733.42 06/12/2015 ALEX GRANGER, JULIO Perez Ot 789.00 06/12/2015 JULIO JOHNSON MD Ot 786.59 07/12/2015 Ot 717.0 07/12/2015 Ot 443.89 07/12/2015 Ot 756.3 07/12/2015 BONI PETTY APRN Ot 608.9 07/12/2015 BONI PETTY MACHINE ENGRAVER Ot 298.9 07/12/2015 BONI PETTY MACHINE ENGRAVER Ot 789.00 07/12/2015 Ot 724.02 07/12/2015 VIDHI NOLAND MD Ot 721.3 07/12/2015 VIDHI NOLAND MD Ot 722.52 07/12/2015 VIDHI NOLAND MD Ot V58.69 07/12/2015 JULIO JOHNSON MD Ot 733.42 07/12/2015 JULIO JOHNSON MD Ot 789.00 07/12/2015 JULIO JOHNSON MD Ot 786.59 07/12/2015 BONI PETTY MACHINE ENGRAVER Ot 780.4 07/12/2015 VIDHI NOLAND MD Ot 721.3 07/12/2015 VIDHI NOLAND MD Ot 722.52 07/12/2015 VIDHI NOLAND MD Ot V58.69 07/13/2015 BONI PETTY MACHINE ENGRAVER Ot 780.4 07/13/2015 ALEX GRANGER, JULIO Perez Ot 786.59 07/13/2015 ALEX GRANGER, JULIO Chris Ot 733.42 07/13/2015 ALEX GRANGER, JULIO Perez [...] JULIO Perez Ot 786.59 08/07/2015 BONI PETTY MACHINE ENGRAVER Ot 780.4 08/07/2015 BONI PETTY MACHINE ENGRAVER Ot R42 08/31/2015 SIMEON FORD CPA TAX Ot M23.261 10/29/2015 SIMEON FORD CPA TAX Ot M23.261 11/13/2015 SIMEON FORD CPA TAX Ot M23.261 01/08/2016 FARHAD HERZOG MD Ot [...] Ot 756.3 RIB STERNUM ANOMAL NEC 03/20/2016 BONI PETTY APRN Ot 608.9 MALE GENITAL DIS NOS 03/20/2016 BONI PETTY APRN Ot 298.9 PSYCHOSIS NOS 03/20/2016 BONI PETTY APRN Ot 789.00 ABDOMINAL PAIN, UNSPECIFIED SITE 03/20/2016 Ot 724.02 SPINAL STENOSIS, LUMBAR REG, W/OUT NEURO 03/20/2016 Ot M48.06 SPINAL STENOSIS, LUMBAR REGION 03/20/2016 VIDHI NOLAND MD Ot 721.3 LUMBOSACRAL SPONDYLOSIS 03/20/2016 VIDHI NOLAND MD Ot 722.52 LUMB/LUMBOSAC DISC DEGEN 03/20/2016 VIDHI NOLAND MD Ot M47.817 SPONDYLS W/O MYELOPATHY OR RADICULOPATHY 03/20/2016 VIDHI NOLAND MD Ot V58.69 OTH MED,LT,CURRENT USE 03/20/2016 ALEX GRANGER, JULIO Perez Ot 733.42 ASEPTIC NECROSIS FEMUR 03/20/2016 ALEX GRANGER, JULIO Perez Ot 789.00 ABDOMINAL PAIN, UNSPECIFIED SITE 03/20/2016 ALEX GRANGER, JULIO Perez Ot 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 03/20/2016 ALEX GRANGER, JULIO Perez Ot R10.9 UNSPECIFIED ABDOMINAL PAIN 03/20/2016 ALEX GRANGER, JULIO Perez Ot 786.59 CHEST PAIN NEC 03/20/2016 BONI PETTY APRN Ot 780.4 DIZZINESS AND GIDDINESS 03/20/2016 BONI PETTY APRN Ot R42 DIZZINESS AND GIDDINESS 03/20/2016 SIMEON [facility] Ot M23.261 DERANGEMENT OF LAT MENSC DUE TO OLD TEAR 03/20/2016 MINO GRANGER, FARHAD Swanson Ot M75.111 INCOMPLETE ROTATR-CUFF TEAR/RUPTR OF R S 03/20/2016 FARHAD HERZOG MD Ot M75.112 INCOMPLETE ROTATR-CUFF TEAR/RUPTR OF L S 03/24/2016 Ot 717.0 OLD BUCKET TEAR MED MEN 03/24/2016 Ot 443.89 PERIPH VASCULAR DIS NEC 03/24/2016 Ot 756.3 RIB STERNUM ANOMAL NEC 03/24/2016 BONI PETTY MACHINE ENGRAVER Ot 608.9 MALE GENITAL DIS NOS 03/24/2016 BONI PETTY Jose Ramon MACHINE ENGRAVER Ot 298.9 PSYCHOSIS NOS 03/24/2016 BONI PETTY Jose Ramon MACHINE ENGRAVER Ot 789.00 ABDOMINAL PAIN, UNSPECIFIED SITE 03/24/2016 Ot 724.02 SPINAL STENOSIS, LUMBAR REG, W/OUT NEURO 03/24/2016 Ot M48.06 SPINAL STENOSIS, LUMBAR REGION 03/24/2016 VIDHI NOLAND MD Ot 721.3 LUMBOSACRAL SPONDYLOSIS 03/24/2016 VIDHI NOLAND MD Ot 722.52 LUMB/LUMBOSAC DISC DEGEN 03/24/2016 VIDHI NOLAND MD Ot M47.817 SPONDYLS W/O MYELOPATHY OR RADICULOPATHY 03/24/2016 VIDHI NOLAND MD Ot V58.69 OTH MED,LT,CURRENT USE 03/24/2016 ALEX GRANGER, JULIO Perez Ot 733.42 ASEPTIC NECROSIS FEMUR 03/24/2016 ALEX GRANGER, JULIO Perez Ot 789.00 ABDOMINAL PAIN, UNSPECIFIED SITE 03/24/2016 ALEX GRANGER, JULIO Perez Ot 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 03/24/2016 ALEX GRANGER, JULIO Perez Ot R10.9 UNSPECIFIED ABDOMINAL PAIN 03/24/2016 ALEX GRANGER, JULIO Perez Ot 786.59 CHEST PAIN NEC 03/24/2016 BONI PETTY Jose Ramon MACHINE ENGRAVER Ot 780.4 DIZZINESS AND GIDDINESS 03/24/2016 JOVANNY MARCIACRISTY Albright MACHINE ENGRAVER Ot R42 DIZZINESS AND GIDDINESS 03/24/2016 [facility] Ot M23.261 DERANGEMENT OF LAT MENSC DUE TO OLD TEAR 03/24/2016 MINO GRANGER, FARHAD Swanson Ot M75.111 INCOMPLETE [...] SCAR CONDITIONS AND FIBROSIS OF SKIN 03/26/2016 KEV KLINE DO Ot Z01.818 ENCOUNTER FOR OTHER PREPROCEDURAL EXAMIN 03/26/2016 KEV KLINE DO Ot Z11.2 ENCOUNTER FOR [...] RIB STERNUM ANOMAL NEC 11/17/2016 BONI PETTY MACHINE ENGRAVER Ot 608.9 MALE GENITAL DIS NOS 11/17/2016 BONI PETTY MACHINE ENGRAVER Ot 298.9 PSYCHOSIS NOS 11/17/2016 OBNI PETTY MACHINE ENGRAVER Ot 789.00 ABDOMINAL PAIN, UNSPECIFIED SITE 11/17/2016 [...] 786.59 CHEST PAIN NEC 11/17/2016 BONI PETTY MACHINE ENGRAVER Ot 780.4 DIZZINESS AND GIDDINESS 11/17/2016 BONI PETTY APRN Ot R42 DIZZINESS AND GIDDINESS 11/17/2016 FORD SIMEON Chris BORJAS Ot M23.261 DERANGEMENT OF LAT MENSC DUE TO OLD TEAR 11/17/2016 MINO GRANGER, FARHAD Swanson Ot M75.111 INCOMPLETE ROTATR-CUFF TEAR/RUPTR OF R S 11/17/2016 FARHAD HERZOG MD Ot M75.112 INCOMPLETE ROTATR-CUFF TEAR/RUPTR OF L S 11/18/2016 BONI PETTY MACHINE ENGRAVER Ot M54.5 LOW BACK PAIN 11/18/2016 BONI PETTY APRN Ot M54.6 PAIN IN THORACIC SPINE 11/27/2016 Caleb Littlejohn 883.0 OPEN WOUND OF FINGERS, WITHOUT MENTION OF COMPLICATION 11/27/2016 Caleb Littlejohn S61.052A OPEN BITE OF LEFT THUMB WITHOUT DAMAGE TO NAIL, INIT ENCNTR 11/28/2016 Iban Amador A 883.0 OPEN WOUND OF [...] Iban Amador Z23 ENCOUNTER FOR IMMUNIZATION 12/10/2016 PETTY, ASHDEN N MACHINE ENGRAVER Ot M54.5 LOW BACK PAIN 12/10/2016 JOVANNY MARCIACRISTY Albright MACHINE ENGRAVER Ot M54.6 PAIN IN THORACIC SPINE 12/11/2016 Iban Amador 883.0 OPEN WOUND OF FINGERS, WITHOUT MENTION OF COMPLICATION 12/11/2016 Iban Amador S61.052A OPEN BITE OF LEFT THUMB WITHOUT DAMAGE TO NAIL, INIT ENCNTR 12/11/2016 Iban Amador V01.5 CONTACT WITH OR EXPOSURE TO RABIES 12/11/2016 Perry Iban Lainez V05.9 NEED FOR PROPHYLACTIC VACCINATION AND INOCULATION AGAINST UNSPECIFIED SINGLE DISEASE 12/11/2016 RuyIban velázquez Z20.3 CONTACT WITH AND (SUSPECTED) EXPOSURE TO RABIES 12/11/2016 RuyIban velázquez Z23 ENCOUNTER FOR IMMUNIZATION 02/24/2018 Ot 717.0 OLD BUCKET TEAR MED MEN 02/24/2018 Ot 443.89 PERIPH VASCULAR DIS NEC 02/24/2018 Ot 756.3 RIB STERNUM ANOMAL NEC 02/24/2018 BONI PETTY MACHINE ENGRAVER Ot 608.9 MALE GENITAL DIS NOS 02/24/2018 BONI PETTY MACHINE ENGRAVER Ot 298.9 PSYCHOSIS NOS 02/24/2018 BONI PETTY MACHINE ENGRAVER Ot 789.00 ABDOMINAL PAIN, UNSPECIFIED SITE 02/24/2018 [...] Perez Ot 733.42 ASEPTIC NECROSIS FEMUR 02/24/2018 ALEX GRANGER, JULIO Perez Ot 789.00 ABDOMINAL PAIN, UNSPECIFIED SITE 02/24/2018 ALEX GRANGER, JULIO Perez Ot 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 02/24/2018 ALEX GRANGER, JULIO Perez Ot R10.9 UNSPECIFIED ABDOMINAL PAIN 02/24/2018 ALEX GRANGER, JULIO Perez Ot 786.59 CHEST PAIN NEC 02/24/2018 BONI PETTY MACHINE ENGRAVER Ot 780.4 DIZZINESS AND GIDDINESS 02/24/2018 BONI [...] RIB STERNUM ANOMAL NEC 02/24/2018 BONI PETTY MACHINE ENGRAVER Ot 608.9 MALE GENITAL DIS NOS 02/24/2018 BONI PETTY MACHINE ENGRAVER Ot 298.9 PSYCHOSIS NOS 02/24/2018 BONI PETTY MACHINE ENGRAVER Ot 789.00 ABDOMINAL PAIN, UNSPECIFIED SITE 02/24/2018 [...] PAIN, UNSPECIFIED SITE 02/24/2018 ALEX GRANGER, JULIO Perez Ot 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 [...] TEAR/RUPTR OF L S 02/24/2018 BONI PETTY MACHINE ENGRAVER Ot M54.5 LOW BACK PAIN 02/24/2018 BONI PETTY MACHINE ENGRAVER Ot M54.6 PAIN IN THORACIC SPINE 02/25/2018 [...] RIB STERNUM ANOMAL NEC 03/01/2018 BONI PETTY MACHINE ENGRAVER Ot 608.9 MALE GENITAL DIS NOS 03/01/2018 BONI PETTY MACHINE ENGRAVER Ot 298.9 PSYCHOSIS NOS 03/01/2018 BONI PETTY MACHINE ENGRAVER Ot 789.00 ABDOMINAL PAIN, UNSPECIFIED SITE 03/01/2018 Ot 724.02 SPINAL STENOSIS, LUMBAR REG, W/OUT NEURO 03/01/2018 Ot M48.06 SPINAL STENOSIS, LUMBAR REGION 03/01/2018 VIDHI NOLAND MD Ot 721.3 LUMBOSACRAL SPONDYLOSIS 03/01/2018 VIDHI NOLAND MD Ot 722.52 LUMB/LUMBOSAC DISC DEGEN 03/01/2018 VIDHI NOLAND MD Ot M47.817 SPONDYLS W/O MYELOPATHY OR RADICULOPATHY 03/01/2018 VIDHI NOLAND MD Ot V58.69 OTH MED,LT,CURRENT USE 03/01/2018 ALEX GRANGER, JULIO Perez Ot 733.42 ASEPTIC NECROSIS FEMUR 03/01/2018 ALEX GRANGER, JULIO Perez Ot 789.00 ABDOMINAL PAIN, UNSPECIFIED SITE 03/01/2018 JULIO JOHNSON MD Ot 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 03/01/2018 JULIO JOHNSON MD Ot R10.9 UNSPECIFIED ABDOMINAL PAIN 03/01/2018 JULIO JOHNSON MD Ot 786.59 CHEST PAIN NEC 03/01/2018 BONI PETTY APRN Ot 780.4 DIZZINESS AND GIDDINESS 03/01/2018 BONI PETTY APRN Ot R42 DIZZINESS AND GIDDINESS 03/01/2018 SIMEON FORD Ot M23.261 DERANGEMENT OF LAT MENSC DUE TO OLD TEAR 03/01/2018 FARHAD HERZOG MD Ot M75.111 INCOMPLETE ROTATR-CUFF TEAR/RUPTR OF R S 03/01/2018 FARHAD HERZOG MD Ot M75.112 INCOMPLETE ROTATR-CUFF TEAR/RUPTR OF L S 03/01/2018 BONI PETTY APRN Ot M54.5 LOW BACK PAIN 03/01/2018 BONI PETTY APRN Ot M54.6 PAIN IN THORACIC SPINE 03/01/2018 JITENDRA CASEY MD Ot K20.9 ESOPHAGITIS, UNSPECIFIED 03/01/2018 JITENDRA CASEY MD, Ot K25.9 GASTRIC ULCER, UNSP ACUTE OR CHRONIC, 03/01/2018 JITENDRA CASEY MD, Ot K31.9 DISEASE OF STOMACH AND DUODENUM, UNSPECI 03/01/2018 JITENDRA CASEY MD, Ot K44.9 DIAPHRAGMATIC HERNIA WITHOUT OBSTRUCTION 03/01/2018 JITENDRA CASEY MD Ot K57.30 DVRTCLOS OF LG INT W/O PERFORATION OR AB 03/01/2018 JITENDRA CASEY MD, Ot Z12.11 ENCOUNTER FOR SCREENING FOR MALIGNANT NE 03/01/2018 JITENDRA CASEY MD Ot Z80.0 FAMILY HISTORY OF MALIGNANT NEOPLASM OF 03/03/2018 JITENDRA CASEY MD Ot K20.9 ESOPHAGITIS, UNSPECIFIED 03/03/2018 JITENDRA CASEY MD, Ot K25.9 GASTRIC ULCER, UNSP ACUTE OR CHRONIC, 03/03/2018 JITENDRA CASEY MD, Ot K31.9 DISEASE OF STOMACH AND DUODENUM, UNSPECI 03/03/2018 JITENDRA CASEY MD, Ot K44.9 DIAPHRAGMATIC HERNIA WITHOUT OBSTRUCTION 03/03/2018 [...] WITH SCIATICA, RIGHT SIDE 07/23/2018 SHAVON PRUETT MD Ot M54.5 LOW BACK PAIN 07/23/2018 SHAVON PRUETT MD Ot Z87.19 PERSONAL HISTORY OF OTHER DISEASES OF TH 07/23/2018 SHAVON PRUETT MD, Ot Z87.891 PERSONAL HISTORY OF NICOTINE DEPENDENCE 07/23/2018 SHAVON PRUETT MD Ot Z88.5 ALLERGY STATUS TO NARCOTIC AGENT STATUS 07/26/2018 SHAVON PRUETT MD Ot E78.00 PURE HYPERCHOLESTEROLEMIA, UNSPECIFIED 07/26/2018 SHAVON PRUETT MD Ot F32.9 MAJOR DEPRESSIVE DISORDER, SINGLE EPISOD 07/26/2018 SHAVON PRUETT MD Ot F41.9 ANXIETY DISORDER, UNSPECIFIED 07/26/2018 SHAVON PRUETT MD Ot K21.9 GASTRO-ESOPHAGEAL REFLUX DISEASE WITHOUT 07/26/2018 [...] TO NARCOTIC AGENT STATUS 08/19/2018 SREE ZALDIVAR MACHINE ENGRAVER Ot D17.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 SITE 08/19/2018 SREE ZALDIVAR MACHINE ENGRAVER Ot M43.17 SPONDYLOLISTHESIS, LUMBOSACRAL REGION 08/19/2018 SREE ZALDIVAR MACHINE ENGRAVER Ot M51.37 OTHER INTERVERTEBRAL DISC DEGENERATION, 08/19/2018 SREE ZALDIVAR MACHINE ENGRAVER Ot M99.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 08/26/2018 SREE ZALDIVAR MACHINE ENGRAVER Ot M43.17 SPONDYLOLISTHESIS, LUMBOSACRAL REGION 08/26/2018 SREE ZALDIVAR MACHINE ENGRAVER Ot M47.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 08/26/2018 SREE ZALDIVAR MACHINE ENGRAVER Ot M47.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 08/26/2018 SREE ZALDIVAR MACHINE ENGRAVER Ot M47.816 SPONDYLOSIS W/O MYELOPATHY OR RADICULOPA 09/06/2018 SREE ZALDIVAR MACHINE ENGRAVER Ot D17.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 SITE 09/06/2018 SREE ZALDIVAR MACHINE ENGRAVER Ot M43.17 SPONDYLOLISTHESIS, LUMBOSACRAL REGION 09/06/2018 SREE ZALDIVAR MACHINE ENGRAVER Ot M51.37 OTHER INTERVERTEBRAL DISC DEGENERATION, 09/06/2018 SREE ZALDIVAR MACHINE ENGRAVER Ot M99.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 12/18/2018 CALEB LITTLEJOHN APRN Ot E78.00 PURE HYPERCHOLESTEROLEMIA, UNSPECIFIED 12/18/2018 CALEB LITTLEJOHN APRN Ot F32.9 MAJOR DEPRESSIVE DISORDER, SINGLE EPISOD 12/18/2018 CALEB LITTLEJOHN MACHINE ENGRAVER Ot F41.9 ANXIETY DISORDER, UNSPECIFIED 12/18/2018 CALEB LITTLEJOHN MACHINE ENGRAVER Ot K21.9 GASTRO-ESOPHAGEAL REFLUX DISEASE WITHOUT 12/18/2018 CALEB LITTLEJOHN MACHINE ENGRAVER Ot M54.16 RADICULOPATHY, LUMBAR REGION 12/18/2018 CALEB LITTLEJOHN APRN Ot M54.5 LOW BACK PAIN 12/18/2018 CALEB LITTLEJOHN MACHINE ENGRAVER Ot Z79.52 SENIOR LIVING (CURRENT) USE OF SYSTEMIC STER 12/18/2018 CALEB LITTLEJOHN MACHINE ENGRAVER Ot Z87.19 PERSONAL HISTORY OF OTHER DISEASES OF TH 12/18/2018 CALEB LITTLEJOHN MACHINE ENGRAVER Ot Z87.891 PERSONAL HISTORY OF NICOTINE DEPENDENCE 12/18/2018 CALEB LITTLEJOHN MACHINE ENGRAVER Ot Z88.5 ALLERGY STATUS TO NARCOTIC AGENT STATUS 12/21/2018 CALEB LITTLEJOHN APRN Ot E78.00 PURE HYPERCHOLESTEROLEMIA, UNSPECIFIED 12/21/2018 CALEB LITTLEJOHN APRN Ot F32.9 MAJOR DEPRESSIVE DISORDER, SINGLE EPISOD 12/21/2018 CALEB LITTLEJOHN APRN Ot F41.9 ANXIETY DISORDER, UNSPECIFIED 12/21/2018 CALEB LITTLEJOHN APRN Ot K21.9 GASTRO-ESOPHAGEAL REFLUX DISEASE WITHOUT 12/21/2018 CALEB LITTLEJOHN APRN Ot M54.16 RADICULOPATHY, LUMBAR REGION 12/21/2018 CALEB LITTLEJOHN MACHINE ENGRAVER Ot M54.5 LOW BACK PAIN 12/21/2018 CALEB LITTLEJOHN APRN Ot Z79.52 SENIOR LIVING (CURRENT) USE OF SYSTEMIC STER 12/21/2018 CALEB LITTLEJOHN MACHINE ENGRAVER Ot Z87.19 PERSONAL HISTORY OF OTHER DISEASES OF TH 12/21/2018 CALEB LITTLEJOHN MACHINE ENGRAVER Ot Z87.891 PERSONAL HISTORY OF NICOTINE DEPENDENCE 12/21/2018 CALEB LITTLEJOHN MACHINE ENGRAVER Ot Z88.5 ALLERGY STATUS TO NARCOTIC AGENT STATUS 12/26/2018 GARRETT GRANGER, RINA T Ot E78.00 PURE HYPERCHOLESTEROLEMIA, UNSPECIFIED 12/26/2018 GARRETT GRANGER, RINA T Ot F32.9 MAJOR DEPRESSIVE DISORDER, SINGLE EPISOD 12/26/2018 RINA TUCKER MD Ot F41.9 ANXIETY DISORDER, UNSPECIFIED 12/26/2018 BRURINA MCKEON MD, Ot K21.9 GASTRO-ESOPHAGEAL REFLUX DISEASE WITHOUT 12/26/2018 RINA TUCKER MD Ot K59.00 CONSTIPATION, UNSPECIFIED 12/26/2018 RINA TUCKER MD, Ot N39.0 URINARY TRACT INFECTION, SITE NOT SPECIF 12/26/2018 RINA TUCKER MD Ot R10.84 GENERALIZED ABDOMINAL PAIN 12/26/2018 RINA TUCKER MD Ot R26.9 UNSPECIFIED ABNORMALITIES OF GAIT AND MO 12/26/2018 RINA TUCKER MD, Ot Z79.52 SENIOR LIVING (CURRENT) USE OF SYSTEMIC STER 12/26/2018 RINA TUCKER MD Ot Z87.19 PERSONAL HISTORY OF OTHER DISEASES OF TH 12/26/2018 RINA TUCKER MD Ot Z87.891 PERSONAL HISTORY OF NICOTINE DEPENDENCE 12/26/2018 RINA TUCKER MD, Ot Z88.4 ALLERGY STATUS TO ANESTHETIC AGENT STATU 12/26/2018 RINA TUCKER MD Ot Z88.5 ALLERGY STATUS TO NARCOTIC AGENT STATUS 12/28/2018 RINA TUCKER MD Ot E78.00 PURE HYPERCHOLESTEROLEMIA, UNSPECIFIED 12/28/2018 RINA TUCKER MD Ot F32.9 MAJOR DEPRESSIVE DISORDER, SINGLE EPISOD 12/28/2018 RINA TUCKER MD, Ot F41.9 ANXIETY DISORDER, UNSPECIFIED 12/28/2018 RINA TUCKER MD Ot K21.9 GASTRO-ESOPHAGEAL REFLUX DISEASE WITHOUT 12/28/2018 RINA TUCKER MD Ot K59.00 CONSTIPATION, UNSPECIFIED 12/28/2018 RINA TUCKER MD Ot N39.0 URINARY TRACT INFECTION, SITE NOT SPECIF 12/28/2018 RINA TUCKER MD Ot R10.84 GENERALIZED ABDOMINAL PAIN 12/28/2018 RINA TUCKER MD Ot R26.9 UNSPECIFIED ABNORMALITIES OF GAIT AND MO 12/28/2018 RINA TUCKER MD Ot Z79.52 SENIOR LIVING (CURRENT) USE OF SYSTEMIC STER 12/28/2018 RINA TUCKER MD Ot Z87.19 PERSONAL HISTORY OF OTHER DISEASES OF TH 12/28/2018 GARRETT GRANGER, RINA Rodriguez Ot Z87.891 PERSONAL HISTORY OF NICOTINE DEPENDENCE 12/28/2018 RINA TUCKER MD, Ot Z88.4 ALLERGY STATUS TO ANESTHETIC AGENT STATU 12/28/2018 RINA TUCKER MD, Ot Z88.5 ALLERGY STATUS TO NARCOTIC AGENT STATUS 12/30/2018 SREE ZALDIVAR APRN Ot M43.17 SPONDYLOLISTHESIS, LUMBOSACRAL REGION 12/30/2018 SREE ZALDIVAR APRN Ot M51.36 OTHER INTERVERTEBRAL DISC DEGENERATION, 01/03/2019 ALEX GRANGER, JULIO D Ot I73.9 PERIPHERAL VASCULAR DISEASE, UNSPECIFIED 01/07/2019 ALEX GRANGER, JULIO D Ot I73.9 PERIPHERAL VASCULAR DISEASE, UNSPECIFIED 01/07/2019 ALEX GRANGER JULIO D Ot I73.9 PERIPHERAL VASCULAR DISEASE, UNSPECIFIED 01/07/2019 ALEX GRANGER, JULIO D Ot I73.9 PERIPHERAL VASCULAR DISEASE, UNSPECIFIED 01/10/2019 ALEX GRANGER, JULIO D Ot I73.9 PERIPHERAL VASCULAR DISEASE, UNSPECIFIED 01/21/2019 ALEX GRANGER, JULIO D Ot I73.9 PERIPHERAL VASCULAR DISEASE, UNSPECIFIED 01/28/2019 SREE ZALDIVAR APRN Ot J84.10 PULMONARY FIBROSIS, UNSPECIFIED 01/28/2019 SREE ZALDIVAR APRN Ot K66.8 OTHER SPECIFIED DISORDERS OF PERITONEUM 01/28/2019 SREE ZALDIVAR APRN Ot R10.32 LEFT LOWER QUADRANT PAIN Procedures There is no data. Results Test [...] plasma ethanol measurement (mass/volume) < mg/dL <10 Complete blood count (CBC) with automated white blood cell (WBC) differential - 12/26/18 11:10 Blood leukocytes automated count (number/volume) 10.1 10*3/uL 4.3-11.0 Blood erythrocytes automated count (number/volume) 4.48 10*6/uL 4.35-5.85 Venous blood hemoglobin measurement (mass/volume) 15.4 g/dL 13.3-17.7 Blood hematocrit (volume fraction) 43 % 40-54 Automated erythrocyte mean corpuscular volume 95 [foz_us] 80-99 Automated erythrocyte mean corpuscular hemoglobin (mass per erythrocyte) 34 pg 25-34 Automated erythrocyte mean corpuscular hemoglobin concentration measurement ( mass/volume) 36 g/dL 32-36 Automated erythrocyte distribution width ratio 12.1 % 10.0-14.5 Automated blood platelet count (count/volume) 219 10*3/uL 130-400 Automated blood platelet mean volume measurement 10.3 [foz_us] 7.4-10.4 Automated blood neutrophils/100 leukocytes 67 % 42-75 Automated blood lymphocytes/100 leukocytes 17 % 12-44 Blood monocytes/100 leukocytes 13 % 0-12 Automated blood eosinophils/100 leukocytes 2 % 0-10 Automated blood basophils/100 leukocytes 1 % 0-10 Blood neutrophils automated count (number/volume) 6.7 10*3 1.8-7.8 Blood lymphocytes automated count (number/volume) 1.8 10*3 1.0-4.0 Blood monocytes automated count (number/volume) 1.3 10*3 0.0-1.0 Automated eosinophil count 0.2 10*3/uL 0.0-0.3 Automated blood basophil count (count/volume) 0.1 10*3/uL 0.0-0.1 Comprehensive metabolic panel - 12/26/18 11:10 Serum or plasma sodium measurement (moles/volume) 139 mmol/L 135-145 Serum or plasma potassium measurement (moles/volume) 3.8 mmol/L 3.6-5.0 Serum or plasma chloride measurement (moles/volume) 105 mmol/L 98-107 Carbon dioxide 24 mmol/L 21-32 Serum or plasma anion gap determination (moles/volume) 10 mmol/L 5-14 Serum or plasma urea nitrogen measurement (mass/volume) 19 mg/dL 7-18 Serum or plasma creatinine measurement (mass/volume) 0.90 mg/dL 0.60-1.30 Serum or plasma urea nitrogen/creatinine mass ratio 21 NRG Serum or plasma creatinine measurement with calculation of estimated glomerular filtration rate > NRG Serum or plasma glucose measurement (mass/volume) 88 mg/dL 70-105 Serum or plasma calcium measurement (mass/volume) 9.3 mg/dL 8.5-10.1 Serum or plasma total bilirubin measurement (mass/volume) 0.5 mg/dL 0.1-1.0 Serum or plasma alkaline phosphatase measurement (enzymatic activity/volume) 51 U/L 40-136 Serum or plasma aspartate aminotransferase measurement (enzymatic activity/ volume) 22 U/L 5-34 Serum or plasma alanine aminotransferase measurement (enzymatic activity/volume ) 22 U/L 0-55 Serum or plasma protein measurement (mass/volume) 7.1 g/dL 6.4-8.2 Serum or plasma albumin measurement (mass/volume) 4.4 g/dL 3.2-4.5 CALCIUM CORRECTED 9.0 mg/dL 8.5-10.1 Serum or plasma thyrotropin measurement by detection limit <=0.05 miu/l (units/ volume) - 12/26/18 11:10 Serum or plasma thyrotropin measurement by detection limit <=0.05 miu/l (units/ volume) 0.36 u[iU]/mL 0.35-4.94 Serum or plasma C reactive protein measurement (mass/volume) - 12/26/18 11:10 Serum or plasma C reactive protein measurement (mass/volume) 0.04 mg /dL 0.00-0.50 Serum or plasma ethanol measurement (mass/volume) - 12/26/18 11:10 Serum or plasma ethanol measurement (mass/volume) < mg/dL <10 Serum or plasma creatine kinase measurement (enzymatic activity/volume) - 12/26 11:10 Serum or plasma creatine kinase measurement (enzymatic activity/volume) 96 U/L 30-200 Myoglobin, serum - 12/26/18 11:10 Myoglobin, serum 48.7 ng/mL 10.0-92.0 Urine drug screening test - 12/26/18 11:16 Urine phencyclidine detection by screening method NEGATIVE [...] NEGATIVE NEGATIVE Urine propoxyphene detection NEGATIVE NEGATIVE Complete urinalysis with reflex to culture - 12/26/18 11:16 Urine color determination YELLOW NRG Urine clarity determination CLEAR NRG Urine pH measurement by test strip 7 5-9 Specific gravity of urine by test strip 1.015 1.016- 1.022 Urine protein assay by test [...] detection in urine sediment by light microscopy MODERATE NRG Crystals detection in urine sediment by light microscopy NONE NRG Casts detection in urine sediment by light microscopy NONE NRG Mucus detection in urine sediment by light microscopy MODERATE NRG Complete urinalysis with reflex to culture NO NRG Bacterial urine culture - 12/26/18 11:16 Bacterial urine culture NG NRG Encounters ACCT No. Visit Date/Time Discharge Status Pt. Type Provider Facility Loc./Unit Complaint [id number] 01/27/2019 15:11:00 01/27/2019 23:59:59 CLS Outpatient SREE ZALDIVAR APRN [facility] RAD LLQ PAIN [id number] 01/07/2019 08:07:00 01/07/2019 23:59:59 CLS Outpatient ALEX GRANGER, JULIO Perez [facility] PERIPHERAL ARTERIAL OCCLUSIVE DISEASE. [id number] 12/26/2018 10:00:00 12/26/2018 14:54:00 DIS Emergency GARRETT GRANGER, RINA Rodriguez [facility] ER ABD PAIN,ULCER SYMPTOMS [id number] 12/24/2018 09:29:00 12/24/2018 23:59:59 CLS Outpatient SREE ZALDIVAR APRN [facility] RAD M51.36 [id number] 12/18/2018 19:54:00 12/18/2018 21:54:00 DIS Emergency CALEB LITTLEJOHN MACHINE ENGRAVER [facility] ER SEVERE LEG PAIN [id number] 08/18/2018 10:00:00 08/18/2018 23:59:59 CLS Outpatient SREE ZALDIVAR APRN [facility] RAD LOW BACK PAIN [id number] 08/09/2018 10:08:00 08/09/2018 23:59:59 CLS Outpatient SREE ZALDIVAR APRN [facility] RAD LOW BACK PAIN [id number] 07/23/2018 08:57:00 07/23/2018 11:05:00 DIS Emergency FLYNN GRANGER, SHAVON Acuña [facility] ER BACK PAIN [id number] 03/01/2018 09:13:00 03/01/2018 14:20:00 DIS Outpatient JITENDRA CASEY MD Via [facility] ENDO SCREENING/GERD [id number] 02/24/2018 05:37:00 02/24/2018 10:39:00 DIS Outpatient JITENDRA CASEY MD Via [facility] PREOP COLONOSCOPY/EGD [id number] 11/17/2016 09:44:00 11/17/2016 23:59:59 CLS Outpatient BONI PETTY APRN [facility] RAD LOW BACK PAIN, THORACIC BACK PAIN [id number] 03/27/2016 07:15:00 03/27/2016 12:55:00 DIS Outpatient KEV KLINE DO Via [facility] SDC PAINFUL SCAR LEFT UPPER EXTREMITY [id number] 03/24/2016 15:23:00 03/24/2016 16:00:00 DIS Outpatient KEV KLINE DO Via [facility] PREOP PAINFUL SCAR LEFT UPPER EXTREMITY [id number] 12/18/2015 10:01:00 12/18/2015 23:59:59 CLS Outpatient MINO GRANGER, FARHAD Swanson Via [facility] RAD RT AND LEFT SHOULDER RTC TEAR [id number] 08/07/2015 15:25:00 08/07/2015 23:59:59 CLS Outpatient SIMEON FORD Via [facility] RAD RT KNEE LATERAL MENISCUS TEAR [id number] 08/03/2015 08:42:00 08/03/2015 09:53:00 DIS Outpatient LUDIN GRANGER, VIDHI Burdick [facility] CARD INTREVETREBRAL DISC DISPLACEMENT LUMBAR REGION [id number] 05/03/2015 09:28:00 05/03/2015 23:59:59 CLS Outpatient BONI PETTY APRN [facility] RAD DIZZINESS [id number] 04/26/2015 15:54:00 04/26/2015 17:12:00 DIS Emergency NOEL DOYLE MD [facility] ER CP,DIZZINESS [id number] 04/13/2015 20:23:00 04/13/2015 21:50:00 DIS Emergency JULI DAWN MD [facility] ER POSSIBLE STROKE [id number] 01/23/2015 12:54:00 01/23/2015 23:59:59 CLS Outpatient JULIO JOHNSON MD [facility] RAD CHEST PAIN [id number] 01/18/2015 11:19:00 01/18/2015 23:59:59 CLS Outpatient JULIO JOHNSON MD [facility] RAD ABDOMINAL PAIN [id number] 01/15/2015 12:32:00 01/15/2015 23:59:59 CLS Outpatient VIDHI NOLAND MD [facility] CARD DDD [id number] 09/21/2014 11:48:00 09/21/2014 23:59:59 CLS Outpatient BONI PETTY APRN [facility] RAD CONFUSION,DIZZINESS, ABD PAIN [id number] 09/12/2014 12:38:00 09/12/2014 15:10:00 DIS Emergency CARLINE LEWIS DO Via [facility] ER BODYACHES [id number] 08/16/2014 11:59:00 08/16/2014 23:59:59 CLS Outpatient BONI PETTY APRN [facility] RAD PAIN IN TESTICLES [id number] 02/02/2019 11:59:00 ACT Outpatient RAIN BURTON MD [facility] ENDO REFLUX [id number] 12/11/2014 08:16:00 Document Registration [id number] 09/12/2014 12:38:00 Document Registration [id number] 12/20/2012 15:43:00 Document Registration [id number] 11/06/2012 17:02:00 Document Registration [id number] 09/16/2012 13:17:00 Document Registration [id number] 10/30/2011 20:25:00 Document Registration [id number] 03/30/2018 08:30:00 03/30/2018 23:59:59 CLS Outpatient RUTHANN LAN LAC [facility] [id number] 12/11/2016 09:17:00 12/11/2016 09:35:00 DIS Outpatient Iban Amador [id number] 12/04/2016 08:48:00 12/04/2016 09:00:00 DIS Outpatient Iban Amador [id number] 11/30/2016 08:34:00 11/30/2016 08:48:00 DIS Outpatient Iban Amador [id number] 11/28/2016 09:16:00 11/28/2016 10:20:00 DIS Outpatient Iban Amador [id number] 11/27/2016 09:16:00 11/27/2016 10:50:00 [id number] 11/27/2016 09:35:22 Document Registration [id number] 05/03/2015 09:29:17 ACT Document Registration
--- NOTE | 2019-02-02 12:14 | Conscious Sedation/ASA ---
Conscious Sedation Pre-Proced Time 12:00 ASA Score 2 For ASA 3 and 4: Consider anesthesia and medical clearance. Also, for patients with a history of failed moderate sedation consider anesthesia. Airway Lungs Heart ASA score ASA 1: a normal healthy patient ASA 2: a patient with a mild systemic disease (mid diabetes, controlled hypertension, obesity ASA 3: a patient with a severe systemic disease that limits activity (angina , COPD, prior Myocardial infarction) ASA 4: a patient with an incapacitating disease that is a constant threat to life (CHF, renal failure) ASA 5: a moribund patient not expected to survive 24 hrs. (ruptured aneurysm) ASA 6: a declared brain- patient whose organs are being harvested. For emergent operations, add the letter E after the classification Mallampati Classification Grade 2 Sedation Plan Analgesia, Amnesia, Plan communicated to team members, Discussed options with patient/fam, Discussed risks with patient/fam The patient is an appropriate candidate to undergo the planned procedure, sedation, and anesthesia. The patient immediately re-assessed prior to indication. RAIN BURTON MD Feb 02, 2019 12:14
[2019-02-02] MEDS ORDERED: morphine INJ 10 MG/ML 1ML (SYR OR VIAL) IV PRN (12:15)
[2019-02-02] MEDS ORDERED: ONDANSETRON 4 MG/2 ML (SDV) Z0FRAN IV PRN (12:15)
[2019-02-02] MEDS ORDERED: HYDROcodone/APAP 5 MG/325 MG (LORTAB) TAB PO PRN (12:15)
[2019-02-02] MEDS ORDERED: ACETAMINOPHEN 325 MG TABLET PO PRN (12:15)
--- NOTE | 2019-02-02 12:15 | Progress Note-Pre Operative ---
Pre-Operative Progress Note H&P Reviewed The H&P was reviewed, patient examined and no changes noted. Date Seen by Provider: Feb 02, 2019 Time Seen by Provider: 12:00 Date H&P Reviewed: Feb 02, 2019 Time H&P Reviewed: 12:00 Pre-Operative Diagnosis: abd pain, gastric/duo FB RANI BURTON MD Feb 02, 2019 12:15
--- NOTE | 2019-02-02 12:16 | Discharge Inst-Surgical ---
D/C Lap Instructions-JOSEPHINE Follow Up Activity as tolerated High Fiber Diet 25g or more per day Avoid Alcohol, Caffeine, Spicy [place] and Acid foods. Drink 64 fluid oz or more of fluids per day. Symptoms to Report: Fever over 101 degree F, Nausea/Vomiting If any problems/questions: Contact your physician or go to Emergency Room RAIN BURTON MD Feb 02, 2019 12:16
[2019-02-02] MEDS ORDERED: NS IV 500 ML 500 ML IV PRN (12:27)
[2019-02-02] MEDS ORDERED: NS IV 500 ML 500 ML ONE (12:28)
[2019-02-02] MEDS ORDERED: fentaNYL INJECTION 100 MCG/2 ML AMP IVP ONE (12:30)
[2019-02-02] MEDS ORDERED: LIDOCAINE JELLY 2% 6 ML SYRINGE MM PRN (12:30)
[2019-02-02] MEDS ORDERED: MIDAZOLAM 2 MG/2 ML (VERSED) VIAL IVP ONE (12:30)
[2019-02-02] MEDS ORDERED: HURRICAINE EXT TUBE (BENZOCAINE) XX PRN (12:30)
[2019-02-02 12:31] VITALS: BP 146/94
[2019-02-02] MEDS ORDERED: ESOM40CA52 PO (13:22)
[2019-02-02] MEDS ORDERED: OFLO5DRO3 OP (13:22)
[2019-02-02] MEDS ORDERED: BACL20TA PO (13:22)
[2019-02-02] MEDS ORDERED: SUCR1TAB36 PO (13:22)
[2019-02-02] MEDS ORDERED: MULT1TAB69 PO (13:22)
[2019-02-02] MEDS ORDERED: OMEG-154 PO (13:22)
[2019-02-02] MEDS ORDERED: FLUV50TA3 PO (13:22)
[2019-02-02] MEDS ORDERED: PRED5DRO24 OP (13:22)
[2019-02-02] MEDS ORDERED: TRAZ150T72 PO (13:22)
[2019-02-02] MEDS ORDERED: SIMV40TA4 PO (13:22)
[2019-02-02] MEDS ORDERED: POTA2TAB5 PO (13:22)
[2019-02-02] MEDS ORDERED: DIAZ5TAB3 PO (13:22)
[2019-02-02] MEDS ORDERED: LIDOCAINE JELLY 2% 6 ML SYRINGE ONE (14:35)
[2019-02-02] MEDS ORDERED: MIDAZOLAM 2 MG/2 ML (VERSED) VIAL ONE ×5 (14:36→15:09)
[2019-02-02] MEDS ORDERED: fentaNYL INJECTION 100 MCG/2 ML AMP ONE ×2 (14:36)
[2019-02-02] MEDS ORDERED: HURRICAINE EXT TUBE (BENZOCAINE) ONE (14:37)
[2019-02-02] MEDS ORDERED: proPOfol 200 MG/20 ML (DIPRIVAN) VIAL IV ONE (15:08)
--- NOTE | 2019-02-02 15:40 | Anesthesia-Procedure Note ---
Procedures/Interventions Procedure Start/Stop/Diagnosis Date of Procedure: Feb 02, 2019 Start Time: 15:10 Referring Physician: giovanni Stop Time: 15:35 Additional Procedures Procedures Called to Endo for rescue sedation. Staff unable to sedate patient enough to preform procedure. Patient given 2mg of versed and 100mg of propofol for procedure. Tolerated procedure well. Care to endo staff. All VS per endo staff. JOSE VIDES CRNA Feb 02, 2019 15:40
--- NOTE | 2019-02-02 15:41 | Anesthesia-General Post-Op ---
MAC Patient Condition Mental Status/LOC: Same as Preop Cardiovascular: Satisfactory Nausea/Vomiting: Absent Respiratory: Satisfactory Pain: Controlled Complications: Absent Post Op Complications Complications None Follow Up Care/Instructions Patient Instructions None needed. Anesthesiology Discharge Order Discharge Order Patient is doing well, no complaints, stable vital signs, no apparent adverse anesthesia problems. No complications reported per nursing. JOSE VIDES CRNA Feb 02, 2019 15:41
--- NOTE | 2019-02-02 15:43 | Progress Note-Post Operative ---
Post-Operative Progess Note Surgeon (s)/Smasher (s) Surgeon RAIN BURTON MD Smasher: none Pre-Operative Diagnosis abd pain, gastric/duo FB Post-Operative Diagnosis reflux esophagitis(stage 2), small HH(1.5cm), moderate gastritis with patch of inflammation at antral-pyloric border, no FB or distal obstructions. Procedure & Operative Findings Date of Procedure 02/02/19 Procedure Performed/Findings EGD with bx. Anesthesia Type MAC Estimated Blood Loss Estimated blood loss (mL): minimal Specimens/Packing Specimens Removed ge jxn, antrum RAIN BURTON MD Feb 02, 2019 15:43
[2019-02-02 15:50] VITALS: BP 117/66
[2019-02-02 16:14] VITALS: BP 110/69
[2019-02-02 16:15] VITALS: BP 110/69
--- NOTE | 2019-02-03 01:52 | OPERATIVE REPORT ---
DATE OF SERVICE: 02/02/2019 ATTENDING PRIMARY CARE PHYSICIAN: Martin Fermin MD. PREOPERATIVE DIAGNOSES: Abdominal pain, foreign body gastroduodenum on a recent CT scan. POSTOPERATIVE DIAGNOSES: Reflux esophagitis stage II, small hiatal hernia approximately 1.5 cm in size, moderate gastritis with a patch of inflammation at the antral-pyloric region. No formal ulcerations. We were able to get the scope to the distal duodenum with no foreign body identified. PROCEDURE: EGD with biopsy. SURGEON: Rain Burton MD. ANESTHESIA: Conscious sedation. ESTIMATED BLOOD LOSS: Minimal. FINDINGS: As above in the postop. DISPOSITION: The patient tolerated the procedure well. INDICATIONS: The patient is a 63-year-old male who was referred over to us for chronic pain in the left abdomen for the past year. He has a multitude of previous medical problems including psychiatric disorders based on his medications; however, he cannot verbalize what they are. Due to the pain, he did undergo a CT scan 6 days ago, which did show significant amount of stool throughout the colon, which is the most likely etiology of his chronic abdominal pain. The CT scan also did show a radiopaque object. It appears to be in the distal stomach versus the duodenum. We cannot tell what this is at this time. He is not showing any signs of obstruction and does tolerate a regular diet and has had multiple bowel movements and states that he did take MiraLax yesterday and had multiple looser stools throughout last night as well as this morning. DESCRIPTION OF PROCEDURE: The patient was brought to the endoscopy suite, laid in the left lateral decubitus position with head slightly elevated. After adequate IV pain and sedative medications and monitored anesthesia care, the mouthpiece was applied. The endoscope was placed in the mouth, visualizing the pharynx and hypopharyngeal region. Vocal cords, epiglottis and vallecula identified and appeared to be normal. The endoscope was then gently debride the esophageal opening and esophagus insufflated. The scope was then advanced to the first, second and third portion of the esophagus at the level of the GE junction. A reflux esophagitis stage II identified. There were no ulcers or strictures identified in this region. A biopsy was taken with forceps with visualization of good hemostasis. The endoscope was then advanced in the stomach and endoscope retroflexed, visualizing a small hiatal hernia approximately 1.5 cm in size. Moderate gastritis was noted; however, there was a patch of inflammation at the antral-pyloric region. This was biopsied with forceps with visualization of good hemostasis. The endoscope was then advanced to the pylorus and up to the third or fourth portion of the duodenum, which appeared normal with no foreign body as well as no distal obstructions. The endoscope was slowly withdrawn while taking a second look and suctioning residual air with no additional findings. The patient tolerated the procedure well. We will continue conservative management and recommend a high fiber diet with at least 30 grams of fiber daily as well as significant amounts of water to promote soft stools on a daily basis. We will get a followup CT scan to see if this lesion persists or has moved distally or is purely an artifact. Job ID: [id number] DocumentID: [id number] Dictated Date: 02/02/2019 15:37:55 Courtesy Van Driver Date: 02/03/2019 01:51:58 Dictated By: RAIN BURTON MD MTDD
== END 2019-02-02 16:15 | disposition home or self-care (01) ==
LOC: ENDO 11:59
PROVIDERS: ATTEND Surgery
DX: K21.0 Gastro-esophageal reflux disease with esophagitis (principal); K44.9 Diaphragmatic hernia without obstruction or gangrene; K29.50 Unspecified chronic gastritis without bleeding; E78.00 Pure hypercholesterolemia, unspecified; F41.9 Anxiety disorder, unspecified; F33.9 Major depressive disorder, recurrent, unspecified; Z87.891 Personal history of nicotine dependence; Z79.899 Other long term (current) drug therapy
CPT/HCPCS: 88305

== ENCOUNTER 2019-07-19 08:31 | Outpatient (CLI) | payer MEDICARE ==
[~2019-07-19] VITALS: Ht 172.7 cm; Wt 74.9 kg
[~2019-07-19 08:31] MED LIST changes: +DIAZ5TAB3 PO; +ESOM40CA52 PO; +MULT1TAB69 PO; +OFLO5DRO3 OP; +OMEG-154 PO; +POTA2TAB5 PO; +PRED5DRO24 OP; +SIMV40TA4 PO; +SUCR1TAB36 PO; +TRAZ150T72 PO
[2019-07-19] MEDS ORDERED: QUET50TA55 PO (09:05)
[2019-07-19] MEDS ORDERED: DIAZ10TA3 PO (09:05)
[2019-07-19] MEDS ORDERED: PANT40TA3 PO (09:05)
[2019-07-19] MEDS ORDERED: QUET25TA73 PO (09:05)
[2019-07-19] MEDS ORDERED: MELO15TA39 PO (09:05)
== END 2019-07-19 09:06 | disposition home or self-care (01) ==
LOC: PREOP 08:31
PROVIDERS: ATTEND Surgery
DX: Z01.818 Encounter for other preprocedural examination (principal)

== ENCOUNTER 2019-07-20 12:34 | Day surgery (SDC) | payer MEDICARE ==
[2019-07-20] VITALS (7 sets, daily range): BP systolic 96–141; BP diastolic 65–101
[~2019-07-20] VITALS: Ht 172.7 cm; Wt 74.9 kg
[~2019-07-20 12:34] MED LIST changes: +MELO15TA39 PO; +PANT40TA3 PO; +QUET25TA73 PO; +QUET50TA55 PO
[2019-07-20] MEDS ORDERED: LACTATED RINGERS 1,000 ML IV ONE ×2 (12:50→14:13)
[2019-07-20] MEDS: LACTATED RINGERS 1,000 ML IV PRN ×2 (12:55→14:15)
[2019-07-20] MEDS ORDERED: LIDOCAINE JELLY 2% 6 ML SYRINGE MM PRN (13:15)
--- NOTE | 2019-07-20 13:28 | Conscious Sedation/ASA ---
Conscious Sedation Pre-Proced Time 13:00 ASA Score 2 For ASA 3 and 4: Consider anesthesia and medical clearance. Also, for patients with a history of failed moderate sedation consider anesthesia. Airway Lungs Heart ASA score ASA 1: a normal healthy patient ASA 2: a patient with a mild systemic disease (mid diabetes, controlled hypertension, obesity ASA 3: a patient with a severe systemic disease that limits activity (angina, COPD, prior Myocardial infarction) ASA 4: a patient with an incapacitating disease that is a constant threat to life (CHF, renal failure) ASA 5: a moribund patient not expected to survive 24 hrs. (ruptured aneurysm) ASA 6: a declared brain- patient whose organs are being harvested. For emergent operations, add the letter E after the classification Mallampati Classification Grade 2 Sedation Plan Analgesia, Amnesia, Plan communicated to team members, Discussed options with patient/fam, Discussed risks with patient/fam The patient is an appropriate candidate to undergo the planned procedure, sedation, and anesthesia. The patient immediately re-assessed prior to indication. RAIN BURTON MD Jul 20, 2019 13:28
--- NOTE | 2019-07-20 13:28 | Progress Note-Pre Operative ---
Pre-Operative Progress Note H&P Reviewed The H&P was reviewed, patient examined and no changes noted. Date Seen by Provider: Jul 20, 2019 Time Seen by Provider: 13:00 Date H&P Reviewed: Jul 20, 2019 Time H&P Reviewed: 13:00 Pre-Operative Diagnosis: screening, heme positive stool RAIN BURTON MD Jul 20, 2019 13:28
[2019-07-20] MEDS ORDERED: ONDANSETRON 4 MG/2 ML (SDV) Z0FRAN IVP PRN (13:30)
[2019-07-20] MEDS ORDERED: ACETAMINOPHEN 325 MG TABLET PO PRN (13:30)
[2019-07-20] MEDS ORDERED: HYDROcodone/APAP 5 MG/325 MG (LORTAB) TAB PO PRN (13:30)
[2019-07-20] MEDS ORDERED: morphine INJ 10 MG/ML 1ML (SYR OR VIAL) IVP PRN ×2 (13:30)
--- NOTE | 2019-07-20 13:30 | Discharge Inst-Surgical ---
D/C Lap Instructions-JOSEPHINE Follow Up Activity as tolerated High Fiber Diet 25g or more per day Avoid Alcohol, Caffeine, Spicy [place] and Acid foods. Drink 64 fluid oz or more of fluids per day. Symptoms to Report: Fever over 101 degree F, Nausea/Vomiting If any problems/questions: Contact your physician or go to Emergency Room RAIN BURTON MD Jul 20, 2019 13:30
[2019-07-20] MEDS ORDERED: SUCCINYLCHOLINE INJ 100 MG/5 ML SYR ONE (14:04)
[2019-07-20] MEDS ORDERED: MIDAZOLAM 5 MG/5 ML (VERSED) VIAL ONE (14:04)
[2019-07-20] MEDS ORDERED: PROPOFOL INJECTION 50 ML IV ONE ×2 (14:04→14:58)
[2019-07-20] MEDS ORDERED: GLYCOPYRROLATE 0.2 MG/ML (ROBINUL) 2 ML VIAL ONE (14:19)
[2019-07-20] MEDS ORDERED: LIDOCAINE JELLY 2% 6 ML SYRINGE ONE (14:54)
--- NOTE | 2019-07-20 15:34 | Progress Note-Post Operative ---
Post-Operative Progess Note Surgeon (s)/Wire Coiler (s) Surgeon RAIN BURTON MD Wire Coiler: none Pre-Operative Diagnosis screening, heme positive stool Post-Operative Diagnosis mild chronic stage 2 ext and int hemorrhoids. Procedure & Operative Findings Date of Procedure 07/20/19 Procedure Performed/Findings colonoscopy Anesthesia Type mac Estimated Blood Loss Estimated blood loss (mL): minimal Specimens/Packing Specimens Removed none RAIN BURTON MD Jul 20, 2019 15:34
--- NOTE | 2019-07-20 16:43 | OPERATIVE REPORT ---
DATE OF SERVICE: 07/20/2019 ATTENDING PRIMARY CARE PHYSICIAN: Martin Fermin MD PREOPERATIVE DIAGNOSIS: Hemoccult positive stools. POSTOPERATIVE DIAGNOSIS: Mild chronic stage II external and internal hemorrhoids. Remainder of the rectum and colon were normal. PROCEDURE: Colonoscopy. SURGEON: Rain Velazquez MD. ANESTHESIA: Monitored anesthesia care. ESTIMATED BLOOD LOSS: Minimal. FINDINGS: Mild chronic stage II external and internal hemorrhoids. Remainder of the rectum and colon were normal. DISPOSITION: The patient tolerated the procedure well. INDICATIONS: The patient is a 64-year-old male who known to us. We had seen him before for chronic abdominal pain. We had done an EGD on him earlier this year with findings of reflux esophagitis, stage II, small hiatal hernia 1.5 cm in size as well as a moderate gastritis. Biopsies were negative for H. pylori as well as negative for Feng's esophagus. He is now in need of a colonoscopy. He is unsure when his last colonoscopy was. He has had issues with constipation in the past as well as mild pain in the left lower abdominal quadrant. Hemoccult test was done recently, which was positive. DESCRIPTION OF PROCEDURE: The patient was brought to the endoscopy suite, laid in left lateral decubitus position. After adequate IV pain and sedative medications and monitored anesthesia care, a digital rectal examination was performed. Mild chronic stage II external and internal hemorrhoids were identified, which were not actively edematous nor inflamed and no bleeding. Normal sphincter tone was felt and there were no palpable masses. Prostate gland was palpable and appeared normal. The endoscope was then intubated to the anus and rectum gently insufflated. The endoscope was then advanced to the valves of [place] of rectum with no polyps or any neoplasms identified. The endoscope was then advanced through the sigmoid colon where no diverticulosis identified. The endoscope was then advanced to the remainder of the descending, transverse and ascending colon to the cecum. These segments were normal. There were no polyps or any neoplasms identified throughout the colon or rectum. Endoscope was then slowly withdrawn while taking a second look and suctioning of residual air with no additional findings. The patient tolerated the procedure well. We will recommend medical management with a high fiber diet with at least 30 grams of fiber daily as well as significant amounts of water to promote soft stools on a daily basis. He does not have a family history of colon cancer and if he is asymptomatic, he may wait 10 years for his next colonoscopy. Job ID: [id number] DocumentID: [id number] Dictated Date: 07/20/2019 15:26:38 Funnel Setter Date: 07/20/2019 16:43:16 Dictated By: RAIN VELAZQUEZ MD MTDD
== END 2019-07-20 16:00 | disposition home or self-care (01) ==
LOC: ENDO 12:34
PROVIDERS: ATTEND Surgery
DX: K64.8 Other hemorrhoids (principal); K64.1 Second degree hemorrhoids; K21.0 Gastro-esophageal reflux disease with esophagitis; K44.9 Diaphragmatic hernia without obstruction or gangrene; E78.5 Hyperlipidemia, unspecified; G62.9 Polyneuropathy, unspecified; E78.00 Pure hypercholesterolemia, unspecified; F41.8 Other specified anxiety disorders; Z88.5 Allergy status to narcotic agent; Z88.8 Allergy status to other drugs, medicaments and biological substances; Z87.891 Personal history of nicotine dependence
CPT/HCPCS: 82962

== ENCOUNTER → 2019-09-29 | Outpatient (CLI) | payer MEDICARE ==
--- NOTE | 2019-09-29 16:17 | Diagnostic Imaging Report ---
INDICATION: Fall from tree. Rib pain. COMPARISON: None. FINDINGS: Three views of the three ribs were obtained. There is no fracture, dislocation, or other acute bony abnormality identified. Visualized portions of the left lung are clear. The surrounding soft tissues appear unremarkable. No radiopaque foreign bodies are seen. IMPRESSION: No healing or displaced left rib fractures. Dictated by: Dictated on workstation # [id number]
== END ==
LOC: RAD 14:32
DX: R07.81 Pleurodynia (principal); W14.XXXA Fall from tree, initial encounter
CPT/HCPCS: 71100

== ENCOUNTER → 2019-12-14 | Outpatient (CLI) | payer MEDICARE ==
[~2019-12-14] MED LIST changes: -DIAZ5TAB3 PO; +DIAZ5TAB49 PO; +SIMV20TA26 PO; -SIMV20TA3 PO; +SIMV40TA25 PO; -SIMV40TA4 PO; -TRAM50TA2 PO
--- NOTE | 2019-12-14 12:01 | Diagnostic Imaging Report ---
Indication: Neck pain Cervical spine AP and lateral views of the cervical spine shows normal vertebral body height and alignment. Intervertebral disc spaces are well-maintained. There is no fracture or prevertebral soft tissue swelling. IMPRESSION: Negative cervical spine Dictated by: Dictated on workstation # [id number]
== END ==
LOC: RAD 11:04
DX: M54.2 Cervicalgia (principal)
CPT/HCPCS: 72040

== ENCOUNTER → 2020-02-22 | Outpatient (CLI) | payer MEDICARE ==
--- NOTE | 2020-02-22 16:50 | Diagnostic Imaging Report ---
MRI LT UPPER EXT JOINT W/O TECHNIQUE: Multiplanar, multisequence MR imaging of the left shoulder was performed without contrast. COMPARISON: None available. INDICATION: Left shoulder pain. FINDINGS: Rotator cuff: The supraspinatus, infraspinatus, and teres minor are intact. There is low-grade partial-thickness tearing of the subscapularis at its inferior insertion on the lesser tuberosity. No rotator cuff muscle atrophy. Glenoid labrum: Linear signal within the posterosuperior aspect of the glenoid labrum may represent a nondisplaced radial tear. No paralabral cyst or chondrolabral separation. Long head of biceps: Long head of biceps is normally positioned within the bicipital groove. The intracapsular segment is intact. Bones and cartilage: Humeral head is normal in morphology without fracture or focal osseous lesion. No glenohumeral chondromalacia. The acromioclavicular joint is normal in alignment without significant degenerative change. Soft tissues: No glenohumeral joint effusion. No MRI findings to suggest adhesive capsulitis. No fluid or inflammatory like signal within the subacromial/subdeltoid space to indicate bursitis. IMPRESSION: 1. Low-grade partial-thickness tear of the deep insertional fibers of subscapularis. No rotator cuff muscle atrophy. 2. Probable nondisplaced superior labral tear. No paralabral cyst. 3. Long head of biceps is intact. Dictated by: Dictated on workstation # [id number]
== END ==
LOC: RAD 15:05
PROVIDERS: ATTEND Orthopaedic Surgery
DX: S46.012A Strain of muscle(s) and tendon(s) of the rotator cuff of left shoulder, initial encounter (principal); X58.XXXA Exposure to other specified factors, initial encounter
CPT/HCPCS: 73221

== ENCOUNTER 2020-02-25 10:42 | Emergency (ER) | payer MEDICARE ==
[~2020-02-25] VITALS: Ht 172 cm; Wt 74.8 kg
[2020-02-25] MEDS ORDERED: LACTATED RINGERS 1,000 ML IV ONE (11:01)
[2020-02-25] MEDS ORDERED: ACETAMINOPHEN 500 MG TAB (TYLENOL) PO STA (11:06)
--- NOTE | 2020-02-25 11:06 | ED General ---
General Chief Complaint: Respiratory Problems Stated Complaint: SOA Nursing Triage Note: PT PRESENTS TO ED WITH COMPLAINTS OF CHILLS, SOA, DELCID, MALAISE X 2-3 DAYS. REPORTS NO TRAVEL OUTSIDE OF [place] AND [place]. Nursing Sepsis Screen: No Definite Risk Source of Information: Patient Exam Limitations: No Limitations History of Present Illness Date Seen by Provider: February 25, 2020 Time Seen by Provider: 10:51 Initial Comments Here with report of a variety of vague complaints including chills, mild shortness of air, headache and fatigue. This is been going on for 2-3 days. No significant travel history but has been seen by his provider in [place] and [place]. He was concerned and wanted to get tested for COVID-19. Main complaint is headache and fatigue currently. Timing/Duration: 2-3 Days Severity: Moderate Associated Systoms: No Cough, No Fever/Chills; Headaches, Malaise, Shortness of Air Allergies and Home Medications Allergies Coded Allergies: codeine (Verified Allergy, Mild, NAUSEA, 02/24/18) cyclobenzaprine (Verified Allergy, Unknown, 02/25/20) ketamine (Verified Adverse Reaction, Unknown, DOES NOT LIKE THE WAY IT MAKES HIM FEEL., 12/26/18) Home Medications Diazepam 10 Mg Tablet, 10 MG PO BID, (Reported) Esomeprazole Magnesium 40 Mg Capsule.dr, 40 MG PO DAILY, (Reported) Garlic 1 Each Tablet, 1 EACH PO DAILY, (Reported) Meloxicam 15 Mg Tablet, 15 MG PO DAILY, (Reported) Pantoprazole Sodium 40 Mg Tablet.dr, 40 MG PO DAILY, (Reported) Potassium Gluconate 90 Mg Tablet, 90 MG PO DAILY, (Reported) Quetiapine Fumarate 50 Mg Tablet, 50 MG PO HS, (Reported) Quetiapine Fumarate 25 Mg Tablet, 25 MG PO DAILY, (Reported) Simvastatin 40 Mg Tablet, 40 MG PO DAILY, (Reported) Trazodone HCl 150 Mg Tablet, 150 MG PO HS, (Reported) Patient Home Medication List Home Medication List Reviewed: Yes Review of Systems Review of Systems Constitutional: see HPI; No chills, No fever; malaise Respiratory: see HPI Cardiovascular: no symptoms reported Gastrointestinal: no symptoms reported Genitourinary: no symptoms reported Musculoskeletal: see HPI, back pain, muscle pain, muscle weakness Skin: no symptoms reported Psychiatric/Neurological: Anxiety, Headache All Other Systems Reviewed Negative Unless Noted: Yes Past Qmmkcne-Faverz-Cdlxkc Hx Past Med/Social Hx: Reviewed Nursing Past Med/Soc Hx Patient Social History Alcohol Use: Denies Use Recreational Drug Use: No Smoking Status: Former Smoker Former Smoker, Quit: Aug 06, 1998 Recent Foreign Travel: No Contact w/Someone Who Travel: No Recent Infectious Disease Expo: No Recent Hopitalizations: No Immunizations Up To Date Tetanus Booster (TDap): Less than 5yrs Date of Influenza Vaccine: Aug 03, 2017 Seasonal Allergies Seasonal Allergies: Yes Past Medical History Surgeries: Yes (bilat knee scope, R shoulder sx) Orthopedic Respiratory: No Cardiac: Yes High Cholesterol Neurological: Yes (alcohol-induced neuropathic disorder) Reproductive Disorders: No Sexually Transmitted Disease: No HIV/AIDS: No Genitourinary: No Gastrointestinal: Yes Gastroesophageal Reflux, Chronic Diarrhea Musculoskeletal: Yes Arthritis, Chronic Back Pain Endocrine: No HEENT: Yes Loss of Vision: Bilateral Hearing Impairment: Hard of Hearing, Bilateral Hearing Aide Cancer: No Psychosocial: Yes ("ANGER ISSUES") Anxiety, Depression Integumentary: No Blood Disorders: No Adverse Reaction/Blood Tranf: No (N/A) Family Medical History Reviewed Nursing Family Hx No Pertinent Family Hx Physical Exam Vital Signs Vital Signs - First Documented 02/25/20 10:50 Temp 36.3 Pulse 67 Resp 18 B/P (MAP) 130/103 (112) Pulse Ox 100 Capillary Refill : Less Than 3 Seconds Height, Weight, BMI Height: 5'8.00" Weight: 165lbs. 4.0oz. 74.390295ep; 25.00 BMI Method:Stated General Appearance: No Apparent Distress, WD/WN Neck: Full Range of Motion, Normal Inspection, Non Tender, Supple Respiratory: Lungs Clear, Normal Breath Sounds Cardiovascular: Regular Rate, Rhythm, No Murmur Gastrointestinal: Non Tender, Soft Back: No Decreased Range of Motion; Other (tender all over and states that he has chronic back problems.) Extremity: No Calf Tenderness, No Pedal Edema, Other (sling to left arm for rotator cuff concerns. Walked without difficulty.) Neurologic/Psychiatric: Alert, Oriented x3, No Motor/Sensory Deficits Skin: Normal Color, Warm/Dry Progress/Results/Core Measures Suspected Sepsis Recent Fever Within 48 Hours: No Infection Criteria Present: None New/Unexplained Altered Menta: No Sepsis Screen: No Definite Risk SIRS Temperature: Pulse: 67 Respiratory Rate: 18 Laboratory Tests 02/25/20 11:02: White Blood Count 10.3 Blood Pressure 130 /103 Mean: 112 Laboratory Tests 02/25/20 11:02: Creatinine 1.20, Platelet Count 205, Total Bilirubin 0.4 Results/Orders Lab Results Laboratory Tests Test 02/25/20 11:02 Range/Units White Blood Count 10.3 4.3-11.0 10^3/uL Red Blood Count 4.49 4.35-5.85 10^6/uL Hemoglobin 15.6 13.3-17.7 G/DL Hematocrit 43 40-54 % Mean Corpuscular Volume 97 80-99 FL Mean Corpuscular Hemoglobin 35 H 25-34 PG Mean Corpuscular Hemoglobin Concent 36 32-36 G/DL Red Cell Distribution Width 12.3 10.0-14.5 % Platelet Count 205 130-400 10^3/uL Mean Platelet Volume 10.3 7.4-10.4 FL Neutrophils (%) (Auto) 56 42-75 % Lymphocytes (%) (Auto) 25 12-44 % Monocytes (%) (Auto) 17 H 0-12 % Eosinophils (%) (Auto) 2 0-10 % Basophils (%) (Auto) 0 0-10 % Neutrophils # (Auto) 5.8 1.8-7.8 X 10^3 Lymphocytes # (Auto) 2.6 1.0-4.0 X 10^3 Monocytes # (Auto) 1.7 H 0.0-1.0 X 10^3 Eosinophils # (Auto) 0.2 0.0-0.3 10^3/uL Basophils # (Auto) 0.0 0.0-0.1 10^3/uL Sodium Level 139 135-145 MMOL/L Potassium Level 3.7 3.6-5.0 MMOL/L Chloride Level 103 98-107 MMOL/L Carbon Dioxide Level 26 21-32 MMOL/L Anion Gap 10 5-14 MMOL/L Blood Urea Nitrogen 25 H 7-18 MG/DL Creatinine 1.20 0.60-1.30 MG/DL Estimat Glomerular Filtration Rate > 60 BUN/Creatinine Ratio 21 Glucose Level 82 70-105 MG/DL Calcium Level 9.2 8.5-10.1 MG/DL Corrected Calcium 9.0 8.5-10.1 MG/DL Total Bilirubin 0.4 0.1-1.0 MG/DL Aspartate Amino Transf (AST/SGOT) 15 5-34 U/L Alanine Aminotransferase (ALT/SGPT) 24 0-55 U/L Alkaline Phosphatase 46 40-136 U/L C-Reactive Protein High Sensitivity 0.02 0.00-0.50 MG/DL Total Protein 7.0 6.4-8.2 GM/DL Albumin 4.2 3.2-4.5 GM/DL My Orders Orders - NOEL DOYLE MD Cbc With Automated Diff (02/25/20 11:01) Comprehensive Metabolic Panel (02/25/20 11:01) Hs C Reactive Protein (02/25/20 11:01) Coronavirus Sars-Cov-2 So 2018 (02/25/20 11:01) Ed Iv/Invasive Line Start (02/25/20 11:01) Lactated Ringers (Lr 1000 Ml Iv Solution (02/25/20 11:01) Acetaminophen Tablet (Tylenol Tablet) (02/25/20 11:06) Hydrocodone/Apap 5/325 Tablet (Lortab 5 (02/25/20 11:15) Medications Given in ED Current Medications Medications Dose Ordered Sig/Marian Route Start Time Stop Time Status Last Admin Dose Admin Acetaminophen/ Hydrocodone Bitart 1 tab ONCE ONCE PO 02/25/20 11:15 02/25/20 11:16 DC 02/25/20 11:11 1 TAB Lactated Ringer's 1,000 ml @ 0 mls/hr Q0M ONCE IV 02/25/20 11:01 02/25/20 11:03 DC 02/25/20 11:10 0 MLS/HR Vital Signs/I&O 02/25/20 10:50 Temp 36.3 Pulse 67 Resp 18 B/P (MAP) 130/103 (112) Pulse Ox 100 Capillary Refill : Less Than 3 Seconds Blood Pressure Mean: 112 Progress Note : Progress Note Seen and evaluated. Did today complaints and patient concerns, we will do COVID- 19 testing. Patient is on meloxicam and states he has been taking Aleve as well. We will go ahead and check basic labs. Hydrocodone 5/325 one tab by mouth given. Acetaminophen 500 mg by mouth. In review of his medication history, patient previously on tizanidine and was switched to cyclobenzaprine. Patient states he has allergy to that has not been able to take any muscle relaxers. This may be part of the problem as well. Monitor patient. 1203: Overall doing better. He is currently not taking any muscle relaxer because the cyclobenzaprine is making him too sleepy. He is calling it an allergy although it seems more like a medication effect. He was previously on tizanidine but of apparently he was having problems affording that potentially. He has appointment with Dr. Johnson this week. I'll let him readdress that with his primary care doctor. No significant findings on labs currently. COVID-19 testing pending and will be available in one to 2 days. Discharged home with return precautions. Patient verbalize understanding instructions and agreement with plan. Departure Impression Primary Impression: Headache Qualified Codes: R51 - Headache Additional Impression: COVID-19 evaluation Disposition: 01 HOME, SELF-CARE Condition: Improved Departure-Patient Inst. Decision time for Depature: 12:04 Referrals: JULIO JOHNSON MD (PCP/Family) Primary Care Physician Patient Instructions: Coronavirus Disease 2019 (COVID-19) (DC), Headache, Adult (DC) Add. Discharge Instructions: All discharge instructions reviewed with patient and/or family. Voiced understanding. You are under quarantine until you have results either positive or negative. If they are negative then you can return to standard precautions. If they are positive and the health department will guide your quarantine. Discussed with her DrArgentina about the muscle relaxer that was causing her problems. You may take Tylenol/acetaminophen 1000 mg every 8 hours as needed for pain. Drink plenty of fluids. Return for worse pain, fever, vomiting, weakness, breathing problems or other concerns as needed. Copy Copies To 1: JULIO JOHNSON MD, TIMOTHY D MD February 25, 2020 11:06
[2020-02-25] MEDS ORDERED: HYDROcodone/APAP 5 MG/325 MG (LORTAB) TAB PO ONE (11:15)
[2020-02-25 11:18] LABS: BASOPHILS % (AUTO) 0 % (0-10); EOSINOPHILS # (AUTO) 0.2 10^3/uL (0.0-0.3); EOSINOPHILS % (AUTO) 2 % (0-10); HEMATOCRIT 43 % (40-54); HEMOGLOBIN 15.6 G/DL (13.3-17.7); LYMPHOCYTES # (AUTO) 2.6 X 10^3 (1.0-4.0); LYMPHOCYTES % (AUTO) 25 % (12-44); MEAN CORPUSCULAR HEMOGLOBIN 35 PG (25-34); MEAN CORPUSCULAR HGB CONC 36 G/DL (32-36); MEAN CORPUSCULAR VOLUME 97 FL (80-99); MEAN PLATELET VOLUME 10.3 FL (7.4-10.4); MONOCYTES # (AUTO) 1.7 X 10^3 (0.0-1.0); MONOCYTES % (AUTO) 17 % (0-12); NEUTROPHILS # (AUTO) 5.8 X 10^3 (1.8-7.8); NEUTROPHILS % (AUTO) 56 % (42-75); PLATELET COUNT 205 10^3/uL (130-400); RED CELL DISTRIBUTION WIDTH 12.3 % (10.0-14.5); WHITE BLOOD COUNT 10.3 10^3/uL (4.3-11.0)
[2020-02-25 11:36] LABS: ALANINE AMINOTRANSFERASE 24 U/L (0-55); ALBUMIN 4.2 GM/DL (3.2-4.5); ALKALINE PHOSPHATASE 46 U/L (40-136); BILIRUBIN,TOTAL 0.4 MG/DL (0.1-1.0); BUN/CREATININE RATIO 21; CALCIUM 9.2 MG/DL (8.5-10.1); CARBON DIOXIDE 26 MMOL/L (21-32); CHLORIDE 103 MMOL/L (98-107); GFR ESTIMATED > 60; GLUCOSE 82 MG/DL (70-105); POTASSIUM 3.7 MMOL/L (3.6-5.0); SODIUM 139 MMOL/L (135-145)
[2020-02-25 12:18] VITALS: BP 125/94
== END 2020-02-25 12:18 | disposition home or self-care (01) ==
LOC: EDUNIT# 10:42 → ER 10:44
DX: R51 Headache (principal); E78.00 Pure hypercholesterolemia, unspecified; K21.9 Gastro-esophageal reflux disease without esophagitis; F41.9 Anxiety disorder, unspecified; F32.9 Major depressive disorder, single episode, unspecified; Z11.59 Encounter for screening for other viral diseases; Z88.5 Allergy status to narcotic agent; Z88.8 Allergy status to other drugs, medicaments and biological substances; Z87.891 Personal history of nicotine dependence
CPT/HCPCS: 36415; 80053; 85025; 86141; 87635

== ENCOUNTER 2020-06-07 06:08 | Day surgery (SDC) | payer MEDICARE ==
[~2020-06-07] VITALS: Ht 172.7 cm; Wt 75.3 kg
[2020-06-07] VITALS (10 sets, daily range): BP systolic 97–151; BP diastolic 56–92
[~2020-06-07 06:08] MED LIST changes: +FLUV100T3 PO; +MULT-567 PO; -MULT1TAB69 PO
[2020-06-07] MEDS ORDERED: ROCURONIUM 10 MG/ML 5 ML SYRINGE IV ONE (07:01)
[2020-06-07] MEDS ORDERED: SEVOFLURANE (ULTANE) 15 ML INHAL SOLN ONE (07:01)
[2020-06-07] MEDS ORDERED: LIDOCAINE PF 2% 5 ML (XYLOCAINE) VIAL ONE (07:01)
[2020-06-07] MEDS ORDERED: ONDANSETRON 4 MG/2 ML (SDV) Z0FRAN ONE (07:01)
[2020-06-07] MEDS ORDERED: proPOfol 200 MG/20 ML (DIPRIVAN) VIAL IV ONE (07:01)
[2020-06-07] MEDS ORDERED: MIDAZOLAM 2 MG/2 ML (VERSED) VIAL ONE (07:01)
[2020-06-07] MEDS ORDERED: NEOSTIGMINE 3 MG/3 ML VIAL ONE (07:01)
[2020-06-07] MEDS ORDERED: GLYCOPYRROLATE 0.2 MG/ML (ROBINUL) 2 ML VIAL ONE (07:01)
[2020-06-07] MEDS ORDERED: fentaNYL INJECTION 100 MCG/2 ML AMP ONE (07:01)
[2020-06-07] MEDS ORDERED: LIDOCAINE/EPI 1%-1:100,000 (XYLOCAINE) 20ML ONE (07:09)
[2020-06-07] MEDS ORDERED: COCAINE HCL 4% 2 ML SYR ONE (07:09)
[2020-06-07] MEDS ORDERED: PHENYLEPHRINE 0.5% NASAL SPR (NEO-SYNEPHRINE) REG ONE (07:09)
[2020-06-07] MEDS: LACTATED RINGERS 1,000 ML IV PRN ×2 (07:16→08:38)
[2020-06-07] MEDS ORDERED: HYDROmorphone 2 MG/ML VIAL (DILAUDID) IV ONE ×2 (09:15→09:30)
[2020-06-07] MEDS ORDERED: ONDANSETRON 4 MG/2 ML (SDV) Z0FRAN IVP PRN ×2 (09:15→09:30)
[2020-06-07] MEDS ORDERED: morphine INJ 10 MG/ML 1ML (SYR OR VIAL) IVP ONE ×2 (09:15→09:30)
[2020-06-07] MEDS ORDERED: ASPI-999 PO (10:34)
[2020-06-07] MEDS ORDERED: HYDR-3812 PO (10:34)
[2020-06-07] MEDS ORDERED: AMOX-355 PO (10:34)
[2020-06-07] MEDS ORDERED: MELO15TA39 PO (10:34)
--- NOTE | 2020-06-07 10:40 | Anesthesia-General Post-Op ---
General Patient Condition Mental Status/LOC: Same as Preop Cardiovascular: Satisfactory Nausea/Vomiting: Absent Respiratory: Satisfactory Pain: Controlled Complications: Absent Post Op Complications Complications None Follow Up Care/Instructions Patient Instructions None needed. Anesthesia/Patient Condition Patient Condition Patient is doing well, no complaints, stable vital signs, no apparent adverse anesthesia problems. GABO CABRERA DO Jun 07, 2020 10:40
== END 2020-06-07 11:20 ==
LOC: SDC 06:08 → EDSTATUS 07:30 → SDC 11:20
PROVIDERS: ATTEND Otolaryngology Otolaryngology/Facial Plastic Surgery
DX: J34.2 Deviated nasal septum (principal); J34.89 Other specified disorders of nose and nasal sinuses; R09.81 Nasal congestion; J34.3 Hypertrophy of nasal turbinates; F32.9 Major depressive disorder, single episode, unspecified; K21.9 Gastro-esophageal reflux disease without esophagitis; Z79.899 Other long term (current) drug therapy; Z88.5 Allergy status to narcotic agent; Z88.8 Allergy status to other drugs, medicaments and biological substances
CPT/HCPCS: 88300

== ENCOUNTER → 2020-07-16 | Outpatient (CLI) | payer MEDICARE ==
[~2020-07-16] MED LIST changes: +ACHD5005 PO; +AMOX-355 PO; -PANT40TA3 PO; +PANT40TA52 PO
--- NOTE | 2020-07-16 16:13 | Diagnostic Imaging Report ---
PROCEDURE: MR imaging cervical spine without contrast. TECHNIQUE: Multiplanar, multisequence MR imaging of the cervical spine was performed without contrast. INDICATION: Neck pain. Radiculopathy. COMPARISON: 12/14/2019. 12/26/2018. FINDINGS: No acute fracture or dislocation is seen in the cervical spine. There is normal alignment of the cervical spine. The vertebral body heights and disc spaces are well maintained. The bone marrow signal is unremarkable. No focal osseous lesions. The craniocervical junction is maintained. The cervical spinal cord demonstrates normal intrinsic signal. No epidural collections are seen. The included brainstem and posterior fossa have normal appearance. Multilevel degenerative changes are seen in the cervical spine with posterior disc bulges and uncovertebral arthropathy. C2-C3: No significant spinal canal or foraminal stenosis. C3-C4: No significant spinal canal or foraminal stenosis. C4-C5: Posterior disc bulge, buckling of ligamentum flavum and uncovertebral arthropathy results in mild spinal canal narrowing and moderate bilateral foraminal stenosis. C5-C6: Posterior disc bulge and uncovertebral arthropathy results in mild spinal canal narrowing and moderate left and no right foraminal stenosis. C6-C7: Posterior disc bulge and uncovertebral arthropathy results in no significant spinal canal narrowing and mild right and [id number] left foraminal narrowing. C7-T1: No significant spinal canal or foraminal stenosis. The soft tissues of neck are unremarkable. IMPRESSION: 1. No acute fracture or dislocation of the cervical spine. 2. Multilevel degenerative changes in the cervical spine, greatest at C4-C5 and C5-C6. Dictated by: Dictated on workstation # [id number]
== END ==
LOC: RAD 15:30
PROVIDERS: ATTEND Orthopaedic Surgery
DX: M47.22 Other spondylosis with radiculopathy, cervical region (principal); Z20.828 Contact with and (suspected) exposure to other viral communicable diseases
CPT/HCPCS: 72141

== ENCOUNTER 2020-09-12 09:27 | Outpatient (RCR) | payer MEDICARE, OTHER | END 2020-09-12 10:39 | disposition home or self-care (01) | PROVIDERS: ATTEND Student in an Organized Health Care Education/Training Program | DX: M54.12 Radiculopathy, cervical region (principal) ==

== ENCOUNTER 2020-10-27 11:12 | Emergency (ER) | payer MEDICARE ==
[~2020-10-27] VITALS: Ht 172 cm; Wt 77.0 kg
--- NOTE | 2020-10-27 11:53 | NUR ---
Flexeril ordered to five patient but is listed as allergy. Patient states flexeril makes him tired and "out of it." Ok to give flexeril per Dr Eli.
[2020-10-27] MEDS ORDERED: CYCLOBENZAPRINE 10 MG (FLEXERIL) TAB PO SCH (12:00)
[2020-10-27] MEDS ORDERED: TRM50T PO ×2 (12:18→12:20)
--- NOTE | 2020-10-27 12:18 | ED General ---
General Chief Complaint: General Problems/Pain Stated Complaint: NECK/LT ARM SPASM Nursing Triage Note: Woke up this morning at 0530 with muscle spasms on left side of neck and left arm. Is rating pain at 10/10. States has had physical therapy in the past for neck problems. Nursing Sepsis Screen: No Definite Risk History of Present Illness Date Seen by Provider: Oct 27, 2020 Time Seen by Provider: 11:45 Initial Comments Patient is a 65-year-old male with history of chronic neck pain who presents with acute exacerbation of chronic neck and upper back pain upon waking this morning. Patient denies new trauma or repetitive strain injury. He is currently under management by his PCP for his current condition. Denies extremity weakness or loss of sensation. 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 Pain is rated He states the muscle spasms go from his neck to his arm to his b oth legs and he is unable to move when he has them. No recent fever, sore throat, rash, loss of bowel or bladder function. No other acute symptoms or complaints. Timing/Duration: 4-6 Hours Severity: Severe Modifying Factors: improves with Movement Associated Systoms: Other Allergies and Home Medications Allergies Coded Allergies: codeine (Verified Allergy, Mild, NAUSEA, 06/07/20) cyclobenzaprine (Verified Allergy, Unknown, 06/07/20) ketamine (Verified Adverse Reaction, Unknown, DOES NOT LIKE THE WAY IT MAKES HIM FEEL., 06/07/20) Home Medications Amoxicillin/Potassium Clav 1 Each Tablet, 1 EACH PO BID Prescribed by: DANICA VARGHESE on 06/07/20 1034 Aspirin 81 Mg Tab.chew, 81 MG PO DAILY HOLD UNTILL THURSDAY Prescribed by: DANICA VARGHESE on 06/07/20 1034 Diazepam 10 Mg Tablet, 10 MG PO BID, (Reported) Fluvoxamine Maleate 100 Mg Tablet, 100 MG PO BID, (Reported) Hydrocodone/Acetaminophen 1 Each Tablet, 1-2 EACH PO Q4H PRN for PAIN-SEVERE (8- 10) Prescribed by: DANICA VARGHESE on 06/07/20 1034 Meloxicam 15 Mg Tablet, 15 MG PO DAILY HOLD FOR ONW WEEK, 7 DAYS Prescribed by: DANICA VARGHESE on 06/07/20 1034 Pantoprazole Sodium 40 Mg Tablet.dr, 40 MG PO DAILY, (Reported) Simvastatin 40 Mg Tablet, 40 MG PO DAILY, (Reported) Trazodone HCl 150 Mg Tablet, 150 MG PO HS, (Reported) Patient Home Medication List Home Medication List Reviewed: Yes Review of Systems Review of Systems Constitutional: see HPI EENTM: see HPI Respiratory: see HPI Cardiovascular: see HPI Gastrointestinal: see HPI Musculoskeletal: see HPI Skin: see HPI Psychiatric/Neurological: See HPI Hematologic/Lymphatic: See HPI Immunological/Allergic: see HPI All Other Systems Reviewed Negative Unless Noted: Yes Past Irzhtzs-Buvwlj-Ogbkjw Hx Past Med/Social Hx: Reviewed Nursing Past Med/Soc Hx Patient Social History Alcohol Use: Denies Use Recreational Drug Use: No Smoking Status: Former Smoker Former Smoker, Quit: Aug 06, 1998 2nd Hand Smoke Exposure: Yes Recent Foreign Travel: No Contact w/Someone Who Travel: No Recent Infectious Disease Expo: No Recent Hopitalizations: No Physical Abuse: No Sexual Abuse: No Mistreated: No Fear: No Immunizations Up To Date Tetanus Booster (TDap): Less than 5yrs Date of Influenza Vaccine: Aug 03, 2017 Seasonal Allergies Seasonal Allergies: Yes Past Medical History Surgeries: Yes (bilat knee scope, bilat shoulder; nose) Orthopedic Respiratory: No Currently Using CPAP: No Currently Using BIPAP: No Cardiac: Yes High Cholesterol Neurological: Yes (alcohol-induced neuropathic disorder) Seizure Disorder Reproductive Disorders: No Sexually Transmitted Disease: No HIV/AIDS: No Genitourinary: No Gastrointestinal: Yes Gastroesophageal Reflux, Chronic Constipation Musculoskeletal: Yes Arthritis, Chronic Back Pain Endocrine: No HEENT: Yes (deviated septum) Loss of Vision: Bilateral Hearing Impairment: Hard of Hearing, Bilateral Hearing Aide Cancer: No Psychosocial: Yes ("ANGER ISSUES") Anxiety, Depression Integumentary: No Blood Disorders: No Adverse Reaction/Blood Tranf: No (N/A) Family Medical History No Pertinent Family Hx Physical Exam Vital Signs Vital Signs - First Documented 10/27/20 11:25 Temp 36.4 Pulse 75 Resp 20 B/P (MAP) 137/86 (103) Pulse Ox 98 Capillary Refill : Less Than 3 Seconds Height, Weight, BMI Height: 5'8.00" Weight: 165lbs. 4.0oz. [id number]; 26.00 BMI Method:Stated General Appearance: No Apparent Distress, Anxious Eyes: Bilateral Eye Normal Inspection, Bilateral Eye PERRL, Bilateral Eye EOMI HEENT: PERRL/EOMI, Moist Mucous Membranes Neck: Full Range of Motion, Normal Inspection, Non Tender, Supple Respiratory: Lungs Clear Cardiovascular: Regular Rate, Rhythm Gastrointestinal: Soft Back: No CVA Tenderness, Other (SEVERE soft tissue tenderness to light touch in distribution of upper thoracic spine. Pain improves with distraction.) Neurologic/Psychiatric: Alert, Oriented x3, No Motor/Sensory Deficits Lymphatic: No Adenopathy Progress/Results/Core Measures Suspected Sepsis Recent Fever Within 48 Hours: No Infection Criteria Present: None New/Unexplained Altered Menta: No Sepsis Screen: No Definite Risk SIRS Temperature: Pulse: 75 Respiratory Rate: 20 Blood Pressure 137 /86 Mean: 103 Results/Orders My Orders Orders - MARIAM IZAGUIRRE DO Tramadol Tablet (Ultram Tablet) (10/27/20 12:00) Cyclobenzaprine Tablet (Flexeril Tablet) (10/27/20 12:00) Medications Given in ED Current Medications Medications Dose Ordered Sig/Marian Route Start Time Stop Time Status Last Admin Dose Admin Tramadol HCl 50 mg ONCE ONCE PO 10/27/20 12:00 10/27/20 12:01 DC 10/27/20 11:53 50 MG Vital Signs/I&O 10/27/20 11:25 Temp 36.4 Pulse 75 Resp 20 B/P (MAP) 137/86 (103) Pulse Ox 98 Capillary Refill : Less Than 3 Seconds Blood Pressure Mean: 103 Departure Communication (Admissions) Patient with severe unrelenting somatic reproducible pain complaints. MRI dated 07/08/20 reviewed. Degenerative cervical disc disease noted. Pain addressed. Patient able to stand and walk after medication given. No history of anaphylaxis. Patient monitored without any reaction in the ED. Will prescribe current medications provided in the emergency department with instructions to follow up with PCP. Impression Primary Impression: Cervical radiculopathy, acute Disposition: HOME, SELF-CARE Condition: Stable Departure-Patient Inst. Decision time for Depature: 12:16 Referrals: GINA CUI (PCP/Family) Primary Care Physician Patient Instructions: Radiculopathy (DC) Add. Discharge Instructions: Please avoid heavy lifting and strenuous physical activity. Take newly prescribed medications as directed and follow-up with your PCP for further management. All discharge instructions reviewed with patient and/or family. Voiced understanding. Scripts Tramadol HCl (Tramadol HCl) 50 Mg Tablet 50 MG PO Q6H PRN for PAIN for 3 Days, #10 TAB 0 Refills Prov: MARIAM IZAGUIRRE DO 10/27/20 Tramadol HCl (Tramadol HCl) 50 Mg Tablet 50 MG PO Q6H PRN for PAIN for 3 Days, #15 TAB 0 Refills Prov: MARIAM IZAGUIRRE DO 10/27/20 MARIAM IZAGUIRRE DO Oct 27, 2020 12:18
[2020-10-27] MEDS ORDERED: CYCL10TA9 PO (12:20)
[2020-10-27 12:25] VITALS: BP 130/98
== END 2020-10-27 12:30 | disposition home or self-care (01) ==
LOC: EDUNIT# 11:12 → ER FS 11:14
DX: M54.12 Radiculopathy, cervical region (principal); K21.9 Gastro-esophageal reflux disease without esophagitis; G40.909 Epilepsy, unspecified, not intractable, without status epilepticus; F32.9 Major depressive disorder, single episode, unspecified; F41.9 Anxiety disorder, unspecified; E78.00 Pure hypercholesterolemia, unspecified; G89.29 Other chronic pain; M54.9 Dorsalgia, unspecified; Z88.5 Allergy status to narcotic agent; Z88.8 Allergy status to other drugs, medicaments and biological substances; Z87.891 Personal history of nicotine dependence; Z79.82 Long term (current) use of aspirin; Z79.891 Long term (current) use of opiate analgesic
CPT/HCPCS: 99283

== ENCOUNTER 2020-11-17 10:49 | Emergency (ER) | payer MEDICARE ==
[~2020-11-17] VITALS: Ht 172.7 cm; Wt 77.2 kg
--- NOTE | 2020-11-17 11:22 | ED Abdominal Pain ---
General Chief Complaint: Abdominal/GI Problems Stated Complaint: PAIN POSSIBLY LIFTED SOMETHING WRONG Nursing Triage Note: TO ED PER W/C C/O LOW ABD PAIN FOR SEVERAL DAYS THINKS MAY BE DUE TO THE EXCERSIE HE HAS BEEN DOING. DOES REPORT BURNING WHEN HE URINATES. Sepsis Screen: No Definite Risk Source of Information: Patient Exam Limitations: No Limitations History of Present Illness Date Seen by Provider: Nov 17, 2020 Time Seen by Provider: 11:10 Initial Comments Patient is a 65-year-old male who presents to the emergency department today w ith a chief complaint of diffuse abdominal discomfort. Patient states onset of symptoms was approximately 2 days ago. Patient states that he tried taking some laxative at home to alleviate his pain. Patient states that he had two normal bowel movements yesterday. Patient does endorse some burning with urination and states that started within the last couple of days as well. He denies any fevers or chills. No nausea or vomiting. Patient states he was able to eat breakfast this morning around 6 AM and he had cream of wheat. Patient has been drinking water. Moving around makes his pain worse nothing is made it any better. He has not tried any [id number] Tylenol or ibuprofen. Patient also states that he has some upper back pain but has a history of chronic back pain and states that this is similar. All other review of systems reviewed and negative except as stated. Timing/Duration: 2-3 Days Severity/Quality: Cramping, Stabbing Location: Generalized Abdomen (Mostly right and left lower quadrant) Radiation: No Radiation Activities at Onset: Activity (Patient states that he has been doing "exercises" and demonstrates upper body exercises.) Modifying Factors: Improves With Lying down; Worsens With Movement Associated Symptoms: Back Pain Allergies and Home Medications Allergies Coded Allergies: codeine (Verified Allergy, Mild, NAUSEA, 06/07/20) cyclobenzaprine (Verified Allergy, Unknown, 06/07/20) ketamine (Verified Adverse Reaction, Unknown, DOES NOT LIKE THE WAY IT MAKES HIM FEEL., 06/07/20) Home Medications Amoxicillin/Potassium Clav 1 Each Tablet, 1 EACH PO BID Prescribed by: DANICA VARGHESE on 06/07/20 1034 Aspirin 81 Mg Tab.chew, 81 MG PO DAILY HOLD UNTILL THURSDAY Prescribed by: DANICA VARGHESE on 06/07/20 1034 Cyclobenzaprine HCl 10 Mg Tablet, 10 MG PO Q8H Prescribed by: MARIAM IZAGUIRRE on 10/27/20 1220 Diazepam 10 Mg Tablet, 10 MG PO BID, (Reported) Fluvoxamine Maleate 100 Mg Tablet, 100 MG PO BID, (Reported) Hydrocodone/Acetaminophen 1 Each Tablet, 1-2 EACH PO Q4H PRN for PAIN-SEVERE (8- 10) Prescribed by: DANICA VARGHESE on 06/07/20 1034 Meloxicam 15 Mg Tablet, 15 MG PO DAILY HOLD FOR ONW WEEK, 7 DAYS Prescribed by: DANICA VARGHESE on 06/07/20 1034 Pantoprazole Sodium 40 Mg Tablet.dr, 40 MG PO DAILY, (Reported) Simvastatin 40 Mg Tablet, 40 MG PO DAILY, (Reported) Tramadol HCl 50 Mg Tablet, 50 MG PO Q6H PRN for PAIN Prescribed by: MARIAM IZAGUIRRE on 10/27/20 1218 Tramadol HCl 50 Mg Tablet, 50 MG PO Q6H PRN for PAIN Prescribed by: MARIAM IZAGUIRRE on 10/27/20 1218 Tramadol HCl 50 Mg Tablet, 50 MG PO Q6H PRN for PAIN Prescribed by: MARIAM IZAGUIRRE on 10/27/20 1220 Trazodone HCl 150 Mg Tablet, 150 MG PO HS, (Reported) Patient Home Medication List Home Medication List Reviewed: Yes Review of Systems Review of Systems Constitutional: see HPI EENTM: No Symptoms Reported Respiratory: No Symptoms Reported Cardiovascular: No Symptoms Reported Gastrointestinal: Abdominal Pain; Denies Nausea, Denies Vomiting Genitourinary: Burning; Denies Frequency Musculoskeletal: back pain (Upper back pain) Skin: no symptoms reported All Other Systems Reviewed Negative Unless Noted: Yes Past Bopkjdj-Zyyozz-Zxjahp Hx Patient Social History Alcohol Use: Denies Use Smoking Status: Current Everyday Smoker Former Smoker, Quit: Aug 06, 1998 2nd Hand Smoke Exposure: Yes Recent Infectious Disease Expo: No Recent Hopitalizations: No Immunizations Up To Date Tetanus Booster (TDap): Less than 5yrs Date of Influenza Vaccine: Aug 03, 2017 Seasonal Allergies Seasonal Allergies: Yes Past Medical History Surgeries: Yes (bilat knee scope, bilat shoulder; nose) Orthopedic Respiratory: No Currently Using CPAP: No Currently Using BIPAP: No Cardiac: Yes High Cholesterol Neurological: Yes (alcohol-induced neuropathic disorder) Seizure Disorder Reproductive Disorders: No Sexually Transmitted Disease: No HIV/AIDS: No Genitourinary: No Gastrointestinal: Yes Gastroesophageal Reflux, Chronic Constipation Musculoskeletal: Yes Arthritis, Chronic Back Pain Endocrine: No HEENT: Yes (deviated septum) Loss of Vision: Bilateral Hearing Impairment: Hard of Hearing, Bilateral Hearing Aide Cancer: No Psychosocial: Yes ("ANGER ISSUES") Anxiety, Depression Integumentary: No Blood Disorders: No Adverse Reaction/Blood Tranf: No (N/A) Family Medical History No Pertinent Family Hx Physical Exam Vital Signs Vital Signs - First Documented 11/17/20 10:53 Temp 35.8 Pulse 67 Resp 18 B/P (MAP) 163/99 (120) Pulse Ox 100 O2 Delivery Room Air Capillary Refill : Less Than 3 Seconds Height/Weight/BMI Height: 5'8.00" Weight: 165lbs. 4.0oz. [id number]; 25.00 BMI Method:Stated General Appearance: WD/WN, no apparent distress HEENT: PERRL/EOMI Respiratory: lungs clear, normal breath sounds, no respiratory distress, no accessory muscle use Cardiovascular: regular rate, rhythm, no murmur Gastrointestinal: soft, other (Patient has diffuse mild to moderate tenderness on palpation of the abdomen, patient appears to be distractible. Exam is inconsistent. Patient reacts to palpation of the right and left lower quadrants the most as well as periumbilical region. Bowel sounds are intact.) Extremities: normal range of motion, non-tender, normal inspection, no pedal edema Back: vertebral tenderness (Paraspinous approximately lower thoracic, patient is "tender" to light touch) Neurologic/Psychiatric: no motor/sensory deficits, alert, normal mood/affect, oriented x 3 Skin: normal color, warm/dry Progress/Results/Core Measures Results/Orders Lab Results Laboratory Tests Test 11/17/20 11:22 11/17/20 11:25 Range/Units Urine Color YELLOW Urine Clarity CLEAR Urine pH 7.0 5-9 Urine Specific [place] <=1.005 1.016-1.022 Urine Protein NEGATIVE NEGATIVE Urine Glucose (UA) NEGATIVE NEGATIVE Urine Ketones NEGATIVE NEGATIVE Urine Nitrite NEGATIVE NEGATIVE Urine Bilirubin NEGATIVE NEGATIVE Urine Urobilinogen 0.2 < = 1.0 MG/DL Urine Leukocyte Esterase NEGATIVE NEGATIVE Urine RBC (Auto) NEGATIVE NEGATIVE Urine RBC NONE /HPF Urine WBC NONE /HPF Urine Crystals NONE /LPF Urine Bacteria NEGATIVE /HPF Urine Casts NONE /LPF Urine Mucus NEGATIVE /LPF Urine Culture Indicated NO Urine Opiates Screen NEGATIVE NEGATIVE Urine Oxycodone Screen NEGATIVE NEGATIVE Urine Methadone Screen NEGATIVE NEGATIVE Urine Propoxyphene Screen NEGATIVE NEGATIVE Urine Barbiturates Screen NEGATIVE NEGATIVE Ur Tricyclic Antidepressants Screen NEGATIVE NEGATIVE Urine Phencyclidine Screen NEGATIVE NEGATIVE Urine Amphetamines Screen NEGATIVE NEGATIVE Urine Methamphetamines Screen NEGATIVE NEGATIVE Urine Benzodiazepines Screen POSITIVE H NEGATIVE Urine Cocaine Screen NEGATIVE NEGATIVE Urine Cannabinoids Screen NEGATIVE NEGATIVE White Blood Count 9.5 4.3-11.0 10^3/uL Red Blood Count 4.39 4.30-5.52 10^6/uL Hemoglobin 14.9 13.3-17.7 g/dL Hematocrit 42 40-54 % Mean Corpuscular Volume 97 80-99 fL Mean Corpuscular Hemoglobin 34 25-34 pg Mean Corpuscular Hemoglobin Concent 35 32-36 g/dL Red Cell Distribution Width 12.1 10.0-14.5 % Platelet Count 206 130-400 10^3/uL Mean Platelet Volume 10.3 9.0-12.2 fL Immature Granulocyte % (Auto) 0 % Neutrophils (%) (Auto) 55 42-75 % Lymphocytes (%) (Auto) 24 12-44 % Monocytes (%) (Auto) 16 H 0-12 % Eosinophils (%) (Auto) 5 0-10 % Basophils (%) (Auto) 1 0-10 % Neutrophils # (Auto) 5.2 1.8-7.8 10^3/uL Lymphocytes # (Auto) 2.3 1.0-4.0 10^3/uL Monocytes # (Auto) 1.5 H 0.0-1.0 10^3/uL Eosinophils # (Auto) 0.5 H 0.0-0.3 10^3/uL Basophils # (Auto) 0.1 0.0-0.1 10^3/uL Immature Granulocyte # (Auto) 0.0 0.0-0.1 10^3/uL Sodium Level 144 135-145 MMOL/L Potassium Level 4.1 3.6-5.0 MMOL/L Chloride Level 106 98-107 MMOL/L Carbon Dioxide Level 25 21-32 MMOL/L Anion Gap 13 5-14 MMOL/L Blood Urea Nitrogen 15 7-18 MG/DL Creatinine 1.00 0.60-1.30 MG/DL Estimat Glomerular Filtration Rate > 60 BUN/Creatinine Ratio 15 Glucose Level 98 70-105 MG/DL Calcium Level 9.8 8.5-10.1 MG/DL Corrected Calcium 8.5-10.1 MG/DL Total Bilirubin 0.8 0.1-1.0 MG/DL Aspartate Amino Transf (AST/SGOT) 29 5-34 U/L Alanine Aminotransferase (ALT/SGPT) 26 0-55 U/L Alkaline Phosphatase 59 40-136 U/L Total Protein 7.8 6.4-8.2 GM/DL Albumin 4.7 H 3.2-4.5 GM/DL Lipase 47 8-78 U/L My Orders Orders - REHANA YODER MD Ed Iv/Invasive Line Start (11/17/20 11:15) Cbc With Automated Diff (11/17/20 11:15) Comprehensive Metabolic Panel (11/17/20 11:15) Lipase (11/17/20 11:15) Drug Screen Stat (Urine) (11/17/20 11:15) Ua Culture If Indicated (11/17/20 11:15) Ketorolac Injection (Toradol Injection) (11/17/20 12:00) Medications Given in ED Current Medications Medications Dose Ordered Sig/Marian Route Start Time Stop Time Status Last Admin Dose Admin Ketorolac Tromethamine 15 mg ONCE ONCE IVP 11/17/20 12:00 11/17/20 12:01 DC 11/17/20 11:56 15 MG Vital Signs/I&O 11/17/20 10:53 Temp 35.8 Pulse 67 Resp 18 B/P (MAP) 163/99 (120) Pulse Ox 100 O2 Delivery Room Air Blood Pressure Mean: 120 Progress Progress Note : Time: 11:52 Progress Note Patient's labs have been obtained and reviewed. Patient has a normal CBC, normal chemistry, normal urinalysis. I feel like this patient's abdominal pain is mostly musculoskeletal. He has no other constitutional symptoms of fevers, chills, nausea, vomiting. Patient will be discharged home with supportive care and advised to drink plenty of fluids to stay well-hydrated. He will be given good return precautions. Discharge instructions will be given both verbal and written form. Patient was stable for discharge after pain medications here in the ED. Departure Impression Primary Impression: Abdominal pain Qualified Codes: R10.84 - Generalized abdominal pain Disposition: 30 STILL A PATIENT Departure-Patient Inst. Decision time for Depature: 12:10 Referrals: GINA CUI (PCP/Family) Primary Care Physician Patient Instructions: Abdominal Pain, Adult ED Add. Discharge Instructions: Drink plenty of clear liquids today to stay well-hydrated and eat a bland diet. If you have any worsening abdominal pain especially with fever over 101, nausea, vomiting or any other emergent concerning symptoms please come back to the emergency department so that we can reevaluate you. Continue your daily home medications. REHANA YODER MD Nov 17, 2020 11:21
[2020-11-17 11:28] LABS: BILIRUBIN,URINE NEGATIVE (NEGATIVE); CLARITY,URINE CLEAR; COLOR,URINE YELLOW; GLUCOSE, URINE (UA) NEGATIVE (NEGATIVE); KETONES,URINE NEGATIVE (NEGATIVE); LEUKOCYTE ESTERASE ,URINE NEGATIVE (NEGATIVE); NITRITE,URINE NEGATIVE (NEGATIVE); PROTEIN,URINE NEGATIVE (NEGATIVE)
[2020-11-17 11:32] LABS: BASOPHILS # (AUTO) 0.1 10^3/uL (0.0-0.1); BASOPHILS % (AUTO) 1 % (0-10); EOSINOPHILS # (AUTO) 0.5 10^3/uL (0.0-0.3); EOSINOPHILS % (AUTO) 5 % (0-10); HEMATOCRIT 42 % (40-54); HEMOGLOBIN 14.9 g/dL (13.3-17.7); LYMPHOCYTES # (AUTO) 2.3 10^3/uL (1.0-4.0); LYMPHOCYTES % (AUTO) 24 % (12-44); MEAN CORPUSCULAR HEMOGLOBIN 34 pg (25-34); MEAN CORPUSCULAR HGB CONC 35 g/dL (32-36); MEAN CORPUSCULAR VOLUME 97 fL (80-99); MEAN PLATELET VOLUME 10.3 fL (9.0-12.2); MONOCYTES # (AUTO) 1.5 10^3/uL (0.0-1.0); MONOCYTES % (AUTO) 16 % (0-12); NEUTROPHILS # (AUTO) 5.2 10^3/uL (1.8-7.8); NEUTROPHILS % (AUTO) 55 % (42-75); PLATELET COUNT 206 10^3/uL (130-400); WHITE BLOOD COUNT 9.5 10^3/uL (4.3-11.0)
[2020-11-17 11:35] LABS: BACTERIA,URINE NEGATIVE /HPF
[2020-11-17 11:42] LABS: ALBUMIN 4.7 GM/DL (3.2-4.5); CHLORIDE 106 MMOL/L (98-107); POTASSIUM 4.1 MMOL/L (3.6-5.0); SODIUM 144 MMOL/L (135-145)
[2020-11-17 11:43] LABS: CALCIUM 9.8 MG/DL (8.5-10.1)
[2020-11-17 11:43] LABS: AMPHETAMINE SCREEN, URINE NEGATIVE (NEGATIVE); BARBITURATE SCREEN URINE NEGATIVE (NEGATIVE); BENZODIAZEPINES SCREEN URINE POSITIVE (NEGATIVE); CANNABINOID SCREEN, URINE NEGATIVE (NEGATIVE); COCAINE SCREEN URINE NEGATIVE (NEGATIVE); METHADONE STAT NEGATIVE (NEGATIVE); METHAMPHETAMINE SCREEN URINE S NEGATIVE (NEGATIVE); OPIATE SCREEN URINE NEGATIVE (NEGATIVE); OXYCODONE STAT NEGATIVE (NEGATIVE); PROPOXYPHENE STAT NEGATIVE (NEGATIVE); TRICYCLIC ANTIDEPRESSANTS SCRE NEGATIVE (NEGATIVE)
[2020-11-17 11:44] LABS: GLUCOSE 98 MG/DL (70-105)
[2020-11-17 11:45] LABS: TOTAL PROTEIN 7.8 GM/DL (6.4-8.2)
[2020-11-17 11:46] LABS: BILIRUBIN,TOTAL 0.8 MG/DL (0.1-1.0); CARBON DIOXIDE 25 MMOL/L (21-32)
[2020-11-17 11:48] LABS: ALKALINE PHOSPHATASE 59 U/L (40-136); GFR ESTIMATED > 60
[2020-11-17 11:49] LABS: BUN/CREATININE RATIO 15
[2020-11-17 11:51] LABS: ALANINE AMINOTRANSFERASE 26 U/L (0-55); LIPASE 47 U/L (8-78)
[2020-11-17] MEDS ORDERED: KETOROLAC 30 MG/ML VIAL IVP ONE (12:00)
[2020-11-17 12:16] VITALS: BP 151/100
== END 2020-11-17 12:21 | disposition still patient (30) ==
LOC: EDUNIT# 10:49 → ER 10:51
DX: R10.84 Generalized abdominal pain (principal); F41.9 Anxiety disorder, unspecified; F32.9 Major depressive disorder, single episode, unspecified; E78.00 Pure hypercholesterolemia, unspecified; K21.9 Gastro-esophageal reflux disease without esophagitis; G40.909 Epilepsy, unspecified, not intractable, without status epilepticus; G89.29 Other chronic pain; M54.9 Dorsalgia, unspecified; F17.200 Nicotine dependence, unspecified, uncomplicated; Z88.5 Allergy status to narcotic agent; Z88.8 Allergy status to other drugs, medicaments and biological substances; Z79.82 Long term (current) use of aspirin; Z79.891 Long term (current) use of opiate analgesic
CPT/HCPCS: 36415; 80053; 80306; 81000; 83690; 85025

== ENCOUNTER → 2020-11-22 | Outpatient (CLI) | payer MEDICARE ==
--- NOTE | 2020-11-22 14:48 | Diagnostic Imaging Report ---
PROCEDURE: CT chest without contrast. TECHNIQUE: Multiple contiguous axial images were obtained through the chest without the use of intravenous contrast. Auto Exposure Controls were utilized during the CT exam to meet ALARA standards for radiation dose reduction. INDICATION: Left-sided chest pain. COMPARISON: There are no prior CT chest examinations available for comparison. FINDINGS: The CT abdomen/pelvis exam of 01/27/2019 did note a 1.3 cm densely calcified nodule in the right middle lobe. That finding is again evident on this study and no different. There is a second much smaller calcification in this region as well. I suspect that these findings are related to granuloma formation. There also appear to be a number of calcified granulomas about the right hilum and a few calcified granulomas in the left hilum. These findings were not included on the prior exam. There are mild emphysematous changes involving both lungs. There is no sign of failure, pneumonia or pleural effusion to indicate an acute abnormality. The heart size is within normal limits. Coronary artery calcifications are evident. The aorta is not abnormally dilated. There is no obvious mediastinal or hilar adenopathy. The thyroid gland where visualized is unremarkable. The bone windows show no evidence for a fracture or for a destructive lesion. The sections through the upper abdomen are unremarkable for an acute abnormality. IMPRESSION: 1. There are mild emphysematous changes involving both lungs, but there is no evidence for an acute cardiopulmonary abnormality. 2. The calcified granulomas in the right lung base seen previously are again evident and no different. There also appear to be a few calcified hilar nodes bilaterally. These findings are most likely sequela of prior granulomatous infection. Dictated by: Dictated on workstation # [id number]
== END ==
LOC: RAD 14:13
PROVIDERS: ATTEND Physician Assistant
DX: J43.9 Emphysema, unspecified (principal); J84.10 Pulmonary fibrosis, unspecified
CPT/HCPCS: 71250

== ENCOUNTER → 2020-12-12 | Outpatient (CLI) | payer MEDICARE ==
[~2020-12-12] MED LIST changes: +QUET25TA34 PO; -QUET25TA73 PO; +QUET50TA22 PO; -QUET50TA55 PO
--- NOTE | 2020-12-12 10:26 | Diagnostic Imaging Report ---
PROCEDURE: CT head without contrast. TECHNIQUE: Multiple contiguous axial images were obtained through the brain without the use of intravenous contrast. Auto Exposure Controls were utilized during the CT exam to meet ALARA standards for radiation dose reduction. INDICATION: Neuropathy. Comparison is made with prior head CT from 12/26/2018. Ventricles and sulci are within normal limits. No sulcal effacement, midline shift or hemorrhage is detected. Cisterns are patent. Visualized paranasal sinuses are clear apart from mild mucosal thickening of the ethmoid air cells. Mastoids are well aerated. IMPRESSION: 1. No acute intracranial process is detected. 2. Mild ethmoid sinus mucosal disease. Dictated by: Dictated on workstation # [id number]
== END ==
LOC: RAD 09:58
PROVIDERS: ATTEND Physician Assistant
DX: G62.9 Polyneuropathy, unspecified (principal); J32.2 Chronic ethmoidal sinusitis
CPT/HCPCS: 70450

== ENCOUNTER 2020-12-25 08:53 | Emergency (ER) | payer MEDICARE ==
[~2020-12-25] VITALS: Ht 172.2 cm; Wt 75.0 kg
[2020-12-25] MEDS ORDERED: KETOROLAC 60 MG/2 ML VIAL IM STA (09:48)
[2020-12-25 09:53] LABS: BILIRUBIN,URINE NEGATIVE (NEGATIVE); CLARITY,URINE CLEAR; COLOR,URINE YELLOW; GLUCOSE, URINE (UA) NEGATIVE (NEGATIVE); KETONES,URINE NEGATIVE (NEGATIVE); LEUKOCYTE ESTERASE ,URINE NEGATIVE (NEGATIVE); NITRITE,URINE NEGATIVE (NEGATIVE); PH,URINE 5.5 (5-9); PROTEIN,URINE NEGATIVE (NEGATIVE)
[2020-12-25 10:09] LABS: AMORPHOUS SEDIMENT,UR FEW AMOR URATES /LPF; BACTERIA,URINE NEGATIVE /HPF; HYALINE CASTS, URINE RARE /LPF; WBC,URINE RARE /HPF
--- NOTE | 2020-12-25 11:09 | ED GU-Male ---
General Chief Complaint: General Problems/Pain Stated Complaint: PAIN Nursing Triage Note: TO ROOM PER W/C REPORTS FOR SEVERAL MONTHS HAS HAD PROBLEM WITH LOW ABD PAIN AND URINATING HE REPORTS NOW WHEN HE URINATES IT HAS WHAT YOU HAVE AFTER SEX IN IT. HAS BEEN SEEN AT [facility] . FOR THIS. Source: patient Exam Limitations: no limitations History of Present Illness Date Seen by Provider: Dec 25, 2020 Time Seen by Provider: 09:45 Initial Comments Here with report of several months of lower abdominal pain that is intermittent and states that it feels like he is urinating sperm. Denies problems with erection or masturbation. States he does have some burning with urination. Pain is in the lower abdomen and seems to be moving around and he is not able to describe it well. States that sharp and causes him to twitch. Has been seen a few times before for similar without abnormal findings noted. Denies blood in his urine. Does have difficulty with vision. Denies diarrhea. States that his penis feels hot and it ewing a little when he urinates. Timing/Duration: getting worse, intermittent Severity/Quality: moderate, burning, sharp Location: suprapubic, urethral Radiation: suprapubic Activities at Onset: other (Urination) Prior Genitourinary Problems: none Sexual [place] History: not active Modifying Factors: Worsens With Urinating Associated Symptoms: abdominal pain, dysuria; No fever/chills, No lower back pain, No nausea/vomiting; urinary frequency Allergies and Home Medications Allergies Coded Allergies: codeine (Verified Allergy, Mild, NAUSEA, 06/07/20) cyclobenzaprine (Verified Allergy, Unknown, 06/07/20) ketamine (Verified Adverse Reaction, Unknown, DOES NOT LIKE THE WAY IT MA KES HIM FEEL., 06/07/20) Home Medications Amoxicillin/Potassium Clav 1 Each Tablet, 1 EACH PO BID Prescribed by: DANICA VARGHESE on 06/07/20 1034 Aspirin 81 Mg Tab.chew, 81 MG PO DAILY HOLD UNTILL THURSDAY Prescribed by: DANICA VARGHESE on 06/07/20 1034 Cyclobenzaprine HCl 10 Mg Tablet, 10 MG PO Q8H Prescribed by: MARIAM IZAGUIRRE on 10/27/20 1220 Diazepam 10 Mg Tablet, 10 MG PO BID, (Reported) Fluvoxamine Maleate 100 Mg Tablet, 100 MG PO BID, (Reported) Hydrocodone/Acetaminophen 1 Each Tablet, 1-2 EACH PO Q4H PRN for PAIN-SEVERE (8- 10) Prescribed by: DANICA VARGHESE on 06/07/20 1034 Meloxicam 15 Mg Tablet, 15 MG PO DAILY HOLD FOR ONW WEEK, 7 DAYS Prescribed by: DANICA VARGHESE on 06/07/20 1034 Pantoprazole Sodium 40 Mg Tablet.dr, 40 MG PO DAILY, (Reported) Simvastatin 40 Mg Tablet, 40 MG PO DAILY, (Reported) Tramadol HCl 50 Mg Tablet, 50 MG PO Q6H PRN for PAIN Prescribed by: MARIAM IZAGUIRRE on 10/27/20 1218 Tramadol HCl 50 Mg Tablet, 50 MG PO Q6H PRN for PAIN Prescribed by: MARIAM IZAGUIRRE on 10/27/20 1218 Tramadol HCl 50 Mg Tablet, 50 MG PO Q6H PRN for PAIN Prescribed by: MARIAM IZAGUIRRE on 10/27/20 1220 Trazodone HCl 150 Mg Tablet, 150 MG PO HS, (Reported) Patient Home Medication List Home Medication List Reviewed: Yes Review of Systems Review of Systems Constitutional: see HPI; No chills, No fever EENTM: no symptoms reported Respiratory: no symptoms reported Gastrointestinal: see HPI Genitourinary: see HPI Musculoskeletal: no symptoms reported Skin: no symptoms reported Psychiatric/Neurological: Anxiety; Denies Weakness Past Bjszsvt-Sacbqg-Zmfupe Hx Past Med/Social Hx: Reviewed Nursing Past Med/Soc Hx Patient Social History Alcohol Use: Denies Use Smoking Status: Never a Smoker Former Smoker, Quit: Aug 06, 1998 2nd Hand Smoke Exposure: Yes Recent Infectious Disease Expo: No Recent Hopitalizations: No Immunizations Up To Date Tetanus Booster (TDap): Less than 5yrs Date of Influenza Vaccine: Aug 03, 2017 Seasonal Allergies Seasonal Allergies: Yes Past Medical History Surgeries: Yes (bilat knee scope, bilat shoulder; nose) Orthopedic Respiratory: No Currently Using CPAP: No Currently Using BIPAP: No Cardiac: Yes High Cholesterol Neurological: Yes (alcohol-induced neuropathic disorder) Seizure Disorder Reproductive Disorders: No Sexually Transmitted Disease: No HIV/AIDS: No Genitourinary: No Gastrointestinal: Yes Gastroesophageal Reflux, Chronic Constipation Musculoskeletal: Yes Arthritis, Chronic Back Pain Endocrine: No HEENT: Yes (deviated septum) Loss of Vision: Bilateral Hearing Impairment: Hard of Hearing, Bilateral Hearing Aide Cancer: No Psychosocial: Yes ("ANGER ISSUES") Anxiety, Depression Integumentary: No Blood Disorders: No Adverse Reaction/Blood Tranf: No (N/A) Family Medical History Reviewed Nursing Family Hx No Pertinent Family Hx Physical Exam Vital Signs Vital Signs - First Documented 12/25/20 09:00 Temp 35.2 Pulse 75 Resp 18 B/P (MAP) 129/75 (93) Capillary Refill : Less Than 3 Seconds Height, Weight, BMI Height: 5'8.00" Weight: 165lbs. 4.0oz. 74.814009oh; 25.00 BMI Method:Stated General Appearance: WD/WN, no apparent distress Neck: full range of motion, supple Cardiovascular: regular rate, rhythm, no murmur Respiratory: lungs clear, normal breath sounds Gastrointestinal: non tender, soft Male: normal genitalia, no hernia; No erythema; other (Seems to be tender around the groin but no obvious redness, mass, lymphadenopathy, sores, wounds or penile discharge noted. No testicular mass noted.) Extremities: non-tender, normal inspection Neurologic/Psychiatric: alert, oriented x 3 Skin: normal color, warm/dry Progress/Results/Core Measures Suspected Sepsis Recent Fever Within 48 Hours: No Infection Criteria Present: None New/Unexplained Altered Menta: No Sepsis Screen: No Definite Risk SIRS Temperature: Pulse: 75 Respiratory Rate: 18 Blood Pressure 129 /75 Mean: 93 Results/Orders Lab Results Laboratory Tests Test 12/25/20 09:13 Range/Units Urine Color YELLOW Urine Clarity CLEAR Urine pH 5.5 5-9 Urine Specific [place] >=1.030 1.016-1.022 Urine Protein NEGATIVE NEGATIVE Urine Glucose (UA) NEGATIVE NEGATIVE Urine Ketones NEGATIVE NEGATIVE Urine Nitrite NEGATIVE NEGATIVE Urine Bilirubin NEGATIVE NEGATIVE Urine Urobilinogen 0.2 < = 1.0 MG/DL Urine Leukocyte Esterase NEGATIVE NEGATIVE Urine RBC (Auto) NEGATIVE NEGATIVE Urine RBC NONE /HPF Urine WBC RARE /HPF Urine Crystals PRESENT H /LPF Urine Amorphous Sediment FEW CRUZ URATES H /LPF Urine Bacteria NEGATIVE /HPF Urine Casts PRESENT /LPF Urine Hyaline Casts RARE /LPF Urine Mucus LARGE H /LPF Urine Culture Indicated NO My Orders Orders - NOEL DOYLE MD Ua Culture If Indicated (12/25/20 09:45) Ketorolac Injection (Toradol Injection) (12/25/20 09:48) Ct Abd/Pelvis Wo(Kidney Stone) (12/25/20 10:28) Vital Signs/I&O 12/25/20 09:00 Temp 35.2 Pulse 75 Resp 18 B/P (MAP) 129/75 (93) Capillary Refill : Less Than 3 Seconds Blood Pressure Mean: 93 Progress Note : Progress Note Seen and evaluated. UA ordered. Monitor patient. UA negative. 1045: CT abdomen pelvis without contrast ordered as urine does have mucus and he has had intermittent symptoms for 2 months. We will rule out stone. Patient agrees and request CT scan. We did give Toradol 60 mg IM. Monitor patient. 1120: No acute findings on CT. Patient has phone number for Dr. Fink and will follow up with him. We will give him that number again. I have encouraged him to drink more fluids. Discharged home with return precautions. Patient verbalized understanding of instructions and agreement with plan. Diagnostic Imaging Diagonstic Imaging: CT Plain Films/CT/US/NM/MRI: abdomen, pelvis Comments [facility], [place] NAME: FARHAD HEMPHILL [facility] REC#: [id number] PT STATUS: REG ER : 1955 PHYSICIAN: NOEL DOYLE MD ADMIT DATE: 12/25/20/ER Draft Date of Exam:12/25/20 CT ABD/PELVIS WO(KIDNEY STONE) EXAMINATION: CT Abdomen Pelvis without contrast. TECHNIQUE: Multiple contiguous axial images were obtained through the abdomen and pelvis without the use of intravenous contrast. All CT scans use one or more of the following dose optimizing techniques: automated exposure control, MA and/or KvP adjustment based on a patient size and exam type, or iterative reconstruction. HISTORY: Left flank pain. COMPARISON: CT abdomen and pelvis 01/27/2019 FINDINGS: Lung bases: The lung bases are clear. Solid organs: The liver is normal. The gallbladder is normal. There is no biliary ductal dilation. Pancreas is normal. Spleen is normal. Adrenal glands are normal. The kidneys are normal without visualized calculus or hydronephrosis. Bowel: The stomach and small bowel are normal without obstruction. There is scattered colonic diverticulosis. The appendix is normal. Peritoneum: There is no intraperitoneal free fluid or free air. No suspicious lymphadenopathy. Vasculature: Calcification of the aorta without aneurysm. Musculoskeletal: Bilateral L5 pars defects. Degenerative changes of the spine without suspicious osseous lesion or compression fracture. Pelvis: The prostate gland is normal. The urinary bladder is decompressed which limits evaluation. IMPRESSION: 1. No findings of renal calculus or hydronephrosis. 2. Colonic diverticulosis without findings of diverticulitis. Dictated on workstation # [id number] Dict: 12/25/20 1107 Trans: 12/25/20 1111 [id number] Interpreted by: MAGNUS ARANDA DO Electronically signed by: Departure Impression Primary Impression: Suprapubic abdominal pain Additional Impression: Dysuria Disposition: 01 HOME, SELF-CARE Condition: Improved Departure-Patient Inst. Decision time for Depature: 11:21 Referrals: [facility] [place] Primary Care Physician GINA CUI (Family) Primary Care Physician MACKENZIE FINK MD Patient Instructions: Pelvic Pain (DC), Dysuria, Adult (DC) Add. Discharge Instructions: All discharge instructions reviewed with patient and/or family. Voiced understanding. Drink plenty of fluids. You may take Tylenol/acetaminophen 1000 mg every 6-8 hours as needed for pain. You may take ibuprofen 600 mg every 8 hours as needed for pain. Follow-up with Dr. Fink or urologist of your choice for recheck and further evaluation. Return for worse pain, fever, vomiting, weakness or other concerns as needed. NOEL DOYLE MD Dec 25, 2020 11:09
--- NOTE | 2020-12-25 11:12 | Diagnostic Imaging Report ---
EXAMINATION: CT Abdomen Pelvis without contrast. TECHNIQUE: Multiple contiguous axial images were obtained through the abdomen and pelvis without the use of intravenous contrast. All CT scans use one or more of the following dose optimizing techniques: automated exposure control, MA and/or KvP adjustment based on a patient size and exam type, or iterative reconstruction. HISTORY: Left flank pain. COMPARISON: CT abdomen and pelvis 01/27/2019 FINDINGS: Lung bases: The lung bases are clear. Solid organs: The liver is normal. The gallbladder is normal. There is no biliary ductal dilation. Pancreas is normal. Spleen is normal. Adrenal glands are normal. The kidneys are normal without visualized calculus or hydronephrosis. Bowel: The stomach and small bowel are normal without obstruction. There is scattered colonic diverticulosis. The appendix is normal. Peritoneum: There is no intraperitoneal free fluid or free air. No suspicious lymphadenopathy. Vasculature: Calcification of the aorta without aneurysm. Musculoskeletal: Bilateral L5 pars defects. Degenerative changes of the spine without suspicious osseous lesion or compression fracture. Pelvis: The prostate gland is normal. The urinary bladder is decompressed which limits evaluation. IMPRESSION: 1. No findings of renal calculus or hydronephrosis. 2. Colonic diverticulosis without findings of diverticulitis. Dictated by: Dictated on workstation # [id number]
[2020-12-25 11:32] VITALS: BP 135/111
== END 2020-12-25 11:32 | disposition home or self-care (01) ==
LOC: EDUNIT# 08:53 → ER 08:55
DX: R10.30 Lower abdominal pain, unspecified (principal); R30.0 Dysuria; G89.29 Other chronic pain; M54.9 Dorsalgia, unspecified; K21.9 Gastro-esophageal reflux disease without esophagitis; F41.9 Anxiety disorder, unspecified; F32.9 Major depressive disorder, single episode, unspecified; E78.00 Pure hypercholesterolemia, unspecified; Z87.891 Personal history of nicotine dependence; Z77.22 Contact with and (suspected) exposure to environmental tobacco smoke (acute) (chronic); Z88.5 Allergy status to narcotic agent; Z88.8 Allergy status to other drugs, medicaments and biological substances; Z79.82 Long term (current) use of aspirin; Z79.891 Long term (current) use of opiate analgesic
CPT/HCPCS: 74176; 81000

== ENCOUNTER → 2021-08-31 | Outpatient (CLI) | payer MEDICARE ==
[~2021-08-31] MED LIST changes: -QUET25TA34 PO; +QUET25TA35 PO; -QUET50TA22 PO; +QUET50TA23 PO
--- NOTE | 2021-08-31 10:19 | Diagnostic Imaging Report ---
INDICATION: Neck pain. TIME OF EXAM: 10:16 AM Frontal and lateral views of the cervical spine were obtained. Curvature alignment is normal. There are postoperative changes of ACDF with anterior plate and screws transfixing C4-C7 levels. Hardware appears to be intact. IMPRESSION: Postop changes of ACDF C4-C7. No definite complicating features are detected. Dictated by: Dictated on workstation # [id number]
== END ==
LOC: RAD 09:54
PROVIDERS: ATTEND Nurse Practitioner Family
DX: M50.323 Other cervical disc degeneration at C6-C7 level (principal); Z98.1 Arthrodesis status
CPT/HCPCS: 72040

== ENCOUNTER 2021-09-12 22:16 | Emergency (ER) | payer MEDICARE ==
[~2021-09-12] VITALS: Ht 175 cm; Wt 81.0 kg
[~2021-09-12 22:16] MED LIST changes: -CETI10TA23 PO; +CETI10TA24 PO; +CYCL10TA25 PO; +FLUV100T21 PO; -FLUV100T3 PO; +FLUV50TA23 PO; -FLUV50TA3 PO
[2021-09-12 22:50] LABS: BASOPHILS # (AUTO) 0.1 10^3/uL (0.0-0.1); BASOPHILS % (AUTO) 1 % (0-10); EOSINOPHILS # (AUTO) 0.8 10^3/uL (0.0-0.3); EOSINOPHILS % (AUTO) 8 % (0-10); HEMATOCRIT 41 % (40-54); HEMOGLOBIN 14.7 g/dL (13.3-17.7); LYMPHOCYTES # (AUTO) 3.4 10^3/uL (1.0-4.0); LYMPHOCYTES % (AUTO) 33 % (12-44); MEAN CORPUSCULAR HEMOGLOBIN 34 pg (25-34); MEAN CORPUSCULAR HGB CONC 36 g/dL (32-36); MEAN CORPUSCULAR VOLUME 94 fL (80-99); MEAN PLATELET VOLUME 10.4 fL (9.0-12.2); MONOCYTES # (AUTO) 1.5 10^3/uL (0.0-1.0); MONOCYTES % (AUTO) 15 % (0-12); NEUTROPHILS # (AUTO) 4.4 10^3/uL (1.8-7.8); NEUTROPHILS % (AUTO) 44 % (42-75); PLATELET COUNT 230 10^3/uL (130-400); WHITE BLOOD COUNT 10.2 10^3/uL (4.3-11.0)
[2021-09-12 23:00] LABS: CHLORIDE 106 MMOL/L (98-107); POTASSIUM 3.5 MMOL/L (3.6-5.0); SODIUM 139 MMOL/L (135-145)
[2021-09-12] MEDS ORDERED: KETOROLAC 30 MG/ML VIAL IVP ONE (23:00)
[2021-09-12 23:01] LABS: CALCIUM 9.4 MG/DL (8.5-10.1); GLUCOSE 99 MG/DL (70-105)
[2021-09-12 23:03] LABS: CARBON DIOXIDE 21 MMOL/L (21-32)
[2021-09-12 23:05] LABS: CREATININE SERUM 0.85 MG/DL (0.60-1.30); GFR ESTIMATED 91
[2021-09-12 23:06] LABS: BUN/CREATININE RATIO 27
[2021-09-12 23:08] LABS: CREATINE KINASE 134 U/L (30-200)
--- NOTE | 2021-09-12 23:14 | ED Chest Pain ---
General Chief Complaint: Chest Pain Stated Complaint: CHEST PAIN Nursing Triage Note: PT TO ER WITH C/O SHARP L CHEST PAIN THAT HAS PROGRESSED FOR ABOUT 10 DAYS. PT DROVE HIMSELF TO ER WITH 10/10 PAIN. PT HAS NO HX OF CARDIAC PROBLEMS Source: patient Exam Limitations: no limitations History of Present Illness Date Seen by Provider: Sep 12, 2021 Time Seen by Provider: 22:30 Initial Comments Patient is a 66-year-old male who presents to the emergency department today with a chief complaint of left-sided lower rib pain. Patient states he has had this pain intermittently for about 10 days and consistently since about 2 PM this afternoon. Patient states it hurts to take a deep breath and hurts to touch his left chest. He did have a fall he states in 1996 which caused him some injury to the chest wall. Patient denies any associated symptoms of nausea, diaphoresis, shortness of breath. He has taken antacids and Tums without much relief of symptoms. He did take a hydrocodone earlier today which he states helped a little bit. He has no history of coronary artery disease. He does not smoke (quit when he was 42yo). He denies any recent fevers, chills, or congestion. He is Covid vaccinated, awaiting his booster. He has had a little diarrhea recently. Some muscle cramping. Normal urinary output. Complains of an "emphysema cough". All other review of systems reviewed and negative except as stated. Timing/Duration: 4-6 hours Severity/Quality: severe, sharp Location: other (left lower chest ) Radiation: no radiation Activities at Onset: none ASA po GARAGE DOOR HANGER: No NTG SL GARAGE DOOR HANGER: No Associated Symptoms: denies symptoms Allergies and Home Medications Allergies Coded Allergies: codeine (Verified Allergy, Mild, NAUSEA, 06/07/20) cyclobenzaprine (Verified Allergy, Unknown, 06/07/20) ketamine (Verified Adverse Reaction, Unknown, DOES NOT LIKE THE WAY IT MAKES HIM FEEL., 06/07/20) Patient Home Medication List Home Medication List Reviewed: Yes Amoxicillin/Potassium Clav (Augmentin 500-125 Tablet) 1 Each Tablet, 1 EACH PO BID Prescribed by: DANICA VARGHESE on 06/07/20 1034 Aspirin (Aspirin) 81 Mg Tab.chew, 81 MG PO DAILY Prescribed by: DANICA VARGHESE on 06/07/20 1034 Cyclobenzaprine HCl (Cyclobenzaprine HCl) 10 Mg Tablet, 10 MG PO Q8H Prescribed by: MARIAM IZAGUIRRE on 10/27/20 1220 Diazepam (Diazepam) 10 Mg Tablet, 10 MG PO BID, (Reported) Entered as Reported by: JOS APPLE on 07/19/19 0905 Fluvoxamine Maleate (Fluvoxamine Maleate) 100 Mg Tablet, 100 MG PO BID, (Reported) Entered as Reported by: JOS APPLE on 06/04/20 1029 Hydrocodone/Acetaminophen (Hydrocodone-Acetamin 5-325 mg) 1 Each Tablet, 1-2 EACH PO Q4H PRN for PAIN-SEVERE (8-10) Prescribed by: DANICA VARGHESE on 06/07/20 1034 Meloxicam (Meloxicam) 15 Mg Tablet, 15 MG PO DAILY Prescribed by: DANICA VARGHESE on 06/07/20 1034 Pantoprazole Sodium (Pantoprazole Sodium) 40 Mg Tablet.dr, 40 MG PO DAILY, (Reported) Entered as Reported by: JOS APPLE on 07/19/19 0905 Simvastatin (Simvastatin) 40 Mg Tablet, 40 MG PO DAILY, (Reported) Entered as Reported by: JOHNIE GARVIN on 02/02/19 1322 Tramadol HCl (Tramadol HCl) 50 Mg Tablet, 50 MG PO Q6H PRN for PAIN Prescribed by: MARIAM IZAGUIRRE on 10/27/20 1218 Tramadol HCl (Tramadol HCl) 50 Mg Tablet, 50 MG PO Q6H PRN for PAIN Prescribed by: MARIAM IZAGUIRRE on 10/27/20 1218 Tramadol HCl (Tramadol HCl) 50 Mg Tablet, 50 MG PO Q6H PRN for PAIN Prescribed by: MARIAM IZAGUIRRE on 10/27/20 1220 Trazodone HCl (Trazodone HCl) 150 Mg Tablet, 150 MG PO HS, (Reported) Entered as Reported by: JOHNIE GARVIN on 02/02/19 1322 Review of Systems Review of Systems Constitutional: see HPI EENTM: No Symptoms Reported Respiratory: No Symptoms Reported Cardiovascular: Chest Pain Gastrointestinal: Diarrhea Genitourinary: No Symptoms Reported Musculoskeletal: muscle cramps Skin: no symptoms reported Psychiatric/Neurological: Anxiety All Other Systems Reviewed Negative Unless Noted: Yes Past Trrymzr-Pjmagv-Bensgt Hx Patient Social History Tobacco Use?: No Substance use?: No Alcohol Use?: No Immunizations Up To Date Tetanus Booster (TDap): Less than 5yrs Influenza Vaccine Up-to-Date: Yes; Up-to-Date First/Initial COVID19 Vaccinat: APRIL 2021 Second COVID19 Vaccination Mendel: MAY 2021 COVID19 Vaccine [employer]: DOESNT KNOW Seasonal Allergies Seasonal Allergies: Yes Past Medical History Surgery/Hospitalization HX: NECK SURGERY IN MAY Surgeries: Yes (bilat knee scope, bilat shoulder; nose) Orthopedic Respiratory: No Currently Using CPAP: No Currently Using BIPAP: No Cardiac: Yes High Cholesterol Neurological: Yes (alcohol-induced neuropathic disorder) Seizure Disorder Reproductive Disorders: No Sexually Transmitted Disease: No HIV/AIDS: No Genitourinary: No Gastrointestinal: Yes Gastroesophageal Reflux, Chronic Constipation Musculoskeletal: Yes Arthritis, Chronic Back Pain Endocrine: No HEENT: Yes (deviated septum) Loss of Vision: Bilateral Hearing Impairment: Hard of Hearing, Bilateral Hearing Aide Cancer: No Psychosocial: Yes ("ANGER ISSUES") Anxiety, Depression Integumentary: No Blood Disorders: No Adverse Reaction/Blood Tranf: No (N/A) Family Medical History No Pertinent Family Hx Physical Exam Vital Signs Vital Signs - First Documented 09/12/21 22:17 Temp 35.9 Pulse 74 Resp 27 B/P (MAP) 136/99 (111) Pulse Ox 100 Capillary Refill : Height, Weight, BMI Height: 5'8.00" Weight: 165lbs. 4.0oz. 74.972816sh; 26.00 BMI Method:Stated General Appearance: No Apparent Distress, WD/WN, Anxious HEENT: PERRL/EOMI Neck: Other (wearing an [place] [employer] cervical collar (had surgery to his neck in May)) Respiratory: Lungs Clear, Normal Breath Sounds, No Accessory Muscle Use, No Respiratory Distress, Other (tenderness to palpation the left lower lateral ribs) Cardiovascular: Regular Rate, Rhythm, Normal Peripheral Pulses Gastrointestinal: Non Tender, Soft Extremity: Normal Capillary Refill, Normal Inspection, Normal Range of Motion, No Pedal Edema Neurologic/Psychiatric: Alert, Oriented x3, No Motor/Sensory Deficits, Normal Mood/Affect Skin: Normal Color, Warm/Dry Progress/Results/Core Measures Results/Orders Lab Results Laboratory Tests Test 09/12/21 22:30 Range/Units White Blood Count 10.2 4.3-11.0 10^3/uL Red Blood Count 4.36 4.30-5.52 10^6/uL Hemoglobin 14.7 13.3-17.7 g/dL Hematocrit 41 40-54 % Mean Corpuscular Volume 94 80-99 fL Mean Corpuscular Hemoglobin 34 25-34 pg Mean Corpuscular Hemoglobin Concent 36 32-36 g/dL Red Cell Distribution Width 12.0 10.0-14.5 % Platelet Count 230 130-400 10^3/uL Mean Platelet Volume 10.4 9.0-12.2 fL Immature Granulocyte % (Auto) 0 % Neutrophils (%) (Auto) 44 42-75 % Lymphocytes (%) (Auto) 33 12-44 % Monocytes (%) (Auto) 15 H 0-12 % Eosinophils (%) (Auto) 8 0-10 % Basophils (%) (Auto) 1 0-10 % Neutrophils # (Auto) 4.4 1.8-7.8 10^3/uL Lymphocytes # (Auto) 3.4 1.0-4.0 10^3/uL Monocytes # (Auto) 1.5 H 0.0-1.0 10^3/uL Eosinophils # (Auto) 0.8 H 0.0-0.3 10^3/uL Basophils # (Auto) 0.1 0.0-0.1 10^3/uL Immature Granulocyte # (Auto) 0.0 0.0-0.1 10^3/uL Sodium Level 139 135-145 MMOL/L Potassium Level 3.5 L 3.6-5.0 MMOL/L Chloride Level 106 98-107 MMOL/L Carbon Dioxide Level 21 21-32 MMOL/L Anion Gap 12 5-14 MMOL/L Blood Urea Nitrogen 23 H 7-18 MG/DL Creatinine 0.85 0.60-1.30 MG/DL Estimat Glomerular Filtration Rate 91 BUN/Creatinine Ratio 27 Glucose Level 99 70-105 MG/DL Calcium Level 9.4 8.5-10.1 MG/DL Total Creatine Kinase 134 30-200 U/L Troponin I < 0.028 <0.028 NG/ML My Orders Orders - REHANA YODER MD Ed Iv/Invasive Line Start (09/12/21 22:46) Cbc With Automated Diff (09/12/21 22:46) Basic Metabolic Panel (09/12/21 22:46) Troponin I (09/12/21 22:46) Creatine Kinase (09/12/21 22:46) Ekg Tracing (09/12/21 22:46) Chest 1 View, Ap/Pa Only (09/12/21 22:46) Ketorolac Injection (Toradol Injection) (09/12/21 23:00) Medications Given in ED Current Medications Medications Dose Ordered Sig/Marian Route Start Time Stop Time Status Last Admin Dose Admin Ketorolac Tromethamine 15 mg ONCE ONCE IVP 09/12/21 23:00 09/12/21 23:01 DC 09/12/21 23:07 15 MG Vital Signs/I&O 09/12/21 22:17 Temp 35.9 Pulse 74 Resp 27 B/P (MAP) 136/99 (111) Pulse Ox 100 Blood Pressure Mean: 111 Progress Progress Note : Time: 23:25 Progress Note Patient seen and evaluated, left-sided chest pain that sounds musculoskeletal in nature. Patient has not had ongoing pain for greater than 6 hours in the setting of a normal appearing EKG, normal laboratory studies including troponin. Normal chest x-ray without evidence of infiltrate or effusion or other abnormality. Patient's vital signs have been stable. He was treated in the emergency department with 15 mg of Toradol intravenously. Patient has no clinical or objective findings to warrant further studies from the emergency department at this time. He will be sent home and encouraged to take Tylenol and ibuprofen for his pain. Return precautions given. He verbalized understanding, all questions are sought and answered. Patient is stable for discharge. Initial ECG Impression Date: Sep 12, 2021 Initial ECG Impression Time: 22:19 Initial ECG Rate: 68 Initial ECG Rhythm: Normal Sinus Initial ECG Intervals: Normal Initial ECG Intervals MA 136 QRS 118 QTc 406 Initial ECG Impression: Normal Diagnostic Imaging Diagonstic Imaging: Xray Plain Films/CT/US/NM/MRI: chest Comments Chest xray - reviewed by me, stable right sided granuloma, no infiltrates, effusions; normal mediastinal structures; normal bony structures Departure Impression Primary Impression: Chest wall pain Disposition: HOME, SELF-CARE Condition: Stable Departure-Patient Inst. Decision time for Depature: 23:27 Referrals: [facility]YOLANDE (PCP) Primary Care Physician GINA CUI (Family) Primary Care Physician Patient Instructions: Chest Pain That Is Not Caused by the Heart (DC) Add. Discharge Instructions: You can use a heating pad to the area of your chest wall that is sore. You can also take rhlw-ubm-ukpvepy Tylenol or ibuprofen as needed. I would recommend 3 tablets of dlns-rax-zwrwjbo ibuprofen which is 600 mg every 6-8 hours with food as needed for pain do this for no more than two or 3 days in a row. If you develop a fever, shortness of breath, any other concerning symptoms, please come back to the emergency department for reevaluation. Please follow-up with your primary care provider. Copy Copies To 1: JOCELYNE JAIMES KATHRYN M MD Sep 12, 2021 23:14
--- NOTE | 2021-09-12 23:37 | Diagnostic Imaging Report ---
PATIENT HISTORY: chest pain. TECHNIQUE: Single frontal view of the chest. COMPARISON: 04/26/2015 FINDINGS: The lung volumes are normal. No focal consolidation is seen. There is a calcified granuloma in the right lung base. No large pleural effusion or pneumothorax is seen. The cardiomediastinal silhouette is normal in size and contour. No acute osseous abnormality is seen. IMPRESSION: No acute pulmonary abnormality seen. Dictated by: Dictated on workstation # [id number]
[2021-09-12 23:56] VITALS: BP 102/76
== END 2021-09-12 23:56 | disposition home or self-care (01) ==
LOC: EDUNIT# 22:16 → ER 22:19
DX: R07.89 Other chest pain (principal); F41.9 Anxiety disorder, unspecified; F32.9 Major depressive disorder, single episode, unspecified; E78.00 Pure hypercholesterolemia, unspecified; G40.909 Epilepsy, unspecified, not intractable, without status epilepticus; K21.9 Gastro-esophageal reflux disease without esophagitis; G89.29 Other chronic pain; M54.9 Dorsalgia, unspecified; Z79.82 Long term (current) use of aspirin; Z79.899 Other long term (current) drug therapy; Z79.891 Long term (current) use of opiate analgesic
CPT/HCPCS: 36415; 71045; 80048; 82550; 84484; 85025; 93005

== ENCOUNTER → 2021-10-10 | Outpatient (CLI) | payer MEDICARE ==
--- NOTE | 2021-10-10 18:19 | Diagnostic Imaging Report ---
INDICATION: Left-sided chest and rib pain COMPARISON: None FINDINGS: Three views of the left ribs were obtained. There is no fracture, dislocation, or other acute bony abnormality identified. Visualized portions of the left lung are clear. The surrounding soft tissues appear unremarkable. No radiopaque foreign bodies are seen. IMPRESSION: No healing or displaced left-sided rib fractures. Dictated by: Dictated on workstation # [id number]
== END ==
LOC: RAD 15:13
PROVIDERS: ATTEND Internal Medicine Cardiovascular Disease
DX: R94.31 Abnormal electrocardiogram [ECG] [EKG] (principal); R07.81 Pleurodynia
CPT/HCPCS: 71100

== ENCOUNTER → 2021-10-16 | Outpatient (CLI) | payer MEDICARE | LOC: CARD 09:00 | PROVIDERS: ATTEND Internal Medicine Cardiovascular Disease | DX: I51.7 Cardiomegaly (principal) | CPT/HCPCS: 93306 ==

== ENCOUNTER → 2021-11-28 | Outpatient (CLI) | payer MEDICARE ==
[~2021-11-28] MED LIST changes: +CATHETER FLUSH 10 ML SYR IV PRN
[2021-11-28 09:06] VITALS: BP 125/83
--- NOTE | 2021-11-29 10:21 | NUCLEAR STRESS TEST ---
TREADMILL NUCLEAR STRESS TEST Date of procedure: 11/28/2021. Primary care provider: JENNIFER Moore. Admitting physician: Sumeet Zhang Jr., MD. INDICATION: Abnormal electrocardiogram. BASELINE ELECTROCARDIOGRAM: Sinus bradycardia at 47 bpm with nonspecific intraventricular conduction delay. STRESS TEST PROCEDURE: The patient was exercised for a total of 11 minutes and 0 seconds of the standard Raymundo protocol achieving a maximum MET level of 12.5. The resting heart rate was 47 bpm and the peak heart rate was 137 bpm, which represents 87% of the maximum predicted heart rate. The resting blood pressure was 155/96 mmHg and the peak blood pressure was 166/98 mmHg. This represents a normal heart rate and a blunted blood pressure response to exercise. The test was stopped due to target heart rate attained. There was no chest discomfort during the test. There were no arrhythmias during the test. There was inferolateral T wave inversion that developed in recovery and then improved. The patient exhibited excellent exercise capacity for age. NUCLEAR PROCEDURE: The patient was administered 8 mCi of intravenous technetium 99m Tetrofosmin at rest for the rest images. The patient was subsequently administered 24.4 mCi of intravenous technetium 99 M Tetrofosmin at peak stress for the stress images. Following an appropriate wait after each injection, imaging was obtained. The images were subsequently processed and reformatted in the usual views. Gated imaging was obtained. The image quality was adequate with a mild degree of gastrointestinal attenuation artifact. CT attenuation correction was used as a adjunct to standard imaging. Both the corrected and uncorrected images were reviewed for interpretation. NUCLEAR RESULTS: There was normal myocardial perfusion in all segments without evidence of infarction or ischemia. There was normal left ventricular chamber size with an end-diastolic volume of 108 mL and an end-systolic volume of 46 mL. There was no evidence of transient ischemic dilatation. The TID ratio was 0.87. There was normal wall motion in all segments with a calculated ejection fraction of 57%. IMPRESSION: 1. Normal heart rate and a blunted blood pressure response to exercise. 2. There was no chest discomfort or arrhythmias during the test. 3. There was T wave inversion that developed in the inferolateral leads in recovery and then improved. This is considered a nonspecific finding. 4. The patient exhibited excellent exercise capacity for age at 11 minutes of the Raymundo protocol. 5. There was normal myocardial perfusion in all segments without evidence of infarction or ischemia. 6. There was normal wall motion in all segments with a calculated ejection fraction of 57%. Certain portions of this document may have been dictated utilizing voice recognition technology. Inherent to this technology, typographical and grammatical errors may exist. As much as I am diligent to identify and correct these mistakes, some errors may remain in the document. SUMEET ZHANG JR, MD Nov 29, 2021 10:21
== END ==
LOC: CARD 07:45
PROVIDERS: ATTEND Internal Medicine Cardiovascular Disease
DX: R94.31 Abnormal electrocardiogram [ECG] [EKG] (principal)
CPT/HCPCS: 78452; 93017; A9502

== ENCOUNTER → 2022-02-13 | Outpatient (CLI) | payer MEDICARE ==
[~2022-02-13] MED LIST changes: -CATHETER FLUSH 10 ML SYR IV PRN
--- NOTE | 2022-02-13 18:22 | Diagnostic Imaging Report ---
EXAMINATION: Lumbar spine MRI without contrast, 02/13/2022. TECHNIQUE: Multiplanar, multisequence MRI of the lumbar spine was performed without contrast. INDICATION: Degenerative disc disease. Osteoarthritis. Left leg pain. COMPARISON: 08/18/2018. FINDINGS: There is stable-appearing grade 1 anterolisthesis of L5 on S1. The remaining alignment is maintained. Tip of the conus is unremarkable in appearance and location. No compression fractures appreciated. L1-L2: There is intervertebral disc space narrowing, disc desiccation, and a mild broad-based bulging disc with bilateral facet and ligamentum flavum hypertrophy. There is no central stenosis. There is moderate bilateral neural foraminal narrowing. L2-L3: There is disc desiccation with a mild broad-based bulging disc. There is bilateral facet and ligamentum flavum hypertrophy. No central stenosis. There is duemvknv-ds-izfkql bilateral neural foraminal narrowing. L3-L4: There is disc desiccation with a left paracentral broad-based bulging disc. There is bilateral facet and ligamentum flavum hypertrophy. There is flattening of the ventral thecal sac with mild narrowing of the left lateral recess. No significant central narrowing. There is severe left and vviplvig-tg-srfhey right neural foraminal stenosis, worsened from previous imaging. L4-L5: There is disc desiccation with a right paracentral broad-based bulging disc. There is bilateral facet and ligamentum flavum hypertrophy. There is flattening of the ventral thecal sac with mild central narrowing. There is mild narrowing of the lateral recesses bilaterally. There is severe left and nmydjifj-cs-gpnlim right neural foraminal stenosis which appears advanced since previous imaging. L5-S1: There is intervertebral disc space narrowing, disc desiccation, and a broad-based bulging disc with bilateral facet hypertrophy. There is no central narrowing. There is moderate bilateral neural foraminal stenosis. Visualized intra-abdominal structures are unremarkable. IMPRESSION: 1. Multilevel diffuse degenerative findings, overall advanced when compared to previous examination. Dictated by: Dictated on workstation # [id number]
== END ==
LOC: RAD 14:45
PROVIDERS: ATTEND Physician Assistant
DX: M47.26 Other spondylosis with radiculopathy, lumbar region (principal); M47.817 Spondylosis without myelopathy or radiculopathy, lumbosacral region; M51.16 Intervertebral disc disorders with radiculopathy, lumbar region; M51.27 Other intervertebral disc displacement, lumbosacral region; M51.37 Other intervertebral disc degeneration, lumbosacral region; M48.061 Spinal stenosis, lumbar region without neurogenic claudication; M48.07 Spinal stenosis, lumbosacral region
CPT/HCPCS: 72148

== ENCOUNTER 2022-06-03 09:17 | Emergency (ER) | payer MEDICARE ==
[~2022-06-03] VITALS: Ht 172 cm; Wt 72.0 kg
[2022-06-03 09:20] VITALS: BP 138/100
--- NOTE | 2022-06-03 09:58 | ED Lower Extremity ---
General Chief Complaint: Lower Extremity Stated Complaint: SIATIC NERVE PAIN Nursing Triage Note: ARRIVED VIA WC TO ROOM 08 WITH COMPLAINTS OF LEFT SIDED SCIATICA PAIN STARTING ON SAT. STATES HE HAS BEEN TAKING TYLENOL WHICH HAS NOT HELPING. Source: patient Exam Limitations: no limitations History of Present Illness Date Seen by Provider: Jun 03, 2022 Time Seen by Provider: 09:40 Initial Comments Patient is a 67-year-old male who presents to the emergency department with a chief complaint of "my sciatic nerve hurts". Patient states that he has had pain in the left hip/low back and down the left leg for 4 days. He states that he was recently "cleaning up a curb" doing a lot of bending and stooping. He has had this symptoms like this in the past, the last episode was 3 months ago. He states he has been taking Tylenol [id number] without any relief of symptoms. States that laying flat hurts worse. Keeping the leg straight is the most comfortable position. No numbness in the left leg. No weakness. No direct trauma to the left hip or buttock. He is very apprehensive, agitated. Holding onto his left thigh. Not very compliant with direction as far as allowing me to examine him. Prefers to keep the leg elevated at approximately 45 degrees off of the bed, in extension and abducted to his right side. When asking his medical history, medications he states "it is all in my records". All other review of systems reviewed and negative except as stated. Onset: other (4 days) Severity: severe Pain/Injury Location: left leg Method of Injury: other (Overuse) Modifying Factors: Worse With Movement Allergies and Home Medications Allergies Coded Allergies: codeine (Verified Allergy, Mild, NAUSEA, 06/07/20) cyclobenzaprine (Verified Allergy, Unknown, 06/07/20) ketamine (Verified Adverse Reaction, Unknown, DOES NOT LIKE THE WAY IT MAKES HIM FEEL., 06/07/20) Patient Home Medication List Home Medication List Reviewed: Yes Amoxicillin/Potassium Clav (Augmentin 500-125 Tablet) 1 Each Tablet, 1 EACH PO BID Prescribed by: DANICA VARGHESE on 06/07/20 1034 Aspirin (Aspirin) 81 Mg Tab.chew, 81 MG PO DAILY Prescribed by: DANICA VARGHESE on 06/07/20 1034 Cyclobenzaprine HCl (Cyclobenzaprine HCl) 10 Mg Tablet, 10 MG PO Q8H Prescribed by: MARIAM IZAGUIRRE on 10/27/20 1220 Diazepam (Diazepam) 10 Mg Tablet, 10 MG PO BID, (Reported) Entered as Reported by: JOS APPLE on 07/19/19 0905 Fluvoxamine Maleate (Fluvoxamine Maleate) 100 Mg Tablet, 100 MG PO BID, (Reported) Entered as Reported by: JOS APPLE on 06/04/20 1029 Hydrocodone/Acetaminophen (Hydrocodone-Acetamin 5-325 mg) 1 Each Tablet, 1-2 EACH PO Q4H PRN for PAIN-SEVERE (8-10) Prescribed by: DANICA VARGHESE on 06/07/20 1034 Meloxicam (Meloxicam) 15 Mg Tablet, 15 MG PO DAILY Prescribed by: DANICA VARGHESE on 06/07/20 1034 Pantoprazole Sodium (Pantoprazole Sodium) 40 Mg Tablet.dr, 40 MG PO DAILY, (Reported) Entered as Reported by: JOS APPLE on 07/19/19 0905 Simvastatin (Simvastatin) 40 Mg Tablet, 40 MG PO DAILY, (Reported) Entered as Reported by: JOHNIE GARVIN on 02/02/19 1322 Tramadol HCl (Tramadol HCl) 50 Mg Tablet, 50 MG PO Q6H PRN for PAIN Prescribed by: MARIAM IZAGUIRRE on 10/27/20 1218 Tramadol HCl (Tramadol HCl) 50 Mg Tablet, 50 MG PO Q6H PRN for PAIN Prescribed by: MARIAM IZAGUIRRE on 10/27/20 1218 Tramadol HCl (Tramadol HCl) 50 Mg Tablet, 50 MG PO Q6H PRN for PAIN Prescribed by: MARIAM IZAGUIRRE on 10/27/20 1220 Trazodone HCl (Trazodone HCl) 150 Mg Tablet, 150 MG PO HS, (Reported) Entered as Reported by: JOHNIE GARVIN on 02/02/19 1322 Review of Systems Constitutional: see HPI EENTM: no symptoms reported Respiratory: no symptoms reported Cardiovascular: no symptoms reported Gastrointestinal: no symptoms reported Genitourinary: no symptoms reported Musculoskeletal: muscle pain, muscle stiffness, muscle cramps Skin: no symptoms reported Psychiatric/Neurological: No Symptoms Reported All Other Systems Reviewed Negative Unless Noted: Yes Past Ojmnvun-Kfwhxs-Zmtxor Hx Patient Social History Tobacco Use?: No Alcohol Use?: No Immunizations Up To Date Tetanus Booster (TDap): Less than 5yrs First/Initial COVID19 Vaccinat: APRIL 2021 Second COVID19 Vaccination Mendel: MAY 2021 Third COVID19 Vaccination Date: COVID19 Vaccine Deicer Finisher: UKRASHAD Seasonal Allergies Seasonal Allergies: Yes Past Medical History Surgery/Hospitalization HX: NECK SURGERY IN MAY Surgeries: Yes (bilat knee scope, bilat shoulder; nose) Orthopedic Respiratory: No Currently Using CPAP: No Currently Using BIPAP: No Cardiac: Yes High Cholesterol Neurological: Yes (alcohol-induced neuropathic disorder) Seizure Disorder Reproductive Disorders: No Sexually Transmitted Disease: No HIV/AIDS: No Genitourinary: No Gastrointestinal: Yes Gastroesophageal Reflux, Chronic Constipation Musculoskeletal: Yes Arthritis, Chronic Back Pain Endocrine: No HEENT: Yes (deviated septum) Loss of Vision: Bilateral Hearing Impairment: Hard of Hearing, Bilateral Hearing Aide Cancer: No Psychosocial: Yes ("ANGER ISSUES") Anxiety, Depression Integumentary: No Blood Disorders: No Adverse Reaction/Blood Tranf: No (N/A) Family Medical History No Pertinent Family Hx Physical Exam Vital Signs Vital Signs - First Documented 06/03/22 09:20 Temp 36.3 Pulse 72 Resp 16 B/P (MAP) 138/100 (113) Pulse Ox 96 O2 Delivery Room Air Capillary Refill : Less Than 3 Seconds Height, Weight, BMI Height: 5'8.00" Weight: 165lbs. 4.0oz. [id number]; 24.00 BMI Method:Stated General Appearance: moderate distress, thin HEENT: PERRL/EOMI Cardiovascular: regular rate, rhythm Respiratory: lungs clear, normal breath sounds, no respiratory distress, no accessory muscle use Gastrointestinal: non tender, soft Back: normal inspection, other (No reproducible midline vertebral tenderness. No overlying rashes. No palpable muscle spasms. No percussive tenderness to the lower spine. Patient indicates his pain is at the lumbosacral junction. Also the posterior superior iliac crest on the left; no direct tenderness over the left sciatic n) Hips: bilateral hip non-tender, bilateral hip normal inspection, bilateral hip normal range of motion, bilateral hip no evidence of injury Legs: bilateral leg normal inspection, bilateral leg normal range of motion; left leg other (muscle fasciculations noted in the left thigh) Knees: bilateral knee non-tender, bilateral knee normal inspection, bilateral knee normal range of motion, bilateral knee no evidence of injury Ankles: bilateral ankle non-tender, bilateral ankle normal inspection, bilateral ankle normal range of motion, bilateral ankle no evidence of injury Feet: bilateral foot non-tender, bilateral foot normal inspection, bilateral foot normal range of motion, bilateral foot no evidence of injury 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, no motor/sensory deficits, alert, normal mood/affect, oriented x 3, other (unable to assess DTR LLE due to patient apprehension) Skin: normal color, warm/dry Progress/Results/Core Measures Results/Orders My Orders Orders - REHANA YODER MD Orphenadrine Inj (Ed Only) (Norflex Inje (06/03/22 10:00) Ketorolac Injection (Toradol Injection) (06/03/22 10:00) Tramadol Tablet (Ultram Tablet) (06/03/22 11:15) Prednisone Tablet (Deltasone Tablet) (06/03/22 11:15) Medications Given in ED Current Medications Medications Dose Ordered Sig/Marian Route Start Time Stop Time Status Last Admin Dose Admin Ketorolac Tromethamine 15 mg ONCE ONCE IM 06/03/22 10:00 06/03/22 10:01 DC 06/03/22 10:03 15 MG Orphenadrine Citrate 60 mg ONCE ONCE IM 06/03/22 10:00 06/03/22 10:01 DC 06/03/22 10:03 60 MG Prednisone 50 mg ONCE ONCE PO 06/03/22 11:15 06/03/22 11:16 DC 06/03/22 11:18 50 MG Tramadol HCl 50 mg ONCE ONCE PO 06/03/22 11:15 06/03/22 11:16 DC 06/03/22 11:18 50 MG Vital Signs/I&O 06/03/22 09:20 Temp 36.3 Pulse 72 Resp 16 B/P (MAP) 138/100 (113) Pulse Ox 96 O2 Delivery Room Air Blood Pressure Mean: 113 Progress Progress Note : Time: 11:24 Progress Note Patient noted to be up and ambulatory with his walker. He states that he does not feel any better after the Toradol and Norflex. We will give a dose of tramadol and some prednisone here. I will send home prescriptions with him for tramadol and prednisone. Follow-up recommended with his primary care this week. Return precautions provided Departure Impression Primary Impression: Left leg pain Disposition: HOME, SELF-CARE Condition: Stable Departure-Patient Inst. Decision time for Depature: 11:25 Referrals: [facility] (PCP/Family) Primary Care Physician Patient Instructions: Hip Pain ED Add. Discharge Instructions: Drink plenty of fluids to stay well-hydrated. Take the tramadol 1 every 6 hours as needed for severe pain. Prednisone 50 mg once daily starting tomorrow for a total of 4 more days. Please call your primary care doctor's office today for a follow-up appointment this week for further evaluation. Scripts Prednisone (Prednisone) 50 Mg Tab 50 MG PO DAILY, #4 TAB Prov: REHANA YODER MD 06/03/22 Tramadol HCl (Tramadol HCl) 50 Mg Tablet 50 MG PO Q6H PRN for PAIN, #8 TAB 0 Refills Prov: REHANA YODER MD 06/03/22 Copy Copies To 1: JOCELYNE JAIMES KATHRYN M MD Jun 03, 2022 09:58
[2022-06-03] MEDS ORDERED: KETOROLAC 60 MG/2 ML VIAL IM ONE (10:00)
[2022-06-03] MEDS ORDERED: ORPHENADRINE 60 MG/2 ML (NORFLEX) AMP (ED ONLY) IM ONE (10:00)
[2022-06-03] MEDS ORDERED: predniSONE 20 MG TAB PO ONE (11:15)
[2022-06-03] MEDS ORDERED: PRD50T PO (11:28)
[2022-06-03] MEDS ORDERED: TRM50T PO (11:28)
== END 2022-06-03 11:35 | disposition home or self-care (01) ==
LOC: EDUNIT# 09:17 → ER 09:18
DX: M79.605 Pain in left leg (principal); Z28.310 Unvaccinated for COVID-19
CPT/HCPCS: 99284

== ENCOUNTER 2022-09-29 08:51 | Outpatient (RCR) | payer MEDICARE ==
[~2022-09-29 08:51] MED LIST changes: +PRD50T PO
== END 2022-10-18 | disposition home or self-care (01) ==
PROVIDERS: ATTEND Pain Medicine Interventional Pain Medicine
DX: M47.816 Spondylosis without myelopathy or radiculopathy, lumbar region (principal); Z98.1 Arthrodesis status

== ENCOUNTER 2022-11-11 09:22 | Outpatient (RCR) | payer MEDICARE | END 2022-11-18 | disposition home or self-care (01) | PROVIDERS: ATTEND Pain Medicine Interventional Pain Medicine | DX: M47.816 Spondylosis without myelopathy or radiculopathy, lumbar region (principal); Z98.1 Arthrodesis status ==

== ENCOUNTER → 2022-11-28 | Outpatient (CLI) | payer MEDICARE | LOC: WOUNDCARE 08:08 | PROVIDERS: ATTEND Family Medicine | DX: L60.3 Nail dystrophy (principal); L30.9 Dermatitis, unspecified; M05.60 Rheumatoid arthritis of unspecified site with involvement of other organs and systems; G90.09 Other idiopathic peripheral autonomic neuropathy | CPT/HCPCS: 11104; 87070; 87077; 87186; 87205; G0463 ==

== ENCOUNTER 2022-12-03 08:29 | Outpatient (RCR) | payer MEDICARE | END 2022-12-16 | disposition home or self-care (01) | PROVIDERS: ATTEND Pain Medicine Interventional Pain Medicine | DX: M47.816 Spondylosis without myelopathy or radiculopathy, lumbar region (principal); Z98.1 Arthrodesis status ==